=== PATIENT | male | born 1950 | race Caucasian/White ===

== ENCOUNTER → 2018-02-11 11:28 | Outpatient (CLI) | payer MEDICARE, BC, SELFPAY ==
[2018-02-11 15:57] LABS: Anion Gap 6 (5-15); BUN 20 mg/dL (7-18); BUN/Creat Ratio 16.3 RATIO (10-20); Calcium,Total 8.7 mg/dL (8.5-10.1); Chloride 106 mmol/L (98-107); Cholesterol 226 mg/dL (200); Creatinine, Serum 1.23 mg/dL (0.70-1.30); EST Glomerular Filtration Rate 62 mL/min (>60); Est Glom Filt Rate - Afr Amer 75 mL/min (>60); Glucose 117 mg/dL (74-106); Hemoglobin A1c 5.9 % (4.2-6.3); High Density Lipoprotein 47 mg/dL; PSA,Total - Annual Screen 2.34 ng/mL (0.00-4.00); Potassium 3.9 mmol/L (3.5-5.1); Sodium Level 141 mmol/L (136-145); Triglycerides 85 mg/dL; Very Low Density Lipoprotein 17 mg/dL (5-40)
== END ==
PROVIDERS: Visit Provider Family Medicine
DX: Z00.01 Encounter for general adult medical examination with abnormal findings (principal); E78.5 Hyperlipidemia, unspecified; R73.01 Impaired fasting glucose; Z12.5 Encounter for screening for malignant neoplasm of prostate
CPT/HCPCS: 36415; 80048; 80061; 83036; 84153; G0103

== ENCOUNTER → 2019-02-17 | Outpatient (CLI) | payer MEDICARE, BC, SELFPAY ==
[2019-02-17 15:42] LABS: Cholesterol 218 mg/dL (200); Glucose 104 mg/dL (74-106); High Density Lipoprotein 44 mg/dL; Triglycerides 96 mg/dL; Very Low Density Lipoprotein 19 mg/dL (5-40)
[2019-02-17 15:53] LABS: Hemoglobin A1c 5.8 % (4.2-6.3)
== END | disposition home or self-care (01) ==
LOC: LAB.FUTURE 11:13 → BFHLAB 02-19 15:24
PROVIDERS: Family Provider Family Medicine; PCP Family Medicine; Visit Provider Family Medicine
DX: E78.5 Hyperlipidemia, unspecified (principal); R73.01 Impaired fasting glucose
CPT/HCPCS: 36415; 80061; 82947; 83036

== ENCOUNTER 2020-01-26 05:29 | Day surgery (SDC) | payer MEDICARE, BC, SELFPAY ==
[2020-01-26] VITALS (8 sets, daily range): BP systolic 122–176; BP diastolic 62–109; PULSE 68–94; RESP 16; TEMP 36.4–37; O2SAT 97–100; BMI 24.9
[2020-01-26] MEDS: Lactated Ringers 1,000 ML 100 ML IV (06:01)
--- NOTE | 2020-01-26 06:12 | PCM.HP.STD ---
Problem List (1) Screening for intestinal cancer Status: Acute History of Present Illness Date of Admission: 01/26/20 The patient is a 69 year old M who presents for screening colonoscopy today. His previous one was 2008. He denies bright red blood per rectum or melena. No change in bowel habits. No abdominal pain. He otherwise enjoys good health. He denies fever or chills or shortness of breath or cough or chest pain or DVT. He denies personal history of polyps. Past Medical History Allergies No Known Allergies Allergy (Verified 01/26/20 05:42) Home Medications: Ambulatory Orders Medication Instructions Recorded Cholecalciferol (Vitamin D3) 2,000 unit PO DAILY 01/22/20 [Vitamin D3] Smoking Status: Former smoker Review of Systems Constitutional: Denies: Fever HEENT: Denies: Difficulty Swallowing Cardiovascular: Denies: Chest Pain Respiratory: Denies: Cough, Shortness of Breath Gastrointestinal: Denies: Abdominal Pain, Melena Psychiatric: Denies: Anxiety Endocrine: Denies: Change in Body Habitus VTE Information - Inpt Only VTE Present on Admission: No Patient Problems: Active and Suspected Problems Screening for intestinal cancer (Acute) - Physical Exam Vitals/I&O's: Vital Signs Temp Pulse Resp BP Pulse Ox 98.6 F 76 16 144/109 H 100 01/26/20 05:43 01/26/20 05:43 01/26/20 05:43 01/26/20 05:43 01/26/20 05:43 Oxygen Delivery Method Room Air Weight: 145 lb 4.554 oz Body Mass Index (BMI) 24.9 General: Alert, Oriented x3, Cooperative, No apparent distress HEENT: Atraumatic Oral: Moist Mucosa Neck: Supple Lungs: Clear to auscultation, Normal air movement Cardiovascular: Regular rate, Regular Rhythm Abdomen: Bowel Sounds Present, Soft, Non Tender Extremities: No Calf Tenderness Neurological: - - Normal cognition Psych/Mental Status: Normal Affect Current Medications Lactated Ringer's () 1,000 mls @ 100 mls/hr IV .Q10H EVANS Last Admin: 01/26/20 06:01 Dose: 100 mls/hr Documented by: Assessment/Plan All Active Problems Screening for intestinal cancer (Acute) Colonoscopy with possible biopsy or polypectomy is indicated. He is aware of the technique, benefit, risk, alternatives. He has had an opportunity to ask and have questions answered. He presents via open access today. We will proceed at his discretion. Duane Acosta M.D., F.A.C.S.
--- NOTE | 2020-01-26 06:47 | OP.COLON_ITS ---
Patient Name: Moris Acevedo Procedure Date: 01/26/2020 6:17 AM Date of : 1950 Age: 69 Procedure: Colonoscopy Indications: Screening for colorectal malignant neoplasm Providers: Duane Acosta MD Referring MD: Donta Prabhakar Medicines: Midazolam 3 mg IV, Meperidine 100 mg IV Patient Profile: Last Colonoscopy: more than 10 years ago. Complications: No immediate complications. Procedure: Pre-Anesthesia Assessment: - Prior to the procedure, a History and Physical was performed, and patient medications and allergies were reviewed. The patient's tolerance of previous anesthesia was also reviewed. The risks and benefits of the procedure and the sedation options and risks were discussed with the patient. All questions were answered, and informed consent was obtained. Prior Anticoagulants: The patient has taken no previous anticoagulant or antiplatelet agents. ASA Grade Assessment: II - A patient with mild systemic disease. After reviewing the risks and benefits, the patient was deemed in satisfactory condition to undergo the procedure. After I obtained informed consent, the scope was passed under direct vision. Throughout the procedure, the patient's blood pressure, pulse, and oxygen saturations were monitored continuously. The pediatric colonoscope was introduced through the anus and advanced to the cecum, identified by appendiceal orifice and ileocecal valve. The colonoscopy was performed without difficulty. The patient tolerated the procedure well. The quality of the bowel preparation was excellent. The ileocecal valve and the appendiceal orifice were photographed. Moderate Sedation: Moderate (conscious) sedation was personally administered by the endoscopist. The following parameters were monitored: oxygen saturation, heart rate, blood pressure, and response to care. Total physician intraservice time was 15 minutes. Scope In: 6:32:07 AM Scope Withdrawal Time 0 hours 6 minutes 30 seconds Scope Out: 6:43:18 AM Total Procedure Duration Time 0 hours 11 minutes 11 seconds Findings: The perianal and digital rectal examinations were normal. Multiple diverticula were found in the sigmoid colon and descending colon. The exam was otherwise without abnormality. Impression: - Diverticulosis in the sigmoid colon and in the descending colon. - The examination was otherwise normal. - No specimens collected. Recommendation: - Discharge patient to home. - Resume previous diet. - Continue present medications. - Repeat colonoscopy in 10 years for screening purposes. Procedure Code(s): --- Professional --- 47816, Colonoscopy, flexible; diagnostic, including collection of specimen(s) by brushing or washing, when performed (separate procedure) 54437, 59, Moderate sedation services provided by the same physician or other qualified health health care aide performing the diagnostic or therapeutic service that the sedation supports, requiring the presence of an independent trained observer to assist in the monitoring of the patient's level of consciousness and physiological status; initial 15 minutes of intraservice time, patient age 5 years or older Diagnosis Code(s): --- Professional --- Z12.11, Encounter for screening for malignant neoplasm of colon K57.30, Diverticulosis of large intestine without perforation or abscess without bleeding CPT copyright 2017 [employer]. All rights reserved. The codes documented in this report are preliminary and upon certified procedural coder review may be revised to meet current compliance requirements. Duane Acosta MD 01/26/2020 6:47:24 AM This report has been signed electronically. Number of Addenda: 0 Note Initiated On: 01/26/2020 6:17 AM
--- NOTE | 2020-01-26 06:47 | OP.CCLET_ITS ---
01/26/2020 Donta Prabhakar [address] [facility] [place] [address] Re : Colonoscopy procedure for Moris Acevedo Dear Dr. Prabhakar This procedure was performed on Sunday, January 26, 2020. My impressions and recommendations are as follows: Impressions : - Diverticulosis in the sigmoid colon and in the descending colon. - The examination was otherwise normal. - No specimens collected. Recommendations : - Discharge patient to home. - Resume previous diet. - Continue present medications. - Repeat colonoscopy in 10 years for screening purposes. My findings are described in the full procedure note, which is enclosed. If I can be of further assistance, please feel free to contact me at Doctor phone number(s): Work: . Sincerely, Duane Acosta MD 01/26/2020 6:47:24 AM This report has been signed electronically.
== END 2020-01-26 07:33 | disposition home or self-care (01) ==
LOC: EN 05:29 → AC 05:30
PROVIDERS: PCP Family Medicine; Referring Provider Family Medicine; Visit Provider Surgery
PROC: 0DJD8ZZ Inspection of Lower Intestinal Tract, Via Natural or Artificial Opening Endoscopic (ICD-10-PCS; CPT 45378; principal; 2020-01-26 06:25)
DX: Z12.11 Encounter for screening for malignant neoplasm of colon (principal); K57.30 Diverticulosis of large intestine without perforation or abscess without bleeding; Z11.59 Encounter for screening for other viral diseases; Z87.891 Personal history of nicotine dependence
CPT/HCPCS: G0121; 87635; 99152; 99153; C9803; J7120; U0003

== ENCOUNTER → 2020-02-11 11:05 | Outpatient (CLI) | payer MEDICARE, BC, SELFPAY ==
[2020-01-26 05:43] VITALS: BMI 24.9
[2020-02-11 15:33] LABS: Absolute Lymphocyte Count 2.25 X10^3/uL (0.83-4.51); Absolute Neutrophil Count 4.5 X10^3/uL (2.0-7.7); Basophil# 0.05 X10^3/uL; Basophil% 0.7 % (0-1); Eosinophil# 0.25 X10^3/uL; Eosinophils% 3.3 % (0-5); Hematocrit 44.6 % (40-54); Hemoglobin 14.1 g/dL (13.0-16.5); Lymphocyte # 2.25 X10^3/ul (4.0); Lymphocyte % 29.3 % (19-41); Mean Corp Hgb Conc 31.6 g/dL (32-36); Mean Corpuscular Hgb 29.4 pg (27.0-32.0); Mean Corpuscular Volume 92.9 fL (80-94); Mean Platelet Vol. 11.3 fl (6.2-12.0); Monocyte# 0.61 X10^3/uL; NRBC Flagged by Analyzer 0 % (0-5); Neutrophil # 4.49 X10^3/uL (2.7-7.7); Neutrophil % 58.4 % (47-70); Platelet Count 197 K/mm3 (150-450); RBC Distribution Width CV 13.2 % (11.6-14.6); RBC Distribution Width SD 45.2 fl (35.1-43.9); White Blood Count 7.7 K/mm3 (4.4-11.0)
[2020-02-11 15:53] LABS: AST(SGOT) 21 U/L (15-37); Alanine Aminotransfer ALT/SGPT 23 U/L (16-61); Albumin, Serum 3.6 g/dL (3.2-5.0); Alkaline Phosphatase 96 U/L (45-117); Anion Gap 7 (5-15); BUN 20 mg/dL (7-18); BUN/Creat Ratio 16.3 RATIO (10-20); Calcium,Total 8.7 mg/dL (8.5-10.1); Chloride 106 mmol/L (98-107); Cholesterol 224 mg/dL (200); Creatinine, Serum 1.23 mg/dL (0.70-1.30); EST Glomerular Filtration Rate 62 mL/min (>60); Est Glom Filt Rate - Afr Amer 75 mL/min (>60); Globulin 3.7 g/dL (2.2-4.2); Glucose 96 mg/dL (74-106); High Density Lipoprotein 53 mg/dL; PSA,Total - Annual Screen 2.19 ng/mL (0.00-4.00); Potassium 3.6 mmol/L (3.5-5.1); Protein, Total 7.3 g/dL (6.4-8.2); Sodium Level 141 mmol/L (136-145); Triglycerides 86 mg/dL; Very Low Density Lipoprotein 17 mg/dL (5-40)
== END ==
PROVIDERS: PCP Family Medicine; Visit Provider Family Medicine
DX: E78.5 Hyperlipidemia, unspecified (principal); Z12.5 Encounter for screening for malignant neoplasm of prostate; R73.01 Impaired fasting glucose; I10 Essential (primary) hypertension
CPT/HCPCS: 36415; 80053; 80061; 84153; 85025; G0103

== ENCOUNTER 2020-06-08 09:37 | Outpatient (RCR) | payer MEDICARE, BC, SELFPAY ==
[2020-01-26 05:43] VITALS: BMI 24.9
== END 2020-06-08 23:59 ==
LOC: IMMUN 09:37
PROVIDERS: PCP Family Medicine; Visit Provider Family Medicine
DX: Z23 Encounter for immunization (principal)
CPT/HCPCS: 0011A; 0012A; 91301

== ENCOUNTER → 2020-12-28 | Outpatient (CLI) | payer MEDICARE, BC, SELFPAY ==
[2020-12-31 03:07] LABS: Covid Inpatient test code BILL Performed (.)
== END | disposition home or self-care (01) ==
LOC: LABSPEC 16:56
PROVIDERS: PCP Family Medicine; Visit Provider Family Medicine
DX: Z20.828 Contact with and (suspected) exposure to other viral communicable diseases (principal)
CPT/HCPCS: 87635; U0005; U0003

== ENCOUNTER 2022-04-09 13:00 | Outpatient (RCR) | payer MEDICARE, BC, SELFPAY ==
--- NOTE | 2022-03-19 14:03 | HP.PTEVAL_ITS ---
Patient's Visit Information ALEJA SALCIDO is a 71 year old M referred to Physical Therapy by Dr. Donta Prabhakar DO with a diagnosis of Unsteady gait. Date of Evaluation: 03/19/22 Physical Therapist: JOURDAN OsbornT, OCS, CSCS - Visit Plan Duration: one f/u in 3 weeks. Plan: Taught VOR tandem stance and foam stance ft ec today 2-3 min of each by counter for safety. - Subjective As we age, I am losing a little bit if balance, not unexpectedly. Having trouble improving his proprioception. PCP gave him some exercises and some are resistance for strength but more broadly concerned about getting up off the floor. He also suggested he do some balance ex. And got suggestions from therapist 2 yrs ago like toe heel walking and has been doing them at home. Since we have moved past the [facility], he wants to ensure a good program. Wants to fine tune those exercises. No falls. No problems with activities. ADLS are going OK. Activities are limited with heavy lifting but not due to balance. 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 Hobbies: hiking and biking, birdwatching.Not many limitations in these areas. Needs walking stick at [facility]. - Objective Walks easily, trasnfers easily, steps reciprocal without rail. reflexes 2/3 patella and achilles. coordination to reciprocal toe tap and heel to ryan are good. Sensation LE WNL to gross LE. Strength LE 4/5 without a problem. VOR H walking is wobbly]standing foam ec wobbly but ablke. - Balance/Special Test Scores Functional Gait Assessment Score: 30 % Disability: 0 CATSIB Score (Max score 120 seconds): 112 Lower Extremity Functional Score: 62 - Goals Goal 1:: I approp HEOp to minimize future problems Goal Time Frame: 2-4 Weeks - Rehabilitation Potential Physical Therapy Diagnosis: Doing well with balance but appropriate to teach HEP for vestibular and VOR. - Anticipated Interventions Patient/Client Instruction: Educate patient on: Condition, Risk Factors For the Purpose of:: To improve muscle performance and motor function, To improve gait and locomotor functions Therapeutic Exercise to Include: Balance training For the Purpose of:: To improve gait and locomotor functions, To improve safety Thank you for the opportunity to evaluate your patient. For Medicare and Medicare HMO plans, please review the plan of care and approve it. It will need to be FAXED BACK to us at [phone] for Medicare purposes. For Medicare only, by signing this I certify the plan of care. Please let me know if there are questions or concerns regarding this plan of care. Physician Signature: Date:
--- NOTE | 2022-04-09 13:47 | HP.PTDCSUM ---
It has been my pleasure to treat ALEJA SALCIDO referred by Dr. Donta Prabhakar DO, with the diagnosis of Unsteady gait for a total of 2 visit(s). Discharge Date: 04/09/22 Please see the following information for a summary of their discharge status. Subjective: Did exercises all but one day.Doing better with them. % Improvement: 0 Objective/Function: safe with exercises and understands them well. Goal 1:: I approp HEp to minimize future problems Goal Progress: Goal Met Plan: Taught VOR tandem stance and foam stance ft ec today 2-3 min of each by counter for safety. If there are questions or concerns regarding this patient's physical therapy, please feel free to call me at [phone]. Thank you for the referral of this patient. Sincerely, Hal Garduno, DPT, OCS, CSCS Balance/Gait/Functional tests - Balance/Special Test Scores Functional Gait Assessment Score: 30 % Disability: 0 CATSIB Score (Max score 120 seconds): 112 Lower Extremity Functional Score: 62
== END 2022-04-09 19:00 | disposition home or self-care (01) ==
LOC: PT 13:00
PROVIDERS: PCP Family Medicine; Referring Provider Family Medicine; Visit Provider Family Medicine
DX: R26.81 Unsteadiness on feet (principal); M15.9 Polyosteoarthritis, unspecified
CPT/HCPCS: 97110; 97161

== ENCOUNTER → 2022-05-23 | Outpatient (CLI) | payer MEDICARE, BC, SELFPAY ==
[2022-05-23 15:03] LABS: Absolute Lymphocyte Count 1.88 X10^3/uL (0.83-4.51); Absolute Neutrophil Count 7.2 X10^3/uL (2.0-7.7); Basophil# 0.08 X10^3/uL; Basophil% 0.8 % (0-1); Hemoglobin 12.5 g/dL (13.0-16.5); Lymphocyte # 1.88 X10^3/ul (0.83-4.51); Lymphocyte % 18.8 % (19-41); Mean Corp Hgb Conc 31.3 g/dL (32-36); Mean Corpuscular Hgb 27.7 pg (27.0-32.0); Mean Corpuscular Volume 88.7 fL (80-94); Monocyte# 0.74 X10^3/uL; Monocyte% 7.4 % (0-10); NRBC Flagged by Analyzer 0 % (0-5); Neutrophil # 7.18 X10^3/uL (2.7-7.7); Neutrophil % 71.8 % (47-70); Platelet Count 235 K/mm3 (150-450); RBC Distribution Width CV 13.5 % (11.6-14.6); RBC Distribution Width SD 44.1 fl (35.1-43.9); Red Blood Count 4.51 M/mm3 (4.6-6.2)
[2022-05-23 15:07] LABS: Color, Urine Yellow (Yellow); Glucose, Dipstick Normal (Normal); Ketone-Dipstick 5 mg/dl (Negative); Leukocyte Esterase-Dipstick Negative /ul (Negative); Nitrite-Dipstick Negative (Negative); Occult Blood-Urine 10 /ul (Negative); Protein-Dipstick 15 mg/dl (Negative); Urine Bilirubin Dipstick Negative (Negative); Urine Urobilinogen Normal (Normal)
[2022-05-23 15:08] LABS: Urine Clarity Clear (Clear)
[2022-05-23 15:28] LABS: Hemoglobin A1c 6.1 % (3.8-5.6)
[2022-05-23 15:32] LABS: ALB/GLOB Ratio 0.9 RATIO (0.9-2.4); AST(SGOT) 16 U/L (15-37); Alanine Aminotransfer ALT/SGPT 19 U/L (16-61); Albumin, Serum 3.4 g/dL (3.2-5.0); Alkaline Phosphatase 104 U/L (45-117); Anion Gap 6 (5-15); BUN 23 mg/dL (7-18); BUN/Creat Ratio 16.5 RATIO (10-20); Chloride 106 mmol/L (98-107); Cholesterol 194 mg/dL (200); Creatinine, Serum 1.39 mg/dL (0.70-1.30); EST Glomerular Filtration Rate 53 mL/min (>60); Est Glom Filt Rate - Afr Amer 65 mL/min (>60); Globulin 3.9 g/dL (2.2-4.2); Glucose 123 mg/dL (74-106); High Density Lipoprotein 46 mg/dL; PSA,Total - Annual Screen 2.63 ng/mL (0.00-4.00); Potassium 3.8 mmol/L (3.5-5.1); Protein, Total 7.3 g/dL (6.4-8.2); Sodium Level 141 mmol/L (136-145); Triglycerides 72 mg/dL; Very Low Density Lipoprotein 14 mg/dL (5-40)
[2022-05-23 19:14] LABS: Xtra Tube EP Lab EXTRA TUBE
== END | disposition home or self-care (01) ==
LOC: BFHLAB 11:04
PROVIDERS: PCP Family Medicine; Visit Provider Family Medicine
DX: E78.5 Hyperlipidemia, unspecified (principal); R73.01 Impaired fasting glucose; R03.0 Elevated blood-pressure reading, without diagnosis of hypertension; R35.0 Frequency of micturition; R79.89 Other specified abnormal findings of blood chemistry
CPT/HCPCS: 36415; 80053; 80061; 81002; 83036; 84153; 85025; G0103

== ENCOUNTER → 2022-06-05 | Outpatient (CLI) | payer MEDICARE, BC, SELFPAY ==
[2022-06-05 16:03] LABS: Vitamin B12 258 pg/mL (211-911)
[2022-06-05 16:13] LABS: Ferritin 158 ng/mL (26-388); Iron 26 ug/dL (65-175); LDH 188 U/L (87-241)
[2022-06-08 15:08] LABS: PROEL- A/G Ratio 1.2 (0.7-1.7); PROEL- Albumin 3.5 g/dL (2.9-4.4); PROEL- Alpha-1 Globulin 0.3 g/dL (0.0-0.4); PROEL- Alpha-2 Globulin 0.8 g/dL (0.4-1.0); PROEL- Beta Globulin 0.9 g/dL (0.7-1.3); PROEL- TOTAL PROTEIN 6.5 g/dL (6.0-8.5); PROELU- Albumin, Urine 21.1 % (.); PROELU- Alpha-1-Globulin,Ur 3.8 % (.); PROELU- Alpha-2-Globulin,Ur 28.8 % (.); PROELU- Gamma Globulin, Ur 23.2 % (.); Total Protein, Ur 13.6 mg/dL (Not Estab.)
== END | disposition home or self-care (01) ==
LOC: BFHLAB 11:01
PROVIDERS: PCP Family Medicine; Visit Provider Family Medicine
DX: R79.89 Other specified abnormal findings of blood chemistry (principal); D64.9 Anemia, unspecified; R80.9 Proteinuria, unspecified
CPT/HCPCS: 36415; 82607; 82728; 82784; 83540; 83615; 84165; 84166; 86334; 86335

== ENCOUNTER → 2022-06-08 | Outpatient (CLI) | payer MEDICARE, BC, SELFPAY ==
[2022-06-11 13:07] LABS: Immunoglobulin G 896 mg/dL (603-1613)
[2022-06-12 20:52] LABS: Immunoglobulin A 43 mg/dL (61-437); Immunoglobulin M 396 mg/dL (15-143)
== END | disposition home or self-care (01) ==
LOC: BFHLAB 15:58
PROVIDERS: PCP Family Medicine; Visit Provider Family Medicine
DX: R79.89 Other specified abnormal findings of blood chemistry (principal); D64.9 Anemia, unspecified; R80.9 Proteinuria, unspecified
CPT/HCPCS: 82784; 86334

== ENCOUNTER → 2022-08-30 | Outpatient (CLI) | payer MEDICARE, BC, SELFPAY ==
--- NOTE | 2022-08-30 15:15 | US_ITS ---
STUDY: RENAL ULTRASOUND - COMPLETE REASON FOR EXAM: Male, 72 years old. CKD TECHNIQUE: Ultrasound evaluation of the kidneys was performed with real-time and static larios-scale imaging. COMPARISON: None. FINDINGS: RIGHT KIDNEY: Normal location of the right kidney, which is normal in size. The right kidney measures 9.5 cm. There is a normal cortex of the right kidney. The renal cortex measures 1.2 cm. There is no right renal mass or cyst. There are no right renal calculi. There is no right hydronephrosis. DISTAL RIGHT URETER: There is non-visualization of the distal right ureter. There is no demonstrated right ureterovesical junction calculus. There is a visualized right ureteral jet. LEFT KIDNEY: Normal location of the left kidney, which is normal in size. The left kidney measures 9.4 cm. There is a normal cortex of the left kidney. The renal cortex measures 1.3 cm. 2.5 cm cyst in the midsection of the left kidney. There are no left renal calculi. There is no left hydronephrosis. DISTAL LEFT URETER: There is non-visualization of the distal left ureter. There is no demonstrated left ureterovesical junction calculus. There is a visualized left ureteral jet. BLADDER: The distended urinary bladder has a volume of 59 ml. The empty urinary bladder has a volume of ml. There is a normal wall thickness of the distended urinary bladder. There is no demonstrated mass within the urinary bladder. There are no demonstrated bladder calculi. US/Kidney and Bladder IMPRESSION: Normal ultrasound of the kidneys and urinary bladder. Left renal cyst. Electronically Signed: Bill Amos MD at 21:03 EDT ,
== END | disposition home or self-care (01) ==
LOC: US 15:13
PROVIDERS: PCP Family Medicine; Referring Provider Internal Medicine Nephrology; Visit Provider Internal Medicine Nephrology
DX: N18.32 Chronic kidney disease, stage 3b (principal)
CPT/HCPCS: 76770

== ENCOUNTER → 2022-10-03 | Outpatient (CLI) | payer MEDICARE, BC, SELFPAY ==
[2022-10-03 15:37] LABS: BUN 20 mg/dL (7-18); BUN/Creat Ratio 16.4 RATIO (10-20); Chloride 108 mmol/L (98-107); Creatinine, Serum 1.22 mg/dL (0.70-1.30); EST Glomerular Filtration Rate 62 mL/min (>60); Est Glom Filt Rate - Afr Amer 75 mL/min (>60); Glucose 113 mg/dL (74-106); Phosphorus 2.4 mg/dL (2.5-4.9); Potassium 3.8 mmol/L (3.5-5.1); Sodium Level 140 mmol/L (136-145)
[2022-10-03 15:40] LABS: Hematocrit 37.2 % (40-54); Mean Corp Hgb Conc 29.6 g/dL (32-36); Mean Corpuscular Hgb 25.6 pg (27.0-32.0); Mean Corpuscular Volume 86.7 fL (80-94); Mean Platelet Vol. 10.3 fl (6.2-12.0); Platelet Count 276 K/mm3 (150-450); RBC Distribution Width SD 44.4 fl (35.1-43.9); Red Blood Count 4.29 M/mm3 (4.6-6.2); White Blood Count 12.4 K/mm3 (4.4-11.0)
[2022-10-03 15:47] LABS: PTHIN 76.5 pg/mL (18.4-80.1)
== END | disposition home or self-care (01) ==
LOC: BFHLAB 13:33
PROVIDERS: PCP Family Medicine; Referring Provider Internal Medicine Nephrology; Visit Provider Internal Medicine Nephrology
DX: N18.32 Chronic kidney disease, stage 3b (principal)
CPT/HCPCS: 36415; 80069; 83970; 85027

== ENCOUNTER → 2023-05-29 | Outpatient (CLI) | payer MEDICARE, BC, SELFPAY ==
[2023-05-29 15:04] LABS: Absolute Lymphocyte Count 1.53 X10^3/uL (0.83-4.51); Absolute Neutrophil Count 8.5 X10^3/uL (2.0-7.7); Basophil# 0.06 X10^3/uL; Basophil% 0.6 % (0-1); Eosinophil# 0.08 X10^3/uL; Eosinophils% 0.7 % (0-5); Hematocrit 37.3 % (40-54); Hemoglobin 11.2 g/dL (13.0-16.5); Lymphocyte # 1.53 X10^3/ul (0.83-4.51); Lymphocyte % 14.1 % (19-41); Mean Corpuscular Hgb 25.6 pg (27.0-32.0); Mean Corpuscular Volume 85.4 fL (80-94); Mean Platelet Vol. 10.2 fl (6.2-12.0); Monocyte# 0.66 X10^3/uL; Monocyte% 6.1 % (0-10); NRBC Flagged by Analyzer 0 % (0-5); Neutrophil % 78.3 % (47-70); Platelet Count 251 K/mm3 (150-450); RBC Distribution Width CV 14.8 % (11.6-14.6); RBC Distribution Width SD 46.4 fl (35.1-43.9); Red Blood Count 4.37 M/mm3 (4.6-6.2); White Blood Count 10.9 K/mm3 (4.4-11.0)
[2023-05-29 15:24] LABS: ALB/GLOB Ratio 0.7 RATIO (0.9-2.4); AST(SGOT) 16 U/L (15-37); Alanine Aminotransfer ALT/SGPT 22 U/L (16-61); Albumin, Serum 3.1 g/dL (3.2-5.0); Alkaline Phosphatase 117 U/L (45-117); Anion Gap 7 (5-15); BUN 19 mg/dL (7-18); BUN/Creat Ratio 12.6 RATIO (10-20); Calcium,Total 9.3 mg/dL (8.5-10.1); Chloride 106 mmol/L (98-107); Cholesterol 190 mg/dL (200); Creatinine, Serum 1.51 mg/dL (0.70-1.30); EST Glomerular Filtration Rate 48 mL/min (>60); Est Glom Filt Rate - Afr Amer 59 mL/min (>60); Globulin 4.2 g/dL (2.2-4.2); Glucose 107 mg/dL (74-106); High Density Lipoprotein 45 mg/dL; PSA,Total - Annual Screen 2.07 ng/mL (0.00-4.00); Potassium 3.8 mmol/L (3.5-5.1); Protein, Total 7.3 g/dL (6.4-8.2); Sodium Level 138 mmol/L (136-145); Triglycerides 70 mg/dL; Very Low Density Lipoprotein 14 mg/dL (5-40)
== END | disposition home or self-care (01) ==
PROVIDERS: PCP Family Medicine; Referring Provider Family Medicine; Visit Provider Family Medicine
DX: I10 Essential (primary) hypertension (principal); E78.5 Hyperlipidemia, unspecified; Z12.5 Encounter for screening for malignant neoplasm of prostate
CPT/HCPCS: 36415; 80053; 80061; 84153; 85025; G0103

== ENCOUNTER → 2023-07-04 | Outpatient (CLI) | payer MEDICARE, BC, SELFPAY | END | disposition home or self-care (01) | LOC: SL 11:45 | PROVIDERS: PCP Family Medicine; Referring Provider Family Medicine; Visit Provider Family Medicine | DX: G47.30 Sleep apnea, unspecified (principal) | CPT/HCPCS: 95806 ==

== ENCOUNTER → 2023-12-02 | Outpatient (CLI) | payer MEDICARE, BC, SELFPAY ==
[2023-12-02 15:14] LABS: Absolute Lymphocyte Count 1.76 X10^3/uL (0.83-4.51); Absolute Neutrophil Count 7.6 X10^3/uL (2.0-7.7); Basophil# 0.06 X10^3/uL; Basophil% 0.6 % (0-1); Eosinophil# 0.25 X10^3/uL; Eosinophils% 2.4 % (0-5); Hematocrit 39.9 % (40-54); Lymphocyte # 1.76 X10^3/ul (0.83-4.51); Lymphocyte % 17.1 % (19-41); Mean Corp Hgb Conc 30.1 g/dL (32-36); Mean Corpuscular Hgb 25.8 pg (27.0-32.0); Mean Corpuscular Volume 85.8 fL (80-94); Monocyte# 0.64 X10^3/uL; Monocyte% 6.2 % (0-10); NRBC Flagged by Analyzer 0 % (0-5); Neutrophil # 7.58 X10^3/uL (2.7-7.7); Neutrophil % 73.5 % (47-70); Platelet Count 253 K/mm3 (150-450); RBC Distribution Width CV 14.8 % (11.6-14.6); RBC Distribution Width SD 46.9 fl (35.1-43.9); Red Blood Count 4.65 M/mm3 (4.6-6.2); White Blood Count 10.3 K/mm3 (4.4-11.0)
[2023-12-02 15:35] LABS: ALB/GLOB Ratio 0.8 RATIO (0.9-2.4); AST(SGOT) 17 U/L (15-37); Alanine Aminotransfer ALT/SGPT 17 U/L (16-61); Albumin, Serum 3.2 g/dL (3.2-5.0); Alkaline Phosphatase 82 U/L (45-117); Anion Gap 7 (5-15); BUN 22 mg/dL (7-18); BUN/Creat Ratio 16.3 RATIO (10-20); Calcium,Total 9.2 mg/dL (8.5-10.1); Chloride 105 mmol/L (98-107); Creatinine, Serum 1.35 mg/dL (0.70-1.30); EST Glomerular Filtration Rate 55 mL/min (>60); Est Glom Filt Rate - Afr Amer 67 mL/min (>60); Ferritin 119 ng/mL (26-388); Globulin 4.2 g/dL (2.2-4.2); Glucose 114 mg/dL (74-106); Iron 37 ug/dL (65-175); Phosphorus 2.6 mg/dL (2.5-4.9); Potassium 3.9 mmol/L (3.5-5.1); Protein, Total 7.4 g/dL (6.4-8.2); Sodium Level 138 mmol/L (136-145)
[2023-12-02 15:36] LABS: PTHIN 64.9 pg/mL (18.4-80.1)
[2023-12-02 15:38] LABS: Vitamin B12 1274 pg/mL (211-911); Vitamin D,25 Hydroxy 46.1 ng/mL
[2023-12-02 16:03] LABS: Microalbumin,Random Urine 21.5 mg/L (NO RANGE EST.); Microalbumin:Creatinine Ratio 16.3 mg/g CRE (<30 mg/g CRE)
== END | disposition home or self-care (01) ==
LOC: MTLAB 10:57
PROVIDERS: PCP Family Medicine; Referring Provider Family Medicine; Visit Provider Family Medicine
DX: N18.31 Chronic kidney disease, stage 3a (principal); D64.9 Anemia, unspecified
CPT/HCPCS: 36415; 80053; 82043; 82306; 82570; 82607; 82728; 83540; 83970; 84100; 85025

== ENCOUNTER → 2024-06-01 | Outpatient (CLI) | payer MEDICARE, BC, SELFPAY ==
[2024-06-01 15:37] LABS: Absolute Lymphocyte Count 1.81 X10^3/uL (0.83-4.51); Absolute Neutrophil Count 7.6 X10^3/uL (2.0-7.7); Basophil# 0.07 X10^3/uL; Basophil% 0.7 % (0-1); Eosinophil# 0.12 X10^3/uL; Eosinophils% 1.2 % (0-5); Hematocrit 38.5 % (40-54); Hemoglobin 11.3 g/dL (13.0-16.5); Lymphocyte # 1.81 X10^3/ul (0.83-4.51); Lymphocyte % 17.4 % (19-41); Mean Corp Hgb Conc 29.4 g/dL (32-36); Mean Corpuscular Hgb 23.4 pg (27.0-32.0); Mean Corpuscular Volume 79.9 fL (80-94); Mean Platelet Vol. 11.1 fl (6.2-12.0); Monocyte# 0.76 X10^3/uL; Monocyte% 7.3 % (0-10); NRBC Flagged by Analyzer 0 % (0-5); Neutrophil # 7.61 X10^3/uL (2.7-7.7); Neutrophil % 73.2 % (47-70); Platelet Count 304 K/mm3 (150-450); RBC Distribution Width SD 43.5 fl (35.1-43.9); Red Blood Count 4.82 M/mm3 (4.6-6.2); White Blood Count 10.4 K/mm3 (4.4-11.0)
[2024-06-01 16:13] LABS: ALB/GLOB Ratio 0.8 RATIO (0.9-2.4); AST(SGOT) 12 U/L (15-37); Alanine Aminotransfer ALT/SGPT 15 U/L (16-61); Albumin, Serum 3.3 g/dL (3.2-5.0); Alkaline Phosphatase 95 U/L (45-117); Anion Gap 7 (5-15); BUN 19 mg/dL (7-18); BUN/Creat Ratio 12.8 RATIO (10-20); Calcium,Total 9.2 mg/dL (8.5-10.1); Chloride 105 mmol/L (98-107); Cholesterol 185 mg/dL (200); Creatinine, Serum 1.48 mg/dL (0.70-1.30); EST Glomerular Filtration Rate 49 mL/min (>60); Est Glom Filt Rate - Afr Amer 60 mL/min (>60); Glucose 113 mg/dL (74-106); High Density Lipoprotein 51 mg/dL; Phosphorus 2.8 mg/dL (2.5-4.9); Potassium 3.8 mmol/L (3.5-5.1); Protein, Total 7.3 g/dL (6.4-8.2); Sodium Level 139 mmol/L (136-145); Triglycerides 80 mg/dL; Very Low Density Lipoprotein 16 mg/dL (5-40)
[2024-06-01 16:16] LABS: Vitamin B12 885 pg/mL (211-911)
[2024-06-01 16:21] LABS: PTHIN 54.3 pg/mL (18.4-80.1)
[2024-06-01 16:45] LABS: Hemoglobin A1c 6.3 % (3.8-5.6)
== END | disposition home or self-care (01) ==
LOC: MTLAB 11:32
PROVIDERS: PCP Family Medicine; Referring Provider Family Medicine; Visit Provider Family Medicine
DX: I12.9 Hypertensive chronic kidney disease with stage 1 through stage 4 chronic kidney disease, or unspecified chronic kidney disease (principal); N18.31 Chronic kidney disease, stage 3a; D64.9 Anemia, unspecified; E78.5 Hyperlipidemia, unspecified; R73.01 Impaired fasting glucose; E53.8 Deficiency of other specified B group vitamins
CPT/HCPCS: 36415; 80053; 80061; 82607; 83036; 83970; 84100; 85025

== ENCOUNTER → 2024-06-09 | Outpatient (CLI) | payer MEDICARE, BC, SELFPAY ==
[2024-06-09 18:26] LABS: PSA,Total - Annual Screen 2.38 ng/mL (0.00-4.00)
== END | disposition home or self-care (01) ==
LOC: BFHLAB 15:11
PROVIDERS: PCP Family Medicine; Referring Provider Family Medicine; Visit Provider Family Medicine
DX: I12.9 Hypertensive chronic kidney disease with stage 1 through stage 4 chronic kidney disease, or unspecified chronic kidney disease (principal); R73.03 Prediabetes; N18.9 Chronic kidney disease, unspecified; D64.9 Anemia, unspecified; Z12.5 Encounter for screening for malignant neoplasm of prostate
CPT/HCPCS: 36415; 84153; G0103

== ENCOUNTER → 2024-11-30 | Outpatient (CLI) | payer MEDICARE, BC, SELFPAY ==
[2024-11-30 15:25] LABS: Hematocrit 32.1 % (40-54); Hemoglobin 9.1 g/dL (13.0-16.5); Immature Granulocytes Count 0.040 X10^3/uL (0.0-0.0); Mean Corp Hgb Conc 28.3 g/dL (32-36); Mean Corpuscular Volume 75.4 fL (80-94); Mean Platelet Vol. 11.1 fl (6.2-12.0); NRBC Flagged by Analyzer 0 % (0-5); Platelet Count 334 K/mm3 (150-450); RBC Distribution Width CV 16.3 % (11.6-14.6); RBC Distribution Width SD 44.4 fl (35.1-43.9); Red Blood Count 4.26 M/mm3 (4.6-6.2); White Blood Count 12.9 K/mm3 (4.4-11.0)
[2024-11-30 16:42] LABS: Cholesterol 160 mg/dL (<=200); Low Density Lipoprotein Calc. 103 mg/dL; Triglycerides 53 mg/dL; Very Low Density Lipoprotein 11 mg/dL (5-40); cholesterol:hdl ratio screen 3.46
[2024-11-30 16:44] LABS: AST(SGOT) 14 U/L (<=37); Alanine Aminotransfer ALT/SGPT 9 U/L (<=46); Albumin, Serum 3.7 g/dL (3.4-4.8); Alkaline Phosphatase 87 U/L (40-129); Anion Gap 12 (5-15); BUN 29 mg/dL (4-19); BUN/Creat Ratio 20.7 RATIO (10-20); Calcium,Total 9.0 mg/dL (7.6-11.0); Carbon Dioxide 22.3 mmol/L (21.0-32.0); Chloride 105 mmol/L (98-108); Globulin 3.1 g/dL (2.2-4.2); Glucose 117 mg/dL (70-99); Potassium 4.1 mmol/L (3.3-5.1)
--- OUTSIDE RECORDS SUMMARY | 2024-11-30 18:45 | XMS RPT_ITS | CCD ---
Author Organization [facility] Care Team Providers Care Oil Recovery Operator Name Role Phone Donta Prabhakar Attending Unavailable Donta Prabhakar Referring Unavailable Donta Prabhakar Primary Care Unavailable Donta Prabhakar Attending Unavailable Donta Prabhakar Referring Unavailable Donta Prabhakar Primary Care Unavailable Donta Prabhakar Attending Unavailable Vanna, Donta Primary Care Unavailable Vanna, Donta Primary Care Unavailable Rosa Maria Aquino Attending Unavailable Rosa Maria Aquino Attending Unavailable Donta Prabhakar Primary Care Unavailable Donta Prabhakar Attending Unavailable Vanna, Donta Primary Care Unavailable Donta Prabhakar Primary Care Unavailable Donta Prabhakar Attending Unavailable Donta Prabhakar Referring Unavailable Donta Prabhakar Attending Unavailable Donta Prabhakar Referring Unavailable Donta Prabhakar Primary Care Unavailable Medications Current Medications Medication Drug Class(es) Dates Sig (Normalized) Sig (Original) cholecalciferol 0.05 mg oral capsule (6 sources) Vitamin D Start: 01-22-2020 take 2000 [IU] by mouth once daily Cholecalciferol (Vitamin D3) Active 2000 UNIT PO DAILY January 22, 2020 12:00am Problems Problem Classification Problem Date Documented Da te Episodic/Chronic Chronic kidney disease (3 sources) Chronic kidney disease; Translations: [Chronic kidney disease, stage 3a] Onset: 10-07-2023 Diabetes mellitus without complication (1 source) Prediabetes; Translations: [Prediabetes] Onset: 06-11-2024 Episodic Essential hypertension (1 source) Essential (primary) hypertension; Translations: [Essential (primary) hypertension] Onset: 06-11-2024 Chronic Hypertension with complications and secondary hypertension (1 source) Hypertensive chronic kidney disease with stage 1 through stage 4 chronic kidney disease, or unspecified chronic kidney disease; Translations: [Hypertensive chronic kidney disease with stage 1 through stage 4 chronic kidney disease, or unspecified chronic kidney disease] Onset: 06-24-2024 Chronic Other screening for suspected conditions (not mental disorders or infectious disease) (6 sources) Patient encounter status; Translations: [Encounter for screening for malignant neoplasm of intestinal tract, unspecified] 01-26-2020 Episodic Residual codes; unclassified (1 source) Sleep apnea, unspecified; Translations: [Sleep apnea, unspecified] Onset: 07-09-2023 Chronic Results Test Name Value Interpretation Reference Range Facility PSA,Total - Annual Screenon 06-09-2024 PSA,TOT SCREEN 2.38 ng/mL Normal 0.00-4.00 [facility] Comment on above: Result Comment: This test was performed using the TPSA assay method for the [employer] chemistry system. Values obtained with different assay methods cannot be used interchangably. When changing PSA assays in the course of monitoring a patient, additional sequential testing should be carried out to confirm baseline values. Performed By: #### L 501.9910 #### [facility] [address] [place], [address] CBC W/Diff, Automatedon 05-23 Absolute Lymph 1.81 X10 3/uL Normal 0.83-4.51 [facility] Comment on above: Performed By: #### L 502.0250, L503.0105, L506.1000, L100.0100, L503.6550, L501.2300, L503.6150, L500.4050, L509.1000 #### [facility] [address] [place], [address] Absolute Neut 7.6 X10 3/uL Normal 2.0-7.7 [facility] Comment on above: Performed By: #### L 502.0250, L503.0105, L506.1000, L100.0100, L503.6550, L501.2300, L503.6150, L500.4050, L509.1000 #### [facility] [address] [place], [address] Basophils/100 WBC (Bld) 0.7 % Normal 0-1 [facility] Comment on above: Performed By: #### L 502.0250, L503.0105, L506.1000, L100.0100, L503.6550, L501.2300, L503.6150, L500.4050, L509.1000 #### [facility] [address] [place], [address] Eosinophils/100 WBC (Bld) 1.2 % Normal 0-5 [facility] Comment on above: Performed By: #### L 502.0250, L503.0105, L506.1000, L100.0100, L503.6550, L501.2300, L503.6150, L500.4050, L509.1000 #### [facility] [address] [facility] [place], [address] Erythrocyte distribution width (RBC) [Ratio] 15.0 % High 11.6-14.6 [facility] Comment on above: Performed By: #### L 502.0250, L503.0105, L506.1000, L100.0100, L503.6550, L501.2300, L503.6150, L500.4050, L509.1000 #### [facility] [address] [facility] [place], [address] Hematocrit (Bld) [Volume fraction] 38.5 % Low 40-54 [facility] Comment on above: Performed By: #### L 502.0250, L503.0105, L506.1000, L100.0100, L503.6550, L501.2300, L503.6150, L500.4050, L509.1000 #### [facility] [address] [place], [address] Hemoglobin (Bld) [Mass/Vol] 11.3 g/dL Low 13.0-16.5 [facility] Comment on above: Performed By: #### L 502.0250, L503.0105, L506.1000, L100.0100, L503.6550, L501.2300, L503.6150, L500.4050, L509.1000 #### [facility] [address] [place], [address] IG% 0.200 Normal 0.0-0.9 [facility] Comment on above: Result Comment: IG% - Immature Granulocytes (promyelocytes, myelocytes and metamyelocytes) > 1% indicates that a LEFT SHIFT is Present. Performed By: #### L 502.0250, L503.0105, L506.1000, L100.0100, L503.6550, L501.2300, L503.6150, L500.4050, L509.1000 #### [facility] [address] [facility] [address] [place], [address] Lymphocytes/100 WBC (Bld) 17.4 % Low 19-41 [facility] Comment on above: Performed By: #### L 502.0250, L503.0105, L506.1000, L100.0100, L503.6550, L501.2300, L503.6150, L500.4050, L509.1000 #### [facility] [address] [facility] [place], [address] MCH (RBC) [Entitic mass] 23.4 pg Low 27.0-32.0 [facility] Comment on above: Performed By: #### L 502.0250, L503.0105, L506.1000, L100.0100, L503.6550, L501.2300, L503.6150, L500.4050, L509.1000 #### [facility] [address] [place], [address] MCHC (RBC) [Mass/Vol] 29.4 g/dL Low 32-36 [facility] Comment on above: Performed By: #### L 502.0250, L503.0105, L506.1000, L100.0100, L503.6550, L501.2300, L503.6150, L500.4050, L509.1000 #### [facility] [address] [place], [address] MCV (RBC) [Entitic vol] 79.9 fL Low 80-94 [facility] Comment on above: Performed By: #### L 502.0250, L503.0105, L506.1000, L100.0100, L503.6550, L501.2300, L503.6150, L500.4050, L509.1000 #### [facility] [address] [place], [address] Monocytes/100 WBC (Bld) 7.3 % Normal 0-10 [facility] Comment on above: Performed By: #### L 502.0250, L503.0105, L506.1000, L100.0100, L503.6550, L501.2300, L503.6150, L500.4050, L509.1000 #### [facility] [address] [place], [address] Neutrophils/100 WBC (Bld) 73.2 % High 47-70 [facility] Comment on above: Performed By: #### L 502.0250, L503.0105, L506.1000, L100.0100, L503.6550, L501.2300, L503.6150, L500.4050, L509.1000 #### [facility] [address] [place], [address] Nucleated RBC (Bld) [#/Vol] 0 10*3/uL Normal 0-5 [facility] Comment on above: Performed By: #### L 502.0250, L503.0105, L506.1000, L100.0100, L503.6550, L501.2300, L503.6150, L500.4050, L509.1000 #### [facility] [address] [place], [address] Platelet mean volume (Bld) [Entitic vol] 11.1 fL Normal 6.2-12.0 [facility] Comment on above: Performed By: #### L 502.0250, L503.0105, L506.1000, L100.0100, L503.6550, L501.2300, L503.6150, L500.4050, L509.1000 #### [facility] [address] [place], [address] Platelets (Bld) [#/Vol] 304 10*3/uL Normal 150-450 [facility] Comment on above: Performed By: #### L 502.0250, L503.0105, L506.1000, L100.0100, L503.6550, L501.2300, L503.6150, L500.4050, L509.1000 #### [facility] [address] [facility] [place], [address] RBC (Bld) [#/Vol] 4.82 10*6/uL Normal 4.6-6.2 [facility] Comment on above: Performed By: #### L 502.0250, L503.0105, L506.1000, L100.0100, L503.6550, L501.2300, L503.6150, L500.4050, L509.1000 #### [facility] [address] [facility] [place], [address] RDW SD 43.5 fl Normal 35.1-43.9 [facility] Comment on above: Performed By: #### L 502.0250, L503.0105, L506.1000, L100.0100, L503.6550, L501.2300, L503.6150, L500.4050, L509.1000 #### [facility] [address] [place], [address] WBC (Bld) [#/Vol] 10.4 10*3/uL Normal 4.4-11.0 [facility] Comment on above: Performed By: #### L 502.0250, L503.0105, L506.1000, L100.0100, L503.6550, L501.2300, L503.6150, L500.4050, L509.1000 #### [facility] [address] [place], [address] Comprehensive Metabolic Prof ilon 06-01-2024 Albumin [Mass/Vol] 3.3 g/dL Normal 3.2-5.0 [facility] Comment on above: Performed By: #### L 502.0250, L503.0105, L506.1000, L100.0100, L503.6550, L501.2300, L503.6150, L500.4050, L509.1000 #### [facility] [address] [place], [address] Albumin/Globulin [Mass ratio] 0.8 {ratio} Low 0.9-2.4 [facility] Comment on above: Performed By: #### L 502.0250, L503.0105, L506.1000, L100.0100, L503.6550, L501.2300, L503.6150, L500.4050, L509.1000 #### [facility] [address] [place], [address] ALK P 95 U/L Normal 45-117 [facility] Comment on above: Performed By: #### L 502.0250, L503.0105, L506.1000, L100.0100, L503.6550, L501.2300, L503.6150, L500.4050, L509.1000 #### [facility] [address] [place], [address] ALT [Catalytic activity/Vol] 15 U/L Low 16-61 [facility] Comment on above: Performed By: #### L 502.0250, L503.0105, L506.1000, L100.0100, L503.6550, L501.2300, L503.6150, L500.4050, L509.1000 #### [facility] [address] [place], [address] AST [Catalytic activity/Vol] 12 U/L Low 15-37 [facility] Comment on above: Performed By: #### L 502.0250, L503.0105, L506.1000, L100.0100, L503.6550, L501.2300, L503.6150, L500.4050, L509.1000 #### [facility] [address] [place], [address] Bilirubin [Mass/Vol] 0.30 mg/dL Normal 0.20-1.00 [facility] Comment on above: Result Comment: For patients on eltrombopag therapy, use of Dimension [place] TBIL is not recommended. Performed By: #### L 502.0250, L503.0105, L506.1000, L100.0100, L503.6550, L501.2300, L503.6150, L500.4050, L509.1000 #### [facility] [address] [place], [address] BUN/CRE 12.8 RATIO Normal 10-20 [facility] Comment on above: Performed By: #### L 502.0250, L503.0105, L506.1000, L100.0100, L503.6550, L501.2300, L503.6150, L500.4050, L509.1000 #### [facility] [address] [place], [address] CA,Total 9.2 mg/dL Normal 8.5-10.1 [facility] Comment on above: Performed By: #### L 502.0250, L503.0105, L506.1000, L100.0100, L503.6550, L501.2300, L503.6150, L500.4050, L509.1000 #### [facility] [address] [place], [address] Chloride [Moles/Vol] 105 mmol/L Normal 98-107 [facility] Comment on above: Performed By: #### L 502.0250, L503.0105, L506.1000, L100.0100, L503.6550, L501.2300, L503.6150, L500.4050, L509.1000 #### [facility] [address] [place], [address] CO2 [Moles/Vol] 27.0 mmol/L Normal 21.0-32.0 [facility] Comment on above: Performed By: #### L 502.0250, L503.0105, L506.1000, L100.0100, L503.6550, L501.2300, L503.6150, L500.4050, L509.1000 #### [facility] [address] [place], [address] Creatinine [Mass/Vol] 1.48 mg/dL High 0.70-1.30 [facility] Comment on above: Result Comment: The validity of the calculated GFR GFRAA in patients over 70 years has not been determined. Clinical correlation is essential. Performed By: #### L 502.0250, L503.0105, L506.1000, L100.0100, L503.6550, L501.2300, L503.6150, L500.4050, L509.1000 #### [facility] [address] [place], [address] EST GFR - AA 60 mL/min Normal >60 [facility] Comment on above: Result Comment: Afri can Citizen [place] GFR Calc Performed By: #### L 502.0250, L503.0105, L506.1000, L100.0100, L503.6550, L501.2300, L503.6150, L500.4050, L509.1000 #### [facility] [address] [place], [address] GAP 7 Normal 5-15 [facility] Comment on above: Performed By: #### L 502.0250, L503.0105, L506.1000, L100.0100, L503.6550, L501.2300, L503.6150, L500.4050, L509.1000 #### [facility] [address] [place], [address] GFR/1.73 sq M.predicted among non-blacks MDRD (S/P/Bld) [Vol rate/Area] 49 mL/min/{1.73_m2} Low >60 [facility] Comment on above: Result Comment: Non- GFR Calc Performed By: #### L 502.0250, L503.0105, L506.1000, L100.0100, L503.6550, L501.2300, L503.6150, L500.4050, L509.1000 #### [facility] [address] [place], [address] Globulin (S) [Mass/Vol] 4.0 g/dL Normal 2.2-4.2 [facility] Comment on above: Performed By: #### L 502.0250, L503.0105, L506.1000, L100.0100, L503.6550, L501.2300, L503.6150, L500.4050, L509.1000 #### [facility] [address] [place], [address] Glucose [Mass/Vol] 113 mg/dL High 74-106 [facility] Comment on above: Result Comment: Fast ing Glucose result from 100 to 125 mg/dL suggests IMPAIRED HOMEOSTASIS per A.D.A. criteria. Performed By: #### L 502.0250, L503.0105, L506.1000, L100.0100, L503.6550, L501.2300, L503.6150, L500.4050, L509.1000 #### [facility] [address] [place], [address] Potassium [Moles/Vol] 3.8 mmol/L Normal 3.5-5.1 [facility] Comment on above: Performed By: #### L 502.0250, L503.0105, L506.1000, L100.0100, L503.6550, L501.2300, L503.6150, L500.4050, L509.1000 #### [facility] [address] [place], [address] Sodium [Moles/Vol] 139 mmol/L Normal 136-145 [facility] Comment on above: Performed By: #### L 502.0250, L503.0105, L506.1000, L100.0100, L503.6550, L501.2300, L503.6150, L500.4050, L509.1000 #### [facility] [address] [place], [address] T PROT 7.3 g/dL Normal 6.4-8.2 [facility] Comment on above: Performed By: #### L 502.0250, L503.0105, L506.1000, L100.0100, L503.6550, L501.2300, L503.6150, L500.4050, L509.1000 #### [facility] [address] [place], [address] Urea nitrogen [Mass/Vol] 19 mg/dL High 7-18 [facility] Comment on above: Performed By: #### L 502.0250, L503.0105, L506.1000, L100.0100, L503.6550, L501.2300, L503.6150, L500.4050, L509.1000 #### [facility] [address] [place], [address] Hemoglobin A1con 06-01-2024 HbA1c (Bld) [Mass fraction] 6.3 % High 3.8-5.6 [facility] Comment on above: Result Comment: Norm al < 5.7 % Prediabetic 5.7 - 6.4 % Diabetic >or= 6.5 % Please note range changes. Performed By: #### L 502.0250, L503.0105, L506.1000, L100.0100, L503.6550, L501.2300, L503.6150, L500.4050, L509.1000 #### [facility] [address] [place], [address] Lipid Profileon 06-01-2024 Cholesterol [Mass/Vol] 185 mg/dL Normal 200 [facility] Comment on above: Result Comment: <200 mg/dL Desirable 200-240 mg/dL Borderline >240 mg/dL High Risk Performed By: #### L 502.0250, L503.0105, L506.1000, L100.0100, L503.6550, L501.2300, L503.6150, L500.4050, L509.1000 #### [facility] [address] [place], [place], [id number] (569) Cholesterol in HDL [Mass/Vol] 51 mg/dL Normal [facility] Comment on above: Result Comment: The drugs N-Acetylcysteine and Metamizole may falsely depress this assay. Reference Range HDL <40 mg/dL Low HDL Cholesterol HDL >or= 60 mg/dL High HDL Cholesterol Performed By: #### L 502.0250, L503.0105, L506.1000, L100.0100, L503.6550, L501.2300, L503.6150, L500.4050, L509.1000 #### [facility] [address] [place], [address] Cholesterol in LDL [Mass/Vol] 118 mg/dL Normal 0-130 [facility] Comment on above: Performed By: #### L 502.0250, L503.0105, L506.1000, L100.0100, L503.6550, L501.2300, L503.6150, L500.4050, L509.1000 #### [facility] [address] [place], [address] Cholesterol in VLDL [Mass/Vol] 16 mg/dL Normal 5-40 [facility] Comment on above: Performed By: #### L 502.0250, L503.0105, L506.1000, L100.0100, L503.6550, L501.2300, L503.6150, L500.4050, L509.1000 #### [facility] [address] [place], [address] Triglyceride [Mass/Vol] 80 mg/dL Normal [facility] Comment on above: Result Comment: The drugs N-Acetylcysteine and Metamizole may falsely depress this assay. Serum Triglycerides Reference Interval Normal <150 mg/dL Borderline high 150 - 199 mg/dL High 200 - 499 mg/dL Very High > or = 500 mg/dL Performed By: #### L 502.0250, L503.0105, L506.1000, L100.0100, L503.6550, L501.2300, L503.6150, L500.4050, L509.1000 #### [facility] [address] [place], [address] PTHINon 06-01-2024 PTH 54.3 pg/mL Normal 18.4-80.1 [facility] Comment on above: Performed By: #### L 502.0250, L503.0105, L506.1000, L100.0100, L503.6550, L501.2300, L503.6150, L500.4050, L509.1000 #### [facility] [address] [place], [address] Phosphoruson 06-01-2024 Phosphate [Mass/Vol] 2.8 mg/dL Normal 2.5-4.9 [facility] Comment on above: Performed By: #### L 502.0250, L503.0105, L506.1000, L100.0100, L503.6550, L501.2300, L503.6150, L500.4050, L509.1000 #### [facility] [address] [place], [address] Vitamin B12on 06-01-2024 Cobalamin (Vitamin B12) [Mass/Vol] 885 pg/mL Normal 211-911 [facility] Comment on above: Performed By: #### L 502.0250, L503.0105, L506.1000, L100.0100, L503.6550, L501.2300, L503.6150, L500.4050, L509.1000 #### [facility] [address] [place], [address] CBC W/Diff, Automatedon 11-20 Absolute Lymph 1.76 X10 3/uL Normal 0.83-4.51 [facility] Comment on above: Performed By: #### L 502.0250, L503.0105, L506.1000, L100.0100, L503.6550, L501.2300, L503.6150, L500.4050, L509.1000 #### [facility] [address] [place], [address] Absolute Neut 7.6 X10 3/uL Normal 2.0-7.7 [facility] Comment on above: Performed By: #### L 502.0250, L503.0105, L506.1000, L100.0100, L503.6550, L501.2300, L503.6150, L500.4050, L509.1000 #### [facility] [address] [place], [address] Basophils/100 WBC (Bld) 0.6 % Normal 0-1 [facility] Comment on above: Performed By: #### L 502.0250, L503.0105, L506.1000, L100.0100, L503.6550, L501.2300, L503.6150, L500.4050, L509.1000 #### [facility] [address] [place], [address] Eosinophils/100 WBC (Bld) 2.4 % Normal 0-5 [facility] Comment on above: Performed By: #### L 502.0250, L503.0105, L506.1000, L100.0100, L503.6550, L501.2300, L503.6150, L500.4050, L509.1000 #### [facility] [address] [facility] [place], [address] Erythrocyte distribution width (RBC) [Ratio] 14.8 % High 11.6-14.6 [facility] Comment on above: Performed By: #### L 502.0250, L503.0105, L506.1000, L100.0100, L503.6550, L501.2300, L503.6150, L500.4050, L509.1000 #### [facility] [address] [facility] [place], [address] Hematocrit (Bld) [Volume fraction] 39.9 % Low 40-54 [facility] Comment on above: Performed By: #### L 502.0250, L503.0105, L506.1000, L100.0100, L503.6550, L501.2300, L503.6150, L500.4050, L509.1000 #### [facility] [address] [place], [address] Hemoglobin (Bld) [Mass/Vol] 12.0 g/dL Low 13.0-16.5 [facility] Comment on above: Performed By: #### L 502.0250, L503.0105, L506.1000, L100.0100, L503.6550, L501.2300, L503.6150, L500.4050, L509.1000 #### [facility] [address] [place], [address] IG% 0.200 Normal 0.0-0.9 [facility] Comment on above: Result Comment: IG% - Immature Granulocytes (promyelocytes, myelocytes and metamyelocytes) > 1% indicates that a LEFT SHIFT is Present. Performed By: #### L 502.0250, L503.0105, L506.1000, L100.0100, L503.6550, L501.2300, L503.6150, L500.4050, L509.1000 #### [facility] [address] [place], [address] Lymphocytes/100 WBC (Bld) 17.1 % Low 19-41 [facility] Comment on above: Performed By: #### L 502.0250, L503.0105, L506.1000, L100.0100, L503.6550, L501.2300, L503.6150, L500.4050, L509.1000 #### [facility] [address] [place], [address] MCH (RBC) [Entitic mass] 25.8 pg Low 27.0-32.0 [facility] Comment on above: Performed By: #### L 502.0250, L503.0105, L506.1000, L100.0100, L503.6550, L501.2300, L503.6150, L500.4050, L509.1000 #### [facility] [address] [place], [address] MCHC (RBC) [Mass/Vol] 30.1 g/dL Low 32-36 [facility] Comment on above: Performed By: #### L 502.0250, L503.0105, L506.1000, L100.0100, L503.6550, L501.2300, L503.6150, L500.4050, L509.1000 #### [facility] [address] [place], [address] MCV (RBC) [Entitic vol] 85.8 fL Normal 80-94 [facility] Comment on above: Performed By: #### L 502.0250, L503.0105, L506.1000, L100.0100, L503.6550, L501.2300, L503.6150, L500.4050, L509.1000 #### [facility] [address] [place], [address] Monocytes/100 WBC (Bld) 6.2 % Normal 0-10 [facility] Comment on above: Performed By: #### L 502.0250, L503.0105, L506.1000, L100.0100, L503.6550, L501.2300, L503.6150, L500.4050, L509.1000 #### [facility] [address] [place], [address] Neutrophils/100 WBC (Bld) 73.5 % High 47-70 [facility] Comment on above: Performed By: #### L 502.0250, L503.0105, L506.1000, L100.0100, L503.6550, L501.2300, L503.6150, L500.4050, L509.1000 #### [facility] [address] [place], [address] Nucleated RBC (Bld) [#/Vol] 0 10*3/uL Normal 0-5 [facility] Comment on above: Performed By: #### L 502.0250, L503.0105, L506.1000, L100.0100, L503.6550, L501.2300, L503.6150, L500.4050, L509.1000 #### [facility] [address] [place], [address] Platelet mean volume (Bld) [Entitic vol] 10.0 fL Normal 6.2-12.0 [facility] Comment on above: Performed By: #### L 502.0250, L503.0105, L506.1000, L100.0100, L503.6550, L501.2300, L503.6150, L500.4050, L509.1000 #### [facility] [address] [place], [address] Platelets (Bld) [#/Vol] 253 10*3/uL Normal 150-450 [facility] Comment on above: Performed By: #### L 502.0250, L503.0105, L506.1000, L100.0100, L503.6550, L501.2300, L503.6150, L500.4050, L509.1000 #### [facility] [address] [facility] [place], [address] RBC (Bld) [#/Vol] 4.65 10*6/uL Normal 4.6-6.2 [facility] Comment on above: Performed By: #### L 502.0250, L503.0105, L506.1000, L100.0100, L503.6550, L501.2300, L503.6150, L500.4050, L509.1000 #### [facility] [address] [facility] [place], [address] RDW SD 46.9 fl High 35.1-43.9 [facility] Comment on above: Performed By: #### L 502.0250, L503.0105, L506.1000, L100.0100, L503.6550, L501.2300, L503.6150, L500.4050, L509.1000 #### [facility] [address] [facility] [place], [address] WBC (Bld) [#/Vol] 10.3 10*3/uL Normal 4.4-11.0 [facility] Comment on above: Performed By: #### L 502.0250, L503.0105, L506.1000, L100.0100, L503.6550, L501.2300, L503.6150, L500.4050, L509.1000 #### [facility] [address] [place], [address] Comprehensive Metabolic Prof ilon 12-02-2023 Albumin [Mass/Vol] 3.2 g/dL Normal 3.2-5.0 [facility] Comment on above: Performed By: #### L 502.0250, L503.0105, L506.1000, L100.0100, L503.6550, L501.2300, L503.6150, L500.4050, L509.1000 #### [facility] [address] [place], [address] Albumin/Globulin [Mass ratio] 0.8 {ratio} Low 0.9-2.4 [facility] Comment on above: Performed By: #### L 502.0250, L503.0105, L506.1000, L100.0100, L503.6550, L501.2300, L503.6150, L500.4050, L509.1000 #### [facility] [address] [place], [address] ALK P 82 U/L Normal 45-117 [facility] Comment on above: Performed By: #### L 502.0250, L503.0105, L506.1000, L100.0100, L503.6550, L501.2300, L503.6150, L500.4050, L509.1000 #### [facility] [address] [place], [address] ALT [Catalytic activity/Vol] 17 U/L Normal 16-61 [facility] Comment on above: Performed By: #### L 502.0250, L503.0105, L506.1000, L100.0100, L503.6550, L501.2300, L503.6150, L500.4050, L509.1000 #### [facility] [address] [place], [address] AST [Catalytic activity/Vol] 17 U/L Normal 15-37 [facility] Comment on above: Performed By: #### L 502.0250, L503.0105, L506.1000, L100.0100, L503.6550, L501.2300, L503.6150, L500.4050, L509.1000 #### [facility] [address] [place], [address] Bilirubin [Mass/Vol] 0.50 mg/dL Normal 0.20-1.00 [facility] Comment on above: Result Comment: For patients on eltrombopag therapy, use of Dimension [place] TBIL is not recommended. Performed By: #### L 502.0250, L503.0105, L506.1000, L100.0100, L503.6550, L501.2300, L503.6150, L500.4050, L509.1000 #### [facility] [address] [place], [address] BUN/CRE 16.3 RATIO Normal 10-20 [facility] Comment on above: Performed By: #### L 502.0250, L503.0105, L506.1000, L100.0100, L503.6550, L501.2300, L503.6150, L500.4050, L509.1000 #### [facility] [address] [place], [address] CA,Total 9.2 mg/dL Normal 8.5-10.1 [facility] Comment on above: Performed By: #### L 502.0250, L503.0105, L506.1000, L100.0100, L503.6550, L501.2300, L503.6150, L500.4050, L509.1000 #### [facility] [address] [place], [address] Chloride [Moles/Vol] 105 mmol/L Normal 98-107 [facility] Comment on above: Performed By: #### L 502.0250, L503.0105, L506.1000, L100.0100, L503.6550, L501.2300, L503.6150, L500.4050, L509.1000 #### [facility] [address] [place], [address] CO2 [Moles/Vol] 26.0 mmol/L Normal 21.0-32.0 [facility] Comment on above: Performed By: #### L 502.0250, L503.0105, L506.1000, L100.0100, L503.6550, L501.2300, L503.6150, L500.4050, L509.1000 #### [facility] [address] [place], [address] Creatinine [Mass/Vol] 1.35 mg/dL High 0.70-1.30 [facility] Comment on above: Result Comment: The validity of the calculated GFR GFRAA in patients over 70 years has not been determined. Clinical correlation is essential. Performed By: #### L 502.0250, L503.0105, L506.1000, L100.0100, L503.6550, L501.2300, L503.6150, L500.4050, L509.1000 #### [facility] [address] [place], [address] EST GFR - AA 67 mL/min Normal >60 [facility] Comment on above: Result Comment: Afri can Citizen [place] GFR Calc Performed By: #### L 502.0250, L503.0105, L506.1000, L100.0100, L503.6550, L501.2300, L503.6150, L500.4050, L509.1000 #### [facility] [address] [place], [address] GAP 7 Normal 5-15 [facility] Comment on above: Performed By: #### L 502.0250, L503.0105, L506.1000, L100.0100, L503.6550, L501.2300, L503.6150, L500.4050, L509.1000 #### [facility] [address] [place], [address] GFR/1.73 sq M.predicted among non-blacks MDRD (S/P/Bld) [Vol rate/Area] 55 mL/min/{1.73_m2} Low >60 [facility] Comment on above: Result Comment: Non- GFR Calc Performed By: #### L 502.0250, L503.0105, L506.1000, L100.0100, L503.6550, L501.2300, L503.6150, L500.4050, L509.1000 #### [facility] [address] [place], [address] Globulin (S) [Mass/Vol] 4.2 g/dL Normal 2.2-4.2 [facility] Comment on above: Performed By: #### L 502.0250, L503.0105, L506.1000, L100.0100, L503.6550, L501.2300, L503.6150, L500.4050, L509.1000 #### [facility] [address] [place], [address] Glucose [Mass/Vol] 114 mg/dL High 74-106 [facility] Comment on above: Result Comment: Fast ing Glucose result from 100 to 125 mg/dL suggests IMPAIRED HOMEOSTASIS per A.D.A. criteria. Performed By: #### L 502.0250, L503.0105, L506.1000, L100.0100, L503.6550, L501.2300, L503.6150, L500.4050, L509.1000 #### [facility] [address] [place], [address] Potassium [Moles/Vol] 3.9 mmol/L Normal 3.5-5.1 [facility] Comment on above: Performed By: #### L 502.0250, L503.0105, L506.1000, L100.0100, L503.6550, L501.2300, L503.6150, L500.4050, L509.1000 #### [facility] [address] [place], [address] Sodium [Moles/Vol] 138 mmol/L Normal 136-145 [facility] Comment on above: Performed By: #### L 502.0250, L503.0105, L506.1000, L100.0100, L503.6550, L501.2300, L503.6150, L500.4050, L509.1000 #### [facility] [address] [place], [address] T PROT 7.4 g/dL Normal 6.4-8.2 [facility] Comment on above: Performed By: #### L 502.0250, L503.0105, L506.1000, L100.0100, L503.6550, L501.2300, L503.6150, L500.4050, L509.1000 #### [facility] [address] [place], [address] Urea nitrogen [Mass/Vol] 22 mg/dL High 7-18 [facility] Comment on above: Performed By: #### L 502.0250, L503.0105, L506.1000, L100.0100, L503.6550, L501.2300, L503.6150, L500.4050, L509.1000 #### [facility] [address] [place], [address] Ferritinon 12-02-2023 Ferritin [Mass/Vol] 119 ng/mL Normal 26-388 [facility] Comment on above: Performed By: #### L 502.0250, L503.0105, L506.1000, L100.0100, L503.6550, L501.2300, L503.6150, L500.4050, L509.1000 #### [facility] [address] [place], [place], [id number] (994) Ironon 12-02-2023 Iron [Mass/Vol] 37 ug/dL Low 65-175 [facility] Comment on above: Performed By: #### L 502.0250, L503.0105, L506.1000, L100.0100, L503.6550, L501.2300, L503.6150, L500.4050, L509.1000 #### [facility] [address] [place], [place], [id number] Microalb:Creat Ratio,Random URon 12-02-2023 Creatinine [Mass/Vol] 132.00 mg/dL Normal NO RANGE EST . [facility] Comment on above: Performed By: #### L 502.0250, L503.0105, L506.1000, L100.0100, L503.6550, L501.2300, L503.6150, L500.4050, L509.1000 #### [facility] [address] [place], [place], [id number] MALB:CRE 16.3 mg/g CRE Normal <30 mg/g CRE [facility] Comment on above: Performed By: #### L 502.0250, L503.0105, L506.1000, L100.0100, L503.6550, L501.2300, L503.6150, L500.4050, L509.1000 #### [facility] [address] [place], [place], [id number] MICROALBUMIN,UR 21.5 mg/L Normal NO RANGE EST. [facility] Comment on above: Performed By: #### L 502.0250, L503.0105, L506.1000, L100.0100, L503.6550, L501.2300, L503.6150, L500.4050, L509.1000 #### [facility] [address] [facility] [place], [address] PTHINon 12-02-2023 PTH 64.9 pg/mL Normal 18.4-80.1 [facility] Comment on above: Performed By: #### L 502.0250, L503.0105, L506.1000, L100.0100, L503.6550, L501.2300, L503.6150, L500.4050, L509.1000 #### [facility] [address] [facility] [place], [address] Phosphoruson 12-02-2023 Phosphate [Mass/Vol] 2.6 mg/dL Normal 2.5-4.9 [facility] Comment on above: Performed By: #### L 502.0250, L503.0105, L506.1000, L100.0100, L503.6550, L501.2300, L503.6150, L500.4050, L509.1000 #### [facility] [address] [facility] [place], [address] Vitamin B12on 12-02-2023 Cobalamin (Vitamin B12) [Mass/Vol] 1274 pg/mL High 211-911 [facility] Comment on above: Performed By: #### L 502.0250, L503.0105, L506.1000, L100.0100, L503.6550, L501.2300, L503.6150, L500.4050, L509.1000 #### [facility] [address] [facility] [place], [address] Vitamin D,25 Hydroxyon 12-01 Vitamin D 25-OH 46.1 ng/mL Normal [facility] Comment on above: Result Comment: Dali min D 25(OH) Status Range Deficiency <20 ng/mL (50nmol/L) Insufficiency 20 - 30 ng/mL (50 - 75 nmol/L) Sufficiency 30 - 100 ng/mL (75 - 250 nmol/L) Toxicity >100 ng/mL (>250 nmol/L) Performed By: #### L 502.0250, L503.0105, L506.1000, L100.0100, L503.6550, L501.2300, L503.6150, L500.4050, L509.1000 #### [facility] [address] [place], [address] Absolute lymphocyte countOrd ered By: Donta Prabhakar on 05-29-2023 Lymphocytes Auto (Unsp spec) [#/Vol] 1.53 10*3/uL 0.83-4.51 [facility] Automated lymphocyte count a s percentage of total leukocytesOrdered By: Donta Prabhakar on 05-29-2023 Lymphocytes/100 WBC Auto (Unsp spec) 14.1 % 19-41 [facility] Basophil percentageOrdered B y: Donta Prabhakar on 05-29-2023 Basophils/100 WBC (Bld) 0.6 % 0-1 [facility] Bilirubin [Mass/Vol] 0.50 mg/dL 0.20-1.00 [facility] Comment on above: For patients on eltr ombopag therapy, use of Dimension [place] TBIL is not recommended. Chloride [Moles/Vol] 106 mmol/L 98-107 [facility] Cholesterol [Mass/Vol] 190 mg/dL <200 [facility] Comment on above: <200 mg/dL Desirable 200-240 mg/dL Borderline >240 mg/dL High Risk Eosinophils/100 WBC (Bld) 0.7 % 0-5 [facility] Glucose [Mass/Vol] 107 mg/dL 74-106 [facility] Comment on above: Fasting Glucose resu lt from 100 to 125 mg/dL suggests IMPAIRED HOMEOSTASIS per A.D.A. criteria. Hemoglobin (Bld) [Mass/Vol] 11.2 g/dL 13.0-16.5 [facility] Monocytes/100 WBC (Bld) 6.1 % 0-10 [facility] Neutrophils (Bld) [#/Vol] 8.5 10*3/uL 2.0-7.7 [facility] Neutrophils/100 WBC (Bld) 78.3 % 47-70 [facility] Potassium [Moles/Vol] 3.8 mmol/L 3.5-5.1 [facility] Protein [Mass/Vol] 7.3 g/dL 6.4-8.2 [facility] Sodium [Moles/Vol] 138 mmol/L 136-145 [facility] Triglyceride [Mass/Vol] 70 mg/dL <199 [facility] Comment on above: The drugs N-Acetylcy steine and Metamizole may falsely depress this assay.Serum Triglycerides Reference Interval Normal <150 mg/dL Borderline high 150 - 199 mg/dL High 200 - 499 mg/dL Very High > or = 500 mg/dL WBC (Bld) [#/Vol] 10.9 10*3/uL 4.4-11.0 [facility] Determination of erythrocyte mean corpuscular volume (MCV)Ordered By: Donta Prabhakar on 05-29-2023 MCV (RBC) [Entitic vol] 85.4 fL 80-94 [facility] Erythrocyte distribution wid th ratioOrdered By: Donta Prabhakar on 05-29-2023 Erythrocyte distribution width (RBC) [Ratio] 14.8 % 11.6-14.6 [facility] Erythrocyte distribution wid th standard deviationOrdered By: Donta Prabhakar on 05-29-2023 Erythrocyte distribution width (RBC) [Entitic vol] 46.4 fL 35.1-43.9 [facility] Hematocrit Auto (Bld) [Volum e fraction]Ordered By: Donta Prabhakar on 05-29-2023 Hematocrit (Bld) [Volume fraction] 37.3 % 40-54 [facility] Immature granulocytes/100 WB C Auto (Bld)Ordered By: Donta Prabhakar on 05-29-2023 Immature granulocytes/100 WBC (Bld) 0.200 % 0.0-0.9 [facility] Comment on above: IG% - Immature Granu locytes (promyelocytes, myelocytes and metamyelocytes) > 1% indicates that a LEFT SHIFT is Present. Laboratory - Chemistry and C hemistry - challengeOrdered By: Donta Prabhakar on 05-29-2023 Albumin/Globulin [Mass ratio] 0.7 {ratio} 0.9-2.4 [facility] ALP [Catalytic activity/Vol] 117 U/L 45-117 [facility] ALT [Catalytic activity/Vol] 22 U/L 16-61 [facility] Cholesterol in HDL [Mass/Vol] 45 mg/dL >40 [facility] Comment on above: The drugs N-Acetylcy steine and Metamizole may falsely depress this assay. Reference Range HDL <40 mg/dL Low HDL Cholesterol HDL >or= 60 mg/dL High HDL Cholesterol Cholesterol in LDL [Mass/Vol] 131 mg/dL 0-130 [facility] CO2 [Moles/Vol] 25.0 mmol/L 21.0-32.0 [facility] Globulin (S) [Mass/Vol] 4.2 g/dL 2.2-4.2 [facility] Urea nitrogen/Creatinine [Mass ratio] 12.6 mg/mg 10-20 [facility] - Hematology and Cell countsOrdered By: Donta Prabhakar on 05-29-2023 MCH (RBC) [Entitic mass] 25.6 pg 27.0-32.0 [facility] MCHC (RBC) [Mass/Vol] 30.0 g/dL 32-36 [facility] Nucleated RBC/100 WBC (Bld) [Ratio] 0 % 0-5 [facility] Platelet mean volume (Bld) [Entitic vol] 10.2 fL 6.2-12.0 [facility] Platelets (Bld) [#/Vol] 251 10*3/uL 150-450 [facility] No Panel InformationOrdered By: Donta Prabhakar on 05-29-2023 Estimated GFR (MDRD) Amer 59 mL/min >60 [facility] Comment on above: GFR Calc Estimated GFR (MDRD) Non-Af Amer 48 mL/min >60 [facility] Comment on above: Non- GFR Calc Prostate Specific Antigen Screen 2.07 ng/mL 0.00-4.00 [facility] Comment on above: This test was perfor med using the TPSA assay method for Ininal chemistry system. Values obtained with differentassay methods cannot be used interchangably.When changing PSA assays in the course of monitoring apatient, additional sequential testing should be carriedout to confirm baseline values. VLDL Cholesterol 14 mg/dL 5-40 [facility] RBC Auto (Bld) [#/Vol]Ordere d By: Donta Prabhakar on 05-29-2023 RBC (Bld) [#/Vol] 4.37 10*6/uL 4.6-6.2 [facility] Serum or plasma calcium red urement (mass/volume)Ordered By: Donta Prabhakar on 05-29-2023 Calcium [Mass/Vol] 9.3 mg/dL 8.5-10.1 [facility] Serum or plasma creatinine m easurement (mass/volume)Ordered By: Donta Prabhakar on 05-29-2023 Creatinine [Mass/Vol] 1.51 mg/dL 0.70-1.30 [facility] Comment on above: The validity of the calculated GFR & GFRAA in patients over 70 years has not been determined. Clinical correlation is essential. Serum or plasma urea nitroge n measurement (mass/volume)Ordered By: Donta Prabhakar on 05-29-2023 Urea nitrogen [Mass/Vol] 19 mg/dL 7-18 [facility] Thin prep Papanicolaou smear with manual screeningOrdered By: Donta Prabhakar on 05-29-2023 Thin prep Papanicolaou smear with manual screening 3.1 g/dL 3.2-5.0 [facility] Thin prep Papanicolaou smear with manual screening 16 U/L 15-37 [facility] Thin prep Papanicolaou smear with manual screening 7 5-15 [facility] Basophil percentageOrdered B y: Dr. Aquino on 10-03-2022 Basophil percentage 2.4 mg/dL 2.5-4.9 [facility] Chloride [Moles/Vol] 108 mmol/L 98-107 [facility] Glucose [Mass/Vol] 113 mg/dL 74-106 [facility] Comment on above: Fasting Glucose resu lt from 100 to 125 mg/dL suggests IMPAIRED HOMEOSTASIS per A.D.A. criteria. Potassium [Moles/Vol] 3.8 mmol/L 3.5-5.1 [facility] Sodium [Moles/Vol] 140 mmol/L 136-145 [facility] WBC (Bld) [#/Vol] 12.4 10*3/uL 4.4-11.0 [facility] Blood erythrocytes count (nu mber/volume)Ordered By: Dr. Aquino on 10-03-2022 RBC (Bld) [#/Vol] 4.29 10*6/uL 4.6-6.2 [facility] Blood hemoglobin measurement (mass/volume)Ordered By: Dr. Aquino on 10-03-2022 Hemoglobin (Bld) [Mass/Vol] 11.0 g/dL 13.0-16.5 [facility] Blood platelet mean volumeOr dered By: Dr. Aquino on 10-03-2022 Platelet mean volume (Bld) [Entitic vol] 10.3 fL 6.2-12.0 [facility] Determination of erythrocyte mean corpuscular volume (MCV)Ordered By: Dr. Aquino on 10-03-2022 MCV (RBC) [Entitic vol] 86.7 fL 80-94 [facility] Hematocrit Auto (Bld) [Volum e fraction]Ordered By: Dr. Aquino on 10-03-2022 Hematocrit (Bld) [Volume fraction] 37.2 % 40-54 [facility] - Chemistry and C hemistry - challengeOrdered By: Dr. Aquino on 10-03-2022 CO2 [Moles/Vol] 27.0 mmol/L 21.0-32.0 [facility] Urea nitrogen/Creatinine [Mass ratio] 16.4 mg/mg 10-20 [facility] - Hematology and Cell countsOrdered By: Dr. Aquino on 10-03-2022 Erythrocyte distribution width (RBC) [Entitic vol] 44.4 fL 35.1-43.9 [facility] Erythrocyte distribution width (RBC) [Ratio] 14.0 % 11.6-14.6 [facility] MCH (RBC) [Entitic mass] 25.6 pg 27.0-32.0 [facility] MCHC Auto (RBC) [Mass/Vol]Or dered By: Dr. Aquino on 10-03-2022 MCHC (RBC) [Mass/Vol] 29.6 g/dL 32-36 [facility] No Panel InformationOrdered By: Dr. Aquino on 10-03-2022 Estimated GFR (MDRD) Amer 75 mL/min >60 [facility] Comment on above: GFR Calc Estimated GFR (MDRD) Non-Af Amer 62 mL/min >60 [facility] Comment on above: Non- GFR Calc Parathyroid Hormone (Intact) 76.5 pg/mL 18.4-80.1 [facility] Platelets bldOrdered By: Dr. Aquino on 10-03-2022 Platelets (Bld) [#/Vol] 276 10*3/uL 150-450 [facility] Serum or plasma albumin red urement (mass/volume)Ordered By: Dr. Aquino on 10-03-2022 Albumin [Mass/Vol] 3.0 g/dL 3.2-5.0 [facility] Serum or plasma calcium red urement (mass/volume)Ordered By: Dr. Aquino on 10-03-2022 Calcium [Mass/Vol] 9.0 mg/dL 8.5-10.1 [facility] Serum or plasma creatinine m easurement (mass/volume)Ordered By: Dr. Aquino on 10-03-2022 Creatinine [Mass/Vol] 1.22 mg/dL 0.70-1.30 [facility] Comment on above: The validity of the calculated GFR & GFRAA in patients over 70 years has not been determined. Clinical correlation is essential. Serum or plasma urea nitroge n measurement (mass/volume)Ordered By: Dr. Aquino on 10-03-2022 Urea nitrogen [Mass/Vol] 20 mg/dL 7-18 [facility] No Panel InformationOrdered By: Dr. Prabhakar on 06-08-2022 Serum Immunofixation Comment . [facility] Comment on above: No monoclonality det ected. Serum or plasma IgA measurem ent (mass/volume)Ordered By: Dr. Prabhakar on 06-08-2022 IgA [Mass/Vol] 43 mg/dL 61-437 [facility] Comment on above: Result confirmed on concentration. Serum or plasma IgG measurem ent (mass/volume)Ordered By: Dr. Prabhakar on 06-08-2022 IgG [Mass/Vol] 896 mg/dL 603-1613 [facility] Serum or plasma IgM measurem ent (mass/volume)Ordered By: Dr. Prabhakar on 06-08-2022 IgM [Mass/Vol] 396 mg/dL 15-143 [facility] Comment on above: Performed at: [facility] [address] [id number] Director: Johnny Green PhD, Phone: [phone] 24 hour urine alpha 2 globul in/total protein ratio by electrophoresis (mass fraction)Ordered By: Dr. Prabhakar on 06-05-2022 Alpha 2 globulin Elph (24H U) [Mass fraction] 28.8 % . [facility] 24 hour urine beta globulin/ total protein ratio by electrophoresis (mass fraction)Ordered By: Dr. rPabhakar on 06-05-2022 Beta globulin Elph (24H U) [Mass fraction] 23.0 % . [facility] 24 hour urine gamma globulin /total protein ratio by electrophoresis (mass fraction)Ordered By: Dr. Prabhakar on 06-05-2022 Gamma globulin Elph (24H U) [Mass fraction] 23.2 % . [facility] Basophil percentageOrdered B y: Dr. Prabhakar on 06-05-2022 Basophil percentage Comment . [facility] Comment on above: No monoclonality det ected.Performed at: [facility] [address] [id number] Director: Johnny Green PhD, Phone: [phone] LDH [Catalytic activity/Vol] 188 U/L 87-241 [facility] Iron measurement (mass/mass) Ordered By: Dr. Prabhakar on 06-05-2022 Iron (Unsp spec) [Mass/Mass] 26 ug/dL 65-175 [facility] - Chemistry and C hemistry - challengeOrdered By: Dr. Prabhakar on 06-05-2022 Albumin [Mass/Vol] 3.5 g/dL 2.9-4.4 [facility] Cobalamin (Vitamin B12) [Mass/Vol] 258 pg/mL 211-911 [facility] No Panel InformationOrdered By: Dr. Prabhakar on 06-05-2022 Addendum Document Comment . [facility] Comment on above: The SPE pattern appe ars unremarkable. Evidence ofmonoclonal protein is not apparent. [id number] 0.3 g/dL 0.0-0.4 [facility] [facility] [id number] 0.8 g/dL 0.4-1.0 [facility] Gamma Globulins 1.0 g/dL 0.4-1.8 [facility] Urine Immunofixation PEP Note Comment . [facility] Comment on above: Protein electrophore sis scan will follow via computer,mail, or health outcomes liaison delivery. Protein Fractions Elph [Inte rp]Ordered By: Dr. Prabhakar on 06-05-2022 Protein Fractions [Interp] Comment . [facility] Comment on above: Protein electrophore sis scan will follow via computer,mail, or health outcomes liaison delivery. Serum albumin to globulin ra krista by protein electrophoresisOrdered By: Dr. Prabhakar on 06-05-2022 Albumin/Globulin Elph [Mass ratio] 1.2 0.7-1.7 [facility] Serum globulin measurement ( mass/volume)Ordered By: Dr. Prabhakar on 06-05-2022 Globulin (S) [Mass/Vol] 3.0 g/dL 2.2-3.9 [facility] Serum or plasma beta globuli n measurement by electrophoresis (mass/volume)Ordered By: Dr. Prabhakar on 06-05-2022 Beta globulin Elph [Mass/Vol] 0.9 g/dL 0.7-1.3 [facility] Serum or plasma ferritin matt surement (mass/volume)Ordered By: Dr. Prabhakar on 06-05-2022 Ferritin [Mass/Vol] 158 ng/mL 26-388 [facility] Thin prep Papanicolaou smear with manual screeningOrdered By: Dr. Prabhakar on 06-05-2022 Thin prep Papanicolaou smear with manual screening See comment [facility] Comment on above: NOT OBSERVED Total protein bloodOrdered B y: Dr. Prabhakar on 06-05-2022 Protein [Mass/Vol] 6.5 g/dL 6.0-8.5 [facility] Urine albumin/total protein mass ratio by electrophoresisOrdered By: Dr. Prabhakar on 06-05-2022 Albumin Elph (U) [Mass fraction] 21.1 % . [facility] Urine alpha 1 globulin/total protein ratio by electrophoresis (mass fraction)Ordered By: Dr. Prabhakar on 06-05-2022 Alpha 1 globulin Elph (U) [Mass fraction] 3.8 % . [facility] Urine monoclonal protein/tot al protein mass ratio by electrophoresisOrdered By: Dr. Prabhakar on 06-05-2022 Protein.monoclonal Elph (U) [Mass fraction] See comment [facility] Comment on above: NOT OBSERVED Urine protein measurement (m ass/volume)Ordered By: Dr. Prabhakar on 06-05-2022 Protein (U) [Mass/Vol] 13.6 mg/dL Not Estab. [facility] Absolute lymphocyte countOrd ered By: Dr. Prabhakar on 05-23-2022 Lymphocytes Auto (Unsp spec) [#/Vol] 1.88 10*3/uL 0.83-4.51 [facility] Basophil percentageOrdered B y: Dr. Prabhakar on 05-23-2022 Basophils/100 WBC (Bld) 0.8 % 0-1 [facility] Bilirubin [Mass/Vol] 0.60 mg/dL 0.20-1.00 [facility] Comment on above: For patients on eltr ombopag therapy, use of Dimension [place] TBIL is not recommended. Chloride [Moles/Vol] 106 mmol/L 98-107 [facility] Cholesterol [Mass/Vol] 194 mg/dL <200 [facility] Comment on above: <200 mg/dL Desirable 200-240 mg/dL Borderline >240 mg/dL High Risk Eosinophils/100 WBC (Bld) 1.0 % 0-5 [facility] Glucose [Mass/Vol] 123 mg/dL 74-106 [facility] Comment on above: Fasting Glucose resu lt from 100 to 125 mg/dL suggests IMPAIRED HOMEOSTASIS per A.D.A. criteria. Neutrophils (Bld) [#/Vol] 7.2 10*3/uL 2.0-7.7 [facility] Neutrophils/100 WBC (Bld) 71.8 % 47-70 [facility] Potassium [Moles/Vol] 3.8 mmol/L 3.5-5.1 [facility] Protein [Mass/Vol] 7.3 g/dL 6.4-8.2 [facility] Sodium [Moles/Vol] 141 mmol/L 136-145 [facility] Triglyceride [Mass/Vol] 72 mg/dL <199 [facility] Comment on above: The drugs N-Acetylcy steine and Metamizole may falsely depress this assay.Serum Triglycerides Reference Interval Normal <150 mg/dL Borderline high 150 - 199 mg/dL High 200 - 499 mg/dL Very High > or = 500 mg/dL WBC (Bld) [#/Vol] 10.0 10*3/uL 4.4-11.0 [facility] Bilirubin Test strip Ql (U)O rdered By: Dr. Prabhakar on 05-23-2022 Bilirubin Ql (U) Negative Negative [facility] Blood erythrocytes count (nu mber/volume)Ordered By: Dr. Prabhakar on 05-23-2022 RBC (Bld) [#/Vol] 4.51 10*6/uL 4.6-6.2 [facility] Blood hemoglobin measurement (mass/volume)Ordered By: Dr. Prabhakar on 05-23-2022 Hemoglobin (Bld) [Mass/Vol] 12.5 g/dL 13.0-16.5 [facility] Blood lymphocytes/100 leukoc ytesOrdered By: Dr. Prabhakar on 05-23-2022 Lymphocytes/100 WBC (Bld) 18.8 % 19-41 [facility] Blood monocytes/100 leukocyt esOrdered By: Dr. Prabhakar on 05-23-2022 Monocytes/100 WBC (Bld) 7.4 % 0-10 [facility] Blood platelet mean volumeOr dered By: Dr. Prabhakar on 05-23-2022 Platelet mean volume (Bld) [Entitic vol] 11.0 fL 6.2-12.0 [facility] Determination of erythrocyte mean corpuscular volume (MCV)Ordered By: Dr. Prabhakar on 05-23-2022 MCV (RBC) [Entitic vol] 88.7 fL 80-94 [facility] Hematocrit Auto (Bld) [Volum e fraction]Ordered By: Dr. Prabhakar on 05-23-2022 Hematocrit (Bld) [Volume fraction] 40.0 % 40-54 [facility] Ketones Test strip Ql (U)Ord ered By: Dr. Prabhakar on 05-23-2022 Ketones Ql (U) 5 mg/dl Negative [facility] Laboratory - Chemistry and C hemistry - challengeOrdered By: Dr. Prabhakar on 05-23-2022 ALP [Catalytic activity/Vol] 104 U/L 45-117 [facility] ALT [Catalytic activity/Vol] 19 U/L 16-61 [facility] CO2 [Moles/Vol] 29.0 mmol/L 21.0-32.0 [facility] Globulin (S) [Mass/Vol] 3.9 g/dL 2.2-4.2 [facility] Urea nitrogen/Creatinine [Mass ratio] 16.5 mg/mg 10-20 [facility] Laboratory - Hematology and Cell countsOrdered By: Dr. Prabhakar on 05-23-2022 Erythrocyte distribution width (RBC) [Entitic vol] 44.1 fL 35.1-43.9 [facility] Erythrocyte distribution width (RBC) [Ratio] 13.5 % 11.6-14.6 [facility] Immature granulocytes/100 WBC (Bld) 0.200 % 0.0-0.9 [facility] Comment on above: IG% - Immature Granu locytes (promyelocytes, myelocytes and metamyelocytes) > 1% indicates that a LEFT SHIFT is Present. MCH (RBC) [Entitic mass] 27.7 pg 27.0-32.0 [facility] Nucleated RBC/100 WBC (Bld) [Ratio] 0 % 0-5 [facility] MCHC Auto (RBC) [Mass/Vol]Or dered By: Dr. Prabhakar on 05-23-2022 MCHC (RBC) [Mass/Vol] 31.3 g/dL 32-36 [facility] Nitrite Test strip Ql (U)Ord ered By: Dr. Prabhakar on 05-23-2022 Nitrite Ql (U) Negative Negative [facility] No Panel InformationOrdered By: Dr. Prabhakar on 05-23-2022 Estimated GFR (MDRD) Amer 65 mL/min >60 [facility] Comment on above: GFR Calc Estimated GFR (MDRD) Non-Af Amer 53 mL/min >60 [facility] Comment on above: Non- GFR Calc Prostate Specific Antigen Screen 2.63 ng/mL 0.00-4.00 [facility] Comment on above: This test was perfor med using the TPSA assay method for the[employer] chemistry system. Values obtained with differentassay methods cannot be used interchangably.When changing PSA assays in the course of monitoring apatient, additional sequential testing should be carriedout to confirm baseline values. Platelets bldOrdered By: Dr. Prabhakar on 05-23-2022 Platelets (Bld) [#/Vol] 235 10*3/uL 150-450 [facility] Protein Test strip Ql (U)Ord ered By: Dr. Prabhakar on 05-23-2022 Protein Ql (U) 15 mg/dl Negative [facility] Serum or plasma albumin red urement (mass/volume)Ordered By: Dr. Prabhakar on 05-23-2022 Albumin [Mass/Vol] 3.4 g/dL 3.2-5.0 [facility] Serum or plasma albumin/glob ulin mass ratioOrdered By: Dr. Prabhakar on 05-23-2022 Albumin/Globulin [Mass ratio] 0.9 {ratio} 0.9-2.4 [facility] Serum or plasma calcium red urement (mass/volume)Ordered By: Dr. Prabhakar on 05-23-2022 Calcium [Mass/Vol] 9.0 mg/dL 8.5-10.1 [facility] Serum or plasma cholesterol in HDL measurement (mass/volume)Ordered By: Dr. Prabhakar on 05-23-2022 Cholesterol in HDL [Mass/Vol] 46 mg/dL >40 [facility] Comment on above: The drugs N-Acetylcy steine and Metamizole may falsely depress this assay. Reference Range HDL <40 mg/dL Low HDL Cholesterol HDL >or= 60 mg/dL High HDL Cholesterol Serum or plasma cholesterol in VLDL measurement (mass/volume)Ordered By: Dr. Prabhakar on 05-23-2022 Cholesterol in VLDL [Mass/Vol] 14 mg/dL 5-40 [facility] Serum or plasma creatinine m easurement (mass/volume)Ordered By: Dr. Prabhakar on 05-23-2022 Creatinine [Mass/Vol] 1.39 mg/dL 0.70-1.30 [facility] Comment on above: The validity of the calculated GFR & GFRAA in patients over 70 years has not been determined. Clinical correlation is essential. Serum or plasma low density lipoprotein (LDL) cholesterol measurement (mass/volume)Ordered By: Dr. Prabhakar on 05-23-2022 Cholesterol in LDL [Mass/Vol] 134 mg/dL 0-130 [facility] Serum or plasma urea nitroge n measurement (mass/volume)Ordered By: Dr. Prabhakar on 05-23-2022 Urea nitrogen [Mass/Vol] 23 mg/dL 7-18 [facility] Thin prep Papanicolaou smear with manual screeningOrdered By: Dr. Prabhakar on 05-23-2022 Thin prep Papanicolaou smear with manual screening 16 U/L 15-37 [facility] Thin prep Papanicolaou smear with manual screening 6 5-15 [facility] Urine blood detectionOrdered By: Dr. Prabhakar on 05-23-2022 RBC Ql (U) 10 /ul Negative [facility] Urine clarityOrdered By: Dr. Prabhakar on 05-23-2022 Clarity (U) Clear Clear [facility] Urine color determinationOrd ered By: Dr. Prabhakar on 05-23-2022 Color (U) Yellow Yellow [facility] Urine glucose detectionOrder ed By: Dr. Prabhakar on 05-23-2022 Glucose Ql (U) Normal mg/dl Normal [facility] Urine leukocyte esterase det ection by dipstickOrdered By: Dr. Prabhakar on 05-23-2022 Leukocyte esterase Test strip Ql (U) Negative Negative [facility] Urine pHOrdered By: Dr. Erika guillen on 05-23-2022 pH (U) 5.0 [pH] 5.0 - 8.0 [facility] Urine specific gravity measu rementOrdered By: Dr. Prabhakar on 05-23-2022 Specific gravity (U) [Rel density] 1.020 1.002-1.030 [facility] Urobilinogen Auto test strip Ql (U)Ordered By: Dr. Prabhakar on 05-23-2022 Urobilinogen Ql (U) Normal mg/dl Normal [facility] Whole blood hemoglobin A1c/t otal hemoglobin ratio (mass fraction)Ordered By: Dr. Prabhakar on 05-23-2022 HbA1c (Bld) [Mass fraction] 6.1 % 3.8-5.6 [facility] Comment on above: Normal < 5.7 % Predi abetic 5.7 - 6.4 % Diabetic >or= 6.5 % Please note range changes. CNCOon 03-31-[address] [facility] [address] [facility] Encounters Encounter Date Encounter Type Care Provider Facility Start: 11-30-2024 ambulatory [facility] Facility: [facility] Start: 11-29-2024 ambulatory [facility] Facility: [facility] Start: 06-09-2024 End: 06-09-2024 ambulatory [facility] Facility:[facility] Start: 06-01-2024 End: 06-01-2024 ambulatory [facility] Facility:[facility] Start: 12-02-2023 End: 12-02-2023 ambulatory [facility] Facility:[facility] Start: 10-07-2023 ambulatory [facility] Facility: [facility] Start: 07-04-2023 End: 07-04-2023 ambulatory [facility] Work Phone: Start: 07-04-2023 End: 07-04-2023 Patient encounter procedure [facility] Work Phone: Start: 07-04-2023 End: 07-04-2023 ambulatory [facility] Facility:[facility] Start: 05-29-2023 End: 05-29-2023 ambulatory [facility] Work Phone: Start: 05-29-2023 End: 05-29-2023 Patient encounter procedure [facility] [place] Work Phone: Start: 10-03-2022 End: 10-03-2022 ambulatory [facility] Work Phone: Start: 10-03-2022 End: 10-03-2022 Patient encounter procedure [facility], [facility] Start: 08-30-2022 End: 08-30-2022 Patient encounter procedure [facility] Start: 06-08-2022 End: 06-08-2022 ambulatory [facility] Work Phone: Start: 06-08-2022 End: 06-08-2022 Patient encounter procedure [facility] Start: 06-05-2022 End: 06-05-2022 ambulatory [facility] Work Phone: Start: 06-05-2022 End: 06-05-2022 [facility] Start: 05-23-2022 End: 05-23-2022 Patient encounter procedure [facility] [place] Jose [facility] Start: 04-09-2022 End: 04-09-2022 ambulatory [facility] Work Phone: Start: 04-09-2022 End: 04-09-2022 Discharged Recurring [facility] Procedures Date Procedure Procedure Detail Performing Clinician Start: 08-30-2022 US urinary tract Plan of Treatment Date Care Activity Detail Author Start: 06-05-2022 Serum immunofixation [facility] Start: 06-05-2022 Urine protein electrophoresis [facility] IgA [Mass/volume] in Serum or Plasma [facility] IgG [Mass/volume] in Serum or Plasma [facility] IgM [Mass/volume] in Serum or Plasma [facility] Immunizations Immunization Date Immunization Notes Care Provider Fa cility 07-06-2020 Covid (Moderna) [facility] 06-08-2020 Covid ([facility]) [facility] Payers Date Payer Category Payer Medicare [id number] 300 [id number] 2022 Self-pay [id number] 2022 Unknown [id number] Unknown [id number] 2.16.8 [id number] Unknown [id number] 2.16.8 [id number] Unknown [id number] 2.16.8 [id number] Unknown [id number] 2.16.8 [id number] Unknown [id number] 2.16.8 [id number] Unknown [id number] 2.16.8 [id number] Unknown [id number] 2.16.8 [id number] Unknown [id number] 2.16.8 [id number] Social History Date Type Detail Facility Start: 01-22-2020 End: 01-22-2020 Tobacco smoking status MIIS Unknown if ever smoked [facility] Start: 1950 Sex Assigned At Male [facility] Evaluation note Note Date & Type Note Facility Evaluation note No assessment information availa ble [facility] Work Phone: Summary Purpose Family History No Family History Records FoundNo Family History Records Found Advance Directives No Advanced Directives Records Found Advance Directive Response Recorded Date/ Time Living Will Yes January 21 0 11:58am Power of Lens Engraver Yes January 21 11:58am Advance Directive Response Recorded Date/ Time Living Will Yes January 21 0 12:58pm Power of Lens Engraver Yes January 21 12:58pm Chief Complaint and Reason for Visit Chief Complaint BALANCE/RX HERE Chief Complaint CKD3 Chief Complaint Sleep apnea, unspeci fied Additional Source Comments (unrecognized sect ion and content) No Status Records FoundNo Status Records Found INFORMATION SOURCE (unrecogn ized section and content) DATE CREATED AUTHOR 04/01/2019 [facility] DATE CREATED AUTHOR AUTHOR'S ABDULAZIZ ATDEANNA 06/26/[facility] Goals (unrecognized section and content) Goals may be documented in a n alternate sectionGoals may be documented in an alternate sectionGoals may be documented in an alternate sectionGoals may be documented in an alternate sectionGoals may be documented in an alternate sectionGoals may be documented in an alternate section Care Teams (unrecognized sec tion and content) Team Status: Active Member Role Status Dates Dr. Donta Prabhakar , DO Family Provider Active Dr. Donta Prabhakar , DO Primary Care Provider Active Team Status: Inactive Member Role Status Dates Dr. Donta Prabhakar , DO Primary Care Prov ider, Attending Provider, Referring Provider Active Team Status: Inactive Member Role Status Dates Dr. Donta Prabhakar , DO Primary Care Provider, Attendin g Provider Active Team Status: Active Member Role Status Dates Dr. Donta Prabhakar DO Primary Care Provider, Attendin g Provider Active Team Status: Inactive Member Role Status Dates Dr. Donta Prabhakar , Primary Care Provider Active Dr. Rosa Maria Aquino , DO Attending Provider, Referring P miguelina Active FOR RECORDS PERTAINING TO PATIENTS WHO ARE OR HAVE BEEN ENROLLED IN A CHEMICAL DEPENDENCY/SUBSTANCEABUSE PROGRAM, SOME INFORMATION MAY BE OMITTED. This clinical summary was aggregated from multiple sources. Caution should be exercised in using it in the provision of clinical care. This summary normalizes information from multiple sources, and as a consequence, information in this document may materially change the coding, format and clinical context of patient data. In addition, data may be omitted in some cases. CLINICAL DECISIONS SHOULD BE BASED ON THE PRIMARY CLINICAL RECORDS. [facility]. provides no warranty or guarantee of the accuracy or completeness of information in this document.
--- OUTSIDE RECORDS SUMMARY | 2024-11-30 18:45 | XMS RPT_ITS | CCD ---
Author Organization [facility] Care Team Providers Care [place] Name Role Phone Donta Prabhakar Attending Unavailable [...] Prabhakar Referring Unavailable Donta Prabhakar Attending Unavailable oDnta Prabhakar Referring Unavailable Donta Prabhakar Primary Care [...] 2.38 ng/mL Normal 0.00-4.00 [facility] Comment on above: Result Comment: This test was performed using the TPSA assay method for the [employer] chemistry system. Values obtained with different assay methods cannot be used interchangably. When changing PSA assays in the course of monitoring a patient, additional sequential testing should be carried out to confirm baseline values. Performed By: #### L 501.9910 #### [facility] [address] [place], [address] CBC W/Diff, Automatedon 05-23 Absolute Lymph 1.81 X10 3/uL Normal 0.83-4.51 [facility] Comment on above: Performed By: #### L 502.0250, L503.0105, L506.1000, L100.0100, L503.6550, L501.2300, L503.6150, L500.4050, L509.1000 #### [facility] [address] [place], [address] Absolute Neut 7.6 X10 3/uL Normal 2.0-7.7 [facility] Comment on above: Performed By: #### L 502.0250, L503.0105, L506.1000, L100.0100, L503.6550, L501.2300, L503.6150, L500.4050, L509.1000 #### [facility] [address] [place], [address] Basophils/100 WBC (Bld) 0.7 % Normal 0-[address] [facility] Comment on above: Performed By: #### L 502.0250, L503.0105, L506.1000, L100.0100, L503.6550, L501.2300, L503.6150, L500.4050, L509.1000 #### [facility] [address] [place], [address] Eosinophils/100 WBC (Bld) 1.2 % Normal 0-5 [facility] Comment on above: Performed By: #### L 502.0250, L503.0105, L506.1000, L100.0100, L503.6550, L501.2300, L503.6150, L500.4050, L509.1000 #### [facility] [address] [facility] [place], [address] Erythrocyte distribution width (RBC) [Ratio] 15.0 % High 11.6-14.6 [facility] Comment on above: Performed By: #### L 502.0250, L503.0105, L506.1000, L100.0100, L503.6550, L501.2300, L503.6150, L500.4050, L509.1000 #### [facility] [address] [facility] [place], [address] Hematocrit (Bld) [Volume fraction] 38.5 % Low 40-54 [facility] Comment on above: Performed By: #### L 502.0250, L503.0105, L506.1000, L100.0100, L503.6550, L501.2300, L503.6150, L500.4050, L509.1000 #### [facility] [address] [place], [address] Hemoglobin (Bld) [Mass/Vol] 11.3 g/dL Low 13.0-16.5 [facility] Comment on above: Performed By: #### L 502.0250, L503.0105, L506.1000, L100.0100, L503.6550, L501.2300, L503.6150, L500.4050, L509.1000 #### [facility] [address] [place], [address] IG% 0.200 Normal 0.0-0.9 [facility] Comment on above: Result Comment: IG% - Immature Granulocytes (promyelocytes, myelocytes and metamyelocytes) > 1% indicates that a LEFT SHIFT is Present. Performed By: #### L 502.0250, L503.0105, L506.1000, L100.0100, L503.6550, L501.2300, L503.6150, L500.4050, L509.1000 #### [facility] [address] [facility] [place], [address] Lymphocytes/100 WBC (Bld) 17.4 % Low 19-41 [facility] Comment on above: Performed By: #### L 502.0250, L503.0105, L506.1000, L100.0100, L503.6550, L501.2300, L503.6150, L500.4050, L509.1000 #### [facility] [address] [facility] [place], [address] MCH (RBC) [Entitic mass] 23.4 pg Low 27.0-32.0 [facility] Comment on above: Performed By: #### L 502.0250, L503.0105, L506.1000, L100.0100, L503.6550, L501.2300, L503.6150, L500.4050, L509.1000 #### [facility] [address] [place], [address] MCHC (RBC) [Mass/Vol] 29.4 g/dL Low 32-36 [facility] Comment on above: Performed By: #### L 502.0250, L503.0105, L506.1000, L100.0100, L503.6550, L501.2300, L503.6150, L500.4050, L509.1000 #### [facility] [address] [place], [address] MCV (RBC) [Entitic vol] 79.9 fL Low 80-[address] [facility] Comment on above: Performed By: #### L 502.0250, L503.0105, L506.1000, L100.0100, L503.6550, L501.2300, L503.6150, L500.4050, L509.1000 #### [facility] [address] [place], [address] Monocytes/100 WBC (Bld) 7.3 % Normal 0-10 [facility] Comment on above: Performed By: #### L 502.0250, L503.0105, L506.1000, L100.0100, L503.6550, L501.2300, L503.6150, L500.4050, L509.1000 #### [facility] [address] [place], [address] Neutrophils/100 WBC (Bld) 73.2 % High 47-70 [facility] Comment on above: Performed By: #### L 502.0250, L503.0105, L506.1000, L100.0100, L503.6550, L501.2300, L503.6150, L500.4050, L509.1000 #### [facility] [address] [place], [address] Nucleated RBC (Bld) [#/Vol] 0 10*3/uL Normal 0-5 [facility] Comment on above: Performed By: #### L 502.0250, L503.0105, L506.1000, L100.0100, L503.6550, L501.2300, L503.6150, L500.4050, L509.1000 #### [facility] [address] [place], [address] Platelet mean volume (Bld) [Entitic vol] 11.1 fL Normal 6.2-12.0 [facility] Comment on above: Performed By: #### L 502.0250, L503.0105, L506.1000, L100.0100, L503.6550, L501.2300, L503.6150, L500.4050, L509.1000 #### [facility] [address] [place], [address] Platelets (Bld) [#/Vol] 304 10*3/uL Normal 150-450 [facility] Comment on above: Performed By: #### L 502.0250, L503.0105, L506.1000, L100.0100, L503.6550, L501.2300, L503.6150, L500.4050, L509.1000 #### [facility] [address] [facility] [place], [address] RBC (Bld) [#/Vol] 4.82 10*6/uL Normal 4.6-6.2 [facility] Comment on above: Performed By: #### L 502.0250, L503.0105, L506.1000, L100.0100, L503.6550, L501.2300, L503.6150, L500.4050, L509.1000 #### [facility] [address] [facility] [place], [address] RDW SD 43.5 fl Normal 35.1-43.9 [facility] Comment on above: Performed By: #### L 502.0250, L503.0105, L506.1000, L100.0100, L503.6550, L501.2300, L503.6150, L500.4050, L509.1000 #### [facility] [address] [place], [address] WBC (Bld) [#/Vol] 10.4 10*3/uL Normal 4.4-11.0 [facility] Comment on above: Performed By: #### L 502.0250, L503.0105, L506.1000, L100.0100, L503.6550, L501.2300, L503.6150, L500.4050, L509.1000 #### [facility] [address] [place], [address] Comprehensive Metabolic Prof ilon 06-01-2024 Albumin [Mass/Vol] 3.3 g/dL Normal 3.2-5.0 [facility] Comment on above: Performed By: #### L 502.0250, L503.0105, L506.1000, L100.0100, L503.6550, L501.2300, L503.6150, L500.4050, L509.1000 #### [facility] [address] [place], [address] Albumin/Globulin [Mass ratio] 0.8 {ratio} Low 0.9-2.4 [facility] Comment on above: Performed By: #### L 502.0250, L503.0105, L506.1000, L100.0100, L503.6550, L501.2300, L503.6150, L500.4050, L509.1000 #### [facility] [address] [place], [address] ALK P 95 U/L Normal 45-117 [facility] Comment on above: Performed By: #### L 502.0250, L503.0105, L506.1000, L100.0100, L503.6550, L501.2300, L503.6150, L500.4050, L509.1000 #### [facility] [address] [place], [address] ALT [Catalytic activity/Vol] 15 U/L Low 16-61 [facility] Comment on above: Performed By: #### L 502.0250, L503.0105, L506.1000, L100.0100, L503.6550, L501.2300, L503.6150, L500.4050, L509.1000 #### [facility] [address] [place], [address] AST [Catalytic activity/Vol] 12 U/L Low 15-37 [facility] Comment on above: Performed By: #### L 502.0250, L503.0105, L506.1000, L100.0100, L503.6550, L501.2300, L503.6150, L500.4050, L509.1000 #### [facility] [address] [place], [address] Bilirubin [Mass/Vol] 0.30 mg/dL Normal 0.20-1.00 [facility] Comment on above: Result Comment: For patients on eltrombopag therapy, use of Dimension [place] TBIL is not recommended. Performed By: #### L 502.0250, L503.0105, L506.1000, L100.0100, L503.6550, L501.2300, L503.6150, L500.4050, L509.1000 #### [facility] [address] [place], [address] BUN/CRE 12.8 RATIO Normal 10-20 [facility] Comment on above: Performed By: #### L 502.0250, L503.0105, L506.1000, L100.0100, L503.6550, L501.2300, L503.6150, L500.4050, L509.1000 #### [facility] [address] [place], [address] CA,Total 9.2 mg/dL Normal 8.5-10.1 [facility] Comment on above: Performed By: #### L 502.0250, L503.0105, L506.1000, L100.0100, L503.6550, L501.2300, L503.6150, L500.4050, L509.1000 #### [facility] [address] [place], [address] Chloride [Moles/Vol] 105 mmol/L Normal 98-107 [facility] Comment on above: Performed By: #### L 502.0250, L503.0105, L506.1000, L100.0100, L503.6550, L501.2300, L503.6150, L500.4050, L509.1000 #### [facility] [address] [place], [address] CO2 [Moles/Vol] 27.0 mmol/L Normal 21.0-32.0 [facility] Comment on above: Performed By: #### L 502.0250, L503.0105, L506.1000, L100.0100, L503.6550, L501.2300, L503.6150, L500.4050, L509.1000 #### [facility] [address] [place], [address] Creatinine [Mass/Vol] 1.48 mg/dL High 0.70-1.30 [facility] Comment on above: Result Comment: The validity of the calculated GFR GFRAA in patients over 70 years has not been determined. Clinical correlation is essential. Performed By: #### L 502.0250, L503.0105, L506.1000, L100.0100, L503.6550, L501.2300, L503.6150, L500.4050, L509.1000 #### [facility] [address] [place], [address] EST GFR - AA 60 mL/min Normal >60 [facility] Comment on above: Result Comment: Afri can [place] GFR Calc Performed By: #### L 502.0250, L503.0105, L506.1000, L100.0100, L503.6550, L501.2300, L503.6150, L500.4050, L509.1000 #### [facility] [address] [place], [address] GAP 7 Normal 5-15 [facility] Comment on above: Performed By: #### L 502.0250, L503.0105, L506.1000, L100.0100, L503.6550, L501.2300, L503.6150, L500.4050, L509.1000 #### [facility] [address] [place], [address] GFR/1.73 sq M.predicted among non-blacks MDRD (S/P/Bld) [Vol rate/Area] 49 mL/min/{1.73_m2} Low >60 [facility] Comment on above: Result Comment: Non- GFR Calc Performed By: #### L 502.0250, L503.0105, L506.1000, L100.0100, L503.6550, L501.2300, L503.6150, L500.4050, L509.1000 #### [facility] [address] [place], [address] Globulin (S) [Mass/Vol] 4.0 g/dL Normal 2.2-4.2 [facility] Comment on above: Performed By: #### L 502.0250, L503.0105, L506.1000, L100.0100, L503.6550, L501.2300, L503.6150, L500.4050, L509.1000 #### [facility] [address] [place], [address] Glucose [Mass/Vol] 113 mg/dL High 74-106 [facility] Comment on above: Result Comment: Fast ing Glucose result from 100 to 125 mg/dL suggests IMPAIRED HOMEOSTASIS per A.D.A. criteria. Performed By: #### L 502.0250, L503.0105, L506.1000, L100.0100, L503.6550, L501.2300, L503.6150, L500.4050, L509.1000 #### [facility] [address] [place], [address] Potassium [Moles/Vol] 3.8 mmol/L Normal 3.5-5.1 [facility] Comment on above: Performed By: #### L 502.0250, L503.0105, L506.1000, L100.0100, L503.6550, L501.2300, L503.6150, L500.4050, L509.1000 #### [facility] [address] [place], [address] Sodium [Moles/Vol] 139 mmol/L Normal 136-145 [facility] Comment on above: Performed By: #### L 502.0250, L503.0105, L506.1000, L100.0100, L503.6550, L501.2300, L503.6150, L500.4050, L509.1000 #### [facility] [address] [place], [address] T PROT 7.3 g/dL Normal 6.4-8.2 [facility] Comment on above: Performed By: #### L 502.0250, L503.0105, L506.1000, L100.0100, L503.6550, L501.2300, L503.6150, L500.4050, L509.1000 #### [facility] [address] [place], [address] Urea nitrogen [Mass/Vol] 19 mg/dL High 7-18 [facility] Comment on above: Performed By: #### L 502.0250, L503.0105, L506.1000, L100.0100, L503.6550, L501.2300, L503.6150, L500.4050, L509.1000 #### [facility] [address] [place], [address] Hemoglobin A1con 06-01-2024 HbA1c (Bld) [Mass fraction] 6.3 % High 3.8-5.6 [facility] Comment on above: Result Comment: Norm al < 5.7 % Prediabetic 5.7 - 6.4 % Diabetic >or= 6.5 % Please note range changes. Performed By: #### L 502.0250, L503.0105, L506.1000, L100.0100, L503.6550, L501.2300, L503.6150, L500.4050, L509.1000 #### [facility] [address] [place], [address] Lipid Profileon 06-01-2024 Cholesterol [Mass/Vol] 185 mg/dL Normal 200 [facility] Comment on above: Result Comment: <200 mg/dL Desirable 200-240 mg/dL Borderline >240 mg/dL High Risk Performed By: #### L 502.0250, L503.0105, L506.1000, L100.0100, L503.6550, L501.2300, L503.6150, L500.4050, L509.1000 #### [facility] [address] [place], [place], [id number] (013) Cholesterol in HDL [Mass/Vol] 51 mg/dL Normal [facility] Comment on above: Result Comment: The drugs N-Acetylcysteine and Metamizole may falsely depress this assay. Reference Range HDL <40 mg/dL Low HDL Cholesterol HDL >or= 60 mg/dL High HDL Cholesterol Performed By: #### L 502.0250, L503.0105, L506.1000, L100.0100, L503.6550, L501.2300, L503.6150, L500.4050, L509.1000 #### [facility] [address] [place], [address] Cholesterol in LDL [Mass/Vol] 118 mg/dL Normal 0-130 [facility] Comment on above: Performed By: #### L 502.0250, L503.0105, L506.1000, L100.0100, L503.6550, L501.2300, L503.6150, L500.4050, L509.1000 #### [facility] [address] [place], [address] Cholesterol in VLDL [Mass/Vol] 16 mg/dL Normal 5-40 [facility] Comment on above: Performed By: #### L 502.0250, L503.0105, L506.1000, L100.0100, L503.6550, L501.2300, L503.6150, L500.4050, L509.1000 #### [facility] [address] [place], [address] Triglyceride [Mass/Vol] 80 mg/dL Normal [facility] Comment on above: Result Comment: The drugs N-Acetylcysteine and Metamizole may falsely depress this assay. Serum Triglycerides Reference Interval Normal <150 mg/dL Borderline high 150 - 199 mg/dL High 200 - 499 mg/dL Very High > or = 500 mg/dL Performed By: #### L 502.0250, L503.0105, L506.1000, L100.0100, L503.6550, L501.2300, L503.6150, L500.4050, L509.1000 #### [facility] [address] [place], [address] PTHINon 06-01-2024 PTH 54.3 pg/mL Normal 18.4-80.1 [facility] Comment on above: Performed By: #### L 502.0250, L503.0105, L506.1000, L100.0100, L503.6550, L501.2300, L503.6150, L500.4050, L509.1000 #### [facility] [address] [place], [address] Phosphoruson 06-01-2024 Phosphate [Mass/Vol] 2.8 mg/dL Normal 2.5-4.9 [facility] Comment on above: Performed By: #### L 502.0250, L503.0105, L506.1000, L100.0100, L503.6550, L501.2300, L503.6150, L500.4050, L509.1000 #### [facility] [address] [place], [address] Vitamin B12on 06-01-2024 Cobalamin (Vitamin B12) [Mass/Vol] 885 pg/mL Normal 211-911 [facility] Comment on above: Performed By: #### L 502.0250, L503.0105, L506.1000, L100.0100, L503.6550, L501.2300, L503.6150, L500.4050, L509.1000 #### [facility] [address] [place], [address] CBC W/Diff, Automatedon 11-20 Absolute Lymph 1.76 X10 3/uL Normal 0.83-4.51 [facility] Comment on above: Performed By: #### L 502.0250, L503.0105, L506.1000, L100.0100, L503.6550, L501.2300, L503.6150, L500.4050, L509.1000 #### [facility] [address] [place], [address] Absolute Neut 7.6 X10 3/uL Normal 2.0-7.7 [facility] Comment on above: Performed By: #### L 502.0250, L503.0105, L506.1000, L100.0100, L503.6550, L501.2300, L503.6150, L500.4050, L509.1000 #### [facility] [address] [place], [address] Basophils/100 WBC (Bld) 0.6 % Normal 0-[address] [facility] Comment on above: Performed By: #### L 502.0250, L503.0105, L506.1000, L100.0100, L503.6550, L501.2300, L503.6150, L500.4050, L509.1000 #### [facility] [address] [place], [address] Eosinophils/100 WBC (Bld) 2.4 % Normal 0-5 [facility] Comment on above: Performed By: #### L 502.0250, L503.0105, L506.1000, L100.0100, L503.6550, L501.2300, L503.6150, L500.4050, L509.1000 #### [facility] [address] [facility] [place], [address] Erythrocyte distribution width (RBC) [Ratio] 14.8 % High 11.6-14.6 [facility] Comment on above: Performed By: #### L 502.0250, L503.0105, L506.1000, L100.0100, L503.6550, L501.2300, L503.6150, L500.4050, L509.1000 #### [facility] [address] [facility] [place], [address] Hematocrit (Bld) [Volume fraction] 39.9 % Low 40-54 [facility] Comment on above: Performed By: #### L 502.0250, L503.0105, L506.1000, L100.0100, L503.6550, L501.2300, L503.6150, L500.4050, L509.1000 #### [facility] [address] [place], [address] Hemoglobin (Bld) [Mass/Vol] 12.0 g/dL Low 13.0-16.5 [facility] Comment on above: Performed By: #### L 502.0250, L503.0105, L506.1000, L100.0100, L503.6550, L501.2300, L503.6150, L500.4050, L509.1000 #### [facility] [address] [place], [address] IG% 0.200 Normal 0.0-0.9 [facility] Comment on above: Result Comment: IG% - Immature Granulocytes (promyelocytes, myelocytes and metamyelocytes) > 1% indicates that a LEFT SHIFT is Present. Performed By: #### L 502.0250, L503.0105, L506.1000, L100.0100, L503.6550, L501.2300, L503.6150, L500.4050, L509.1000 #### [facility] [address] [place], [address] Lymphocytes/100 WBC (Bld) 17.1 % Low 19-41 [facility] Comment on above: Performed By: #### L 502.0250, L503.0105, L506.1000, L100.0100, L503.6550, L501.2300, L503.6150, L500.4050, L509.1000 #### [facility] [address] [place], [address] MCH (RBC) [Entitic mass] 25.8 pg Low 27.0-32.0 [facility] Comment on above: Performed By: #### L 502.0250, L503.0105, L506.1000, L100.0100, L503.6550, L501.2300, L503.6150, L500.4050, L509.1000 #### [facility] [address] [place], [address] MCHC (RBC) [Mass/Vol] 30.1 g/dL Low 32-36 [facility] Comment on above: Performed By: #### L 502.0250, L503.0105, L506.1000, L100.0100, L503.6550, L501.2300, L503.6150, L500.4050, L509.1000 #### [facility] [address] [place], [address] MCV (RBC) [Entitic vol] 85.8 fL Normal 80-[address] [facility] Comment on above: Performed By: #### L 502.0250, L503.0105, L506.1000, L100.0100, L503.6550, L501.2300, L503.6150, L500.4050, L509.1000 #### [facility] [address] [place], [address] Monocytes/100 WBC (Bld) 6.2 % Normal 0-[address] [facility] Comment on above: Performed By: #### L 502.0250, L503.0105, L506.1000, L100.0100, L503.6550, L501.2300, L503.6150, L500.4050, L509.1000 #### [facility] [address] [place], [address] Neutrophils/100 WBC (Bld) 73.5 % High 47-70 [facility] Comment on above: Performed By: #### L 502.0250, L503.0105, L506.1000, L100.0100, L503.6550, L501.2300, L503.6150, L500.4050, L509.1000 #### [facility] [address] [place], [address] Nucleated RBC (Bld) [#/Vol] 0 10*3/uL Normal 0-5 [facility] Comment on above: Performed By: #### L 502.0250, L503.0105, L506.1000, L100.0100, L503.6550, L501.2300, L503.6150, L500.4050, L509.1000 #### [facility] [address] [place], [address] Platelet mean volume (Bld) [Entitic vol] 10.0 fL Normal 6.2-12.0 [facility] Comment on above: Performed By: #### L 502.0250, L503.0105, L506.1000, L100.0100, L503.6550, L501.2300, L503.6150, L500.4050, L509.1000 #### [facility] [address], [address] Platelets (Bld) [#/Vol] 253 10*3/uL Normal 150-450 [facility] Comment on above: Performed By: #### L 502.0250, L503.0105, L506.1000, L100.0100, L503.6550, L501.2300, L503.6150, L500.4050, L509.1000 #### [facility] [address] [facility] [place], [address] RBC (Bld) [#/Vol] 4.65 10*6/uL Normal 4.6-6.2 [facility] Comment on above: Performed By: #### L 502.0250, L503.0105, L506.1000, L100.0100, L503.6550, L501.2300, L503.6150, L500.4050, L509.1000 #### [facility] [address] [facility] [place], [address] RDW SD 46.9 fl High 35.1-43.9 [facility] Comment on above: Performed By: #### L 502.0250, L503.0105, L506.1000, L100.0100, L503.6550, L501.2300, L503.6150, L500.4050, L509.1000 #### [facility] [address] [facility] [place], [address] WBC (Bld) [#/Vol] 10.3 10*3/uL Normal 4.4-11.0 [facility] Comment on above: Performed By: #### L 502.0250, L503.0105, L506.1000, L100.0100, L503.6550, L501.2300, L503.6150, L500.4050, L509.1000 #### [facility] [address] [place], [address] Comprehensive Metabolic Prof ilon 12-02-2023 Albumin [Mass/Vol] 3.2 g/dL Normal 3.2-5.0 [facility] Comment on above: Performed By: #### L 502.0250, L503.0105, L506.1000, L100.0100, L503.6550, L501.2300, L503.6150, L500.4050, L509.1000 #### [facility] [address] [place], [address] Albumin/Globulin [Mass ratio] 0.8 {ratio} Low 0.9-2.4 [facility] Comment on above: Performed By: #### L 502.0250, L503.0105, L506.1000, L100.0100, L503.6550, L501.2300, L503.6150, L500.4050, L509.1000 #### [facility] [address] [place], [address] ALK P 82 U/L Normal 45-117 [facility] Comment on above: Performed By: #### L 502.0250, L503.0105, L506.1000, L100.0100, L503.6550, L501.2300, L503.6150, L500.4050, L509.1000 #### [facility] [address] [place], [address] ALT [Catalytic activity/Vol] 17 U/L Normal 16-61 [facility] Comment on above: Performed By: #### L 502.0250, L503.0105, L506.1000, L100.0100, L503.6550, L501.2300, L503.6150, L500.4050, L509.1000 #### [facility] [address] [place], [address] AST [Catalytic activity/Vol] 17 U/L Normal 15-37 [facility] Comment on above: Performed By: #### L 502.0250, L503.0105, L506.1000, L100.0100, L503.6550, L501.2300, L503.6150, L500.4050, L509.1000 #### [facility] [address] [place], [address] Bilirubin [Mass/Vol] 0.50 mg/dL Normal 0.20-1.00 [facility] Comment on above: Result Comment: For patients on eltrombopag therapy, use of Dimension [place] TBIL is not recommended. Performed By: #### L 502.0250, L503.0105, L506.1000, L100.0100, L503.6550, L501.2300, L503.6150, L500.4050, L509.1000 #### [facility] [facility] [address] [place], [address] BUN/CRE 16.3 RATIO Normal 10-20 [facility] Comment on above: Performed By: #### L 502.0250, L503.0105, L506.1000, L100.0100, L503.6550, L501.2300, L503.6150, L500.4050, L509.1000 #### [facility] [address] [place], [address] CA,Total 9.2 mg/dL Normal 8.5-10.1 [facility] Comment on above: Performed By: #### L 502.0250, L503.0105, L506.1000, L100.0100, L503.6550, L501.2300, L503.6150, L500.4050, L509.1000 #### [facility] [address] [place], [address] Chloride [Moles/Vol] 105 mmol/L Normal 98-107 [facility] Comment on above: Performed By: #### L 502.0250, L503.0105, L506.1000, L100.0100, L503.6550, L501.2300, L503.6150, L500.4050, L509.1000 #### [facility] [address] [place], [address] CO2 [Moles/Vol] 26.0 mmol/L Normal 21.0-32.0 [facility] Comment on above: Performed By: #### L 502.0250, L503.0105, L506.1000, L100.0100, L503.6550, L501.2300, L503.6150, L500.4050, L509.1000 #### [facility] [address] [place], [address] Creatinine [Mass/Vol] 1.35 mg/dL High 0.70-1.30 [facility] Comment on above: Result Comment: The validity of the calculated GFR GFRAA in patients over 70 years has not been determined. Clinical correlation is essential. Performed By: #### L 502.0250, L503.0105, L506.1000, L100.0100, L503.6550, L501.2300, L503.6150, L500.4050, L509.1000 #### [facility] [address] [place], [address] EST GFR - AA 67 mL/min Normal >60 [facility] Comment on above: Result Comment: Afri can [place] GFR Calc Performed By: #### L 502.0250, L503.0105, L506.1000, L100.0100, L503.6550, L501.2300, L503.6150, L500.4050, L509.1000 #### [facility] [address] [place], [address] GAP 7 Normal 5-15 [facility] Comment on above: Performed By: #### L 502.0250, L503.0105, L506.1000, L100.0100, L503.6550, L501.2300, L503.6150, L500.4050, L509.1000 #### [facility] [address] [place], [address] GFR/1.73 sq M.predicted among non-blacks MDRD (S/P/Bld) [Vol rate/Area] 55 mL/min/{1.73_m2} Low >60 [facility] Comment on above: Result Comment: Non- GFR Calc Performed By: #### L 502.0250, L503.0105, L506.1000, L100.0100, L503.6550, L501.2300, L503.6150, L500.4050, L509.1000 #### [facility] [address] [place], [address] Globulin (S) [Mass/Vol] 4.2 g/dL Normal 2.2-4.[address] [facility] Comment on above: Performed By: #### L 502.0250, L503.0105, L506.1000, L100.0100, L503.6550, L501.2300, L503.6150, L500.4050, L509.1000 #### [facility] [address] [place], [address] Glucose [Mass/Vol] 114 mg/dL High 74-106 [facility] Comment on above: Result Comment: Fast ing Glucose result from 100 to 125 mg/dL suggests IMPAIRED HOMEOSTASIS per A.D.A. criteria. Performed By: #### L 502.0250, L503.0105, L506.1000, L100.0100, L503.6550, L501.2300, L503.6150, L500.4050, L509.1000 #### [facility] [address] [place], [address] Potassium [Moles/Vol] 3.9 mmol/L Normal 3.5-5.1 [facility] Comment on above: Performed By: #### L 502.0250, L503.0105, L506.1000, L100.0100, L503.6550, L501.2300, L503.6150, L500.4050, L509.1000 #### [facility] [address] [place], [address] Sodium [Moles/Vol] 138 mmol/L Normal 136-145 [facility] Comment on above: Performed By: #### L 502.0250, L503.0105, L506.1000, L100.0100, L503.6550, L501.2300, L503.6150, L500.4050, L509.1000 #### [facility] [address] [place], [address] T PROT 7.4 g/dL Normal 6.4-8.2 [facility] Comment on above: Performed By: #### L 502.0250, L503.0105, L506.1000, L100.0100, L503.6550, L501.2300, L503.6150, L500.4050, L509.1000 #### [facility] [address] [place], [address] Urea nitrogen [Mass/Vol] 22 mg/dL High 7-18 [facility] Comment on above: Performed By: #### L 502.0250, L503.0105, L506.1000, L100.0100, L503.6550, L501.2300, L503.6150, L500.4050, L509.1000 #### [facility] [address] [place], [address] Ferritinon 12-02-2023 Ferritin [Mass/Vol] 119 ng/mL Normal 26-388 [facility] Comment on above: Performed By: #### L 502.0250, L503.0105, L506.1000, L100.0100, L503.6550, L501.2300, L503.6150, L500.4050, L509.1000 #### [facility] [address] [place], [place], [id number] (317) Ironon 12-02-2023 Iron [Mass/Vol] 37 ug/dL Low 65-175 [facility] Comment on above: Performed By: #### L 502.0250, L503.0105, L506.1000, L100.0100, L503.6550, L501.2300, L503.6150, L500.4050, L509.1000 #### [facility] [address] [place], [place], [id number] Microalb:Creat Ratio,Random URon 12-02-2023 Creatinine [Mass/Vol] 132.00 mg/dL Normal NO RANGE EST . [facility] Comment on above: Performed By: #### L 502.0250, L503.0105, L506.1000, L100.0100, L503.6550, L501.2300, L503.6150, L500.4050, L509.1000 #### [facility] [address] [place], [place], [id number] MALB:CRE 16.3 mg/g CRE Normal <30 mg/g CRE [facility] Comment on above: Performed By: #### L 502.0250, L503.0105, L506.1000, L100.0100, L503.6550, L501.2300, L503.6150, L500.4050, L509.1000 #### [facility] [address] [place], [place], [id number] MICROALBUMIN,UR 21.5 mg/L Normal NO RANGE EST. [facility] Comment on above: Performed By: #### L 502.0250, L503.0105, L506.1000, L100.0100, L503.6550, L501.2300, L503.6150, L500.4050, L509.1000 #### [facility] [address] [facility] [place], [address] PTHINon 12-02-2023 PTH 64.9 pg/mL Normal 18.4-80.1 [facility] Comment on above: Performed By: #### L 502.0250, L503.0105, L506.1000, L100.0100, L503.6550, L501.2300, L503.6150, L500.4050, L509.1000 #### [facility] [address] [facility] [place], [address] Phosphoruson 12-02-2023 Phosphate [Mass/Vol] 2.6 mg/dL Normal 2.5-4.9 [facility] Comment on above: Performed By: #### L 502.0250, L503.0105, L506.1000, L100.0100, L503.6550, L501.2300, L503.6150, L500.4050, L509.1000 #### [facility] [address] [facility] [place], [address] Vitamin B12on 12-02-2023 Cobalamin (Vitamin B12) [Mass/Vol] 1274 pg/mL High 211-911 [facility] Comment on above: Performed By: #### L 502.0250, L503.0105, L506.1000, L100.0100, L503.6550, L501.2300, L503.6150, L500.4050, L509.1000 #### [facility] [address] [facility] [place], [address] Vitamin D,25 Hydroxyon 12-01 Vitamin D 25-OH 46.1 ng/mL Normal [facility] Comment on above: Result Comment: Dali min D 25(OH) Status Range Deficiency <20 ng/mL (50nmol/L) Insufficiency 20 - 30 ng/mL (50 - 75 nmol/L) Sufficiency 30 - 100 ng/mL (75 - 250 nmol/L) Toxicity >100 ng/mL (>250 nmol/L) Performed By: #### L 502.0250, L503.0105, L506.1000, L100.0100, L503.6550, L501.2300, L503.6150, L500.4050, L509.1000 #### [facility] [address] [place], [address] Absolute lymphocyte countOrd ered By: Donta Prabhakar on 05-29-2023 Lymphocytes Auto (Unsp spec) [#/Vol] 1.53 10*3/uL 0.83-4.51 [facility] Automated lymphocyte count a s percentage of total leukocytesOrdered By: Donta Prabhakar on 05-29-2023 Lymphocytes/100 WBC Auto (Unsp spec) 14.1 % 19-41 [facility] Basophil percentageOrdered B y: Donta Prabhakar on 05-29-2023 Basophils/100 WBC (Bld) 0.6 % 0-1 [facility] Bilirubin [Mass/Vol] 0.50 mg/dL 0.20-1.00 [facility] Comment on above: For patients on eltr ombopag therapy, use of Dimension [place] TBIL is not recommended. Chloride [Moles/Vol] 106 mmol/L 98-107 [facility] Cholesterol [Mass/Vol] 190 mg/dL <200 [facility] Comment on above: <200 mg/dL Desirable 200-240 mg/dL Borderline >240 mg/dL High Risk Eosinophils/100 WBC (Bld) 0.7 % 0-5 [facility] Glucose [Mass/Vol] 107 mg/dL 74-106 [facility] Comment on above: Fasting Glucose resu lt from 100 to 125 mg/dL suggests IMPAIRED HOMEOSTASIS per A.D.A. criteria. Hemoglobin (Bld) [Mass/Vol] 11.2 g/dL 13.0-16.5 [facility] Monocytes/100 WBC (Bld) 6.1 % 0-[address] [facility] Neutrophils (Bld) [#/Vol] 8.5 10*3/uL 2.0-7.7 [facility] Neutrophils/100 WBC (Bld) 78.3 % 47-70 [facility] Potassium [Moles/Vol] 3.8 mmol/L 3.5-5.1 [facility] Protein [Mass/Vol] 7.3 g/dL 6.4-8.2 [facility] Sodium [Moles/Vol] 138 mmol/L 136-145 [facility] Triglyceride [Mass/Vol] 70 mg/dL <199 [facility] Comment on above: The drugs N-Acetylcy steine and Metamizole may falsely depress this assay.Serum Triglycerides Reference Interval Normal <150 mg/dL Borderline high 150 - 199 mg/dL High 200 - 499 mg/dL Very High > or = 500 mg/dL WBC (Bld) [#/Vol] 10.9 10*3/uL 4.4-11.0 [facility] Determination of erythrocyte mean corpuscular volume (MCV)Ordered By: Donta Prabhakar on 05-29-2023 MCV (RBC) [Entitic vol] 85.4 fL 80-94 [facility] Erythrocyte distribution wid th ratioOrdered By: Donta Prabhakar on 05-29-2023 Erythrocyte distribution width (RBC) [Ratio] 14.8 % 11.6-14.6 [facility] Erythrocyte distribution wid th standard deviationOrdered By: Donta Prabhakar on 05-29-2023 Erythrocyte distribution width (RBC) [Entitic vol] 46.4 fL 35.1-43.9 [facility] Hematocrit Auto (Bld) [Volum e fraction]Ordered By: Donta Prabhakar on 05-29-2023 Hematocrit (Bld) [Volume fraction] 37.3 % 40-54 [facility] Immature granulocytes/100 WB C Auto (Bld)Ordered By: Donta Prabhakar on 05-29-2023 Immature granulocytes/100 WBC (Bld) 0.200 % 0.0-0.9 [facility] Comment on above: IG% - Immature Granu locytes (promyelocytes, myelocytes and metamyelocytes) > 1% indicates that a LEFT SHIFT is Present. Laboratory - Chemistry and C hemistry - challengeOrdered By: Donta Prabhakar on 05-29-2023 Albumin/Globulin [Mass ratio] 0.7 {ratio} 0.9-2.4 [facility] ALP [Catalytic activity/Vol] 117 U/L 45-117 [facility] ALT [Catalytic activity/Vol] 22 U/L 16-61 [facility] Cholesterol in HDL [Mass/Vol] 45 mg/dL >40 [facility] Comment on above: The drugs N-Acetylcy steine and Metamizole may falsely depress this assay. Reference Range HDL <40 mg/dL Low HDL Cholesterol HDL >or= 60 mg/dL High HDL Cholesterol Cholesterol in LDL [Mass/Vol] 131 mg/dL 0-130 [facility] CO2 [Moles/Vol] 25.0 mmol/L 21.0-32.0 [facility] Globulin (S) [Mass/Vol] 4.2 g/dL 2.2-4.[address] [facility] Urea nitrogen/Creatinine [Mass ratio] 12.6 mg/mg 10-20 [facility] Laboratory - Hematology and Cell countsOrdered By: Donta Prabhakar on 05-29-2023 MCH (RBC) [Entitic mass] 25.6 pg 27.0-32.0 [facility] MCHC (RBC) [Mass/Vol] 30.0 g/dL 32-36 [facility] Nucleated RBC/100 WBC (Bld) [Ratio] 0 % 0-5 [facility] Platelet mean volume (Bld) [Entitic vol] 10.2 fL 6.2-12.0 [facility] Platelets (Bld) [#/Vol] 251 10*3/uL 150-450 [facility] No Panel InformationOrdered By: Donta Prabhakar on 05-29-2023 Estimated GFR (MDRD) Amer 59 mL/min >60 [facility] Comment on above: GFR Calc Estimated GFR (MDRD) Non-Af Amer 48 mL/min >60 [facility] Comment on above: Non- GFR Calc Prostate Specific Antigen Screen 2.07 ng/mL 0.00-4.00 [facility] Comment on above: This test was perfor med using the TPSA assay method for [employer] chemistry system. Values obtained with differentassay methods cannot be used interchangably.When changing PSA assays in the course of monitoring apatient, additional sequential testing should be carriedout to confirm baseline values. VLDL Cholesterol 14 mg/dL 5-40 [facility] RBC Auto (Bld) [#/Vol]Ordere d By: Donta Prabhakar on 05-29-2023 RBC (Bld) [#/Vol] 4.37 10*6/uL 4.6-6.2 [facility] Serum or plasma calcium red urement (mass/volume)Ordered By: Donta Prabhakar on 05-29-2023 Calcium [Mass/Vol] 9.3 mg/dL 8.5-10.1 [facility] Serum or plasma creatinine m easurement (mass/volume)Ordered By: Donta Prabhakar on 05-29-2023 Creatinine [Mass/Vol] 1.51 mg/dL 0.70-1.30 [facility] Comment on above: The validity of the calculated GFR & GFRAA in patients over 70 years has not been determined. Clinical correlation is essential. Serum or plasma urea nitroge n measurement (mass/volume)Ordered By: Donta Prabhakar on 05-29-2023 Urea nitrogen [Mass/Vol] 19 mg/dL 7-18 [facility] Thin prep Papanicolaou smear with manual screeningOrdered By: Donta Prabhakar on 05-29-2023 Thin prep Papanicolaou smear with manual screening 3.1 g/dL 3.2-5.0 [facility] Thin prep Papanicolaou smear with manual screening 16 U/L 15-37 [facility] Thin prep Papanicolaou smear with manual screening 7 5-15 [facility] Basophil percentageOrdered B y: Dr. Aquino on 10-03-2022 Basophil percentage 2.4 mg/dL 2.5-4.9 [facility] Chloride [Moles/Vol] 108 mmol/L 98-107 [facility] Glucose [Mass/Vol] 113 mg/dL 74-106 [facility] Comment on above: Fasting Glucose resu lt from 100 to 125 mg/dL suggests IMPAIRED HOMEOSTASIS per A.D.A. criteria. Potassium [Moles/Vol] 3.8 mmol/L 3.5-5.1 [facility] Sodium [Moles/Vol] 140 mmol/L 136-145 [facility] WBC (Bld) [#/Vol] 12.4 10*3/uL 4.4-11.0 [facility] Blood erythrocytes count (nu mber/volume)Ordered By: Dr. Aquino on 10-03-2022 RBC (Bld) [#/Vol] 4.29 10*6/uL 4.6-6.2 [facility] Blood hemoglobin measurement (mass/volume)Ordered By: Dr. Aquino on 10-03-2022 Hemoglobin (Bld) [Mass/Vol] 11.0 g/dL 13.0-16.5 [facility] Blood platelet mean volumeOr dered By: Dr. Aquino on 10-03-2022 Platelet mean volume (Bld) [Entitic vol] 10.3 fL 6.2-12.0 [facility] Determination of erythrocyte mean corpuscular volume (MCV)Ordered By: Dr. Aquino on 10-03-2022 MCV (RBC) [Entitic vol] 86.7 fL 80-[address] [facility] Hematocrit Auto (Bld) [Volum e fraction]Ordered By: Dr. Aquino on 10-03-2022 Hematocrit (Bld) [Volume fraction] 37.2 % 40-54 [facility] Laboratory - Chemistry and C hemistry - challengeOrdered By: Dr. Aquino on 10-03-2022 CO2 [Moles/Vol] 27.0 mmol/L 21.0-32.0 [facility] Urea nitrogen/Creatinine [Mass ratio] 16.4 mg/mg 10-20 [facility] Laboratory - Hematology and Cell countsOrdered By: Dr. Aquino on 10-03-2022 Erythrocyte distribution width (RBC) [Entitic vol] 44.4 fL 35.1-43.9 [facility] Erythrocyte distribution width (RBC) [Ratio] 14.0 % 11.6-14.6 [facility] MCH (RBC) [Entitic mass] 25.6 pg 27.0-32.0 [facility] MCHC Auto (RBC) [Mass/Vol]Or dered By: Dr. Aquino on 10-03-2022 MCHC (RBC) [Mass/Vol] 29.6 g/dL 32-36 [facility] No Panel InformationOrdered By: Dr. Aquino on 10-03-2022 Estimated GFR (MDRD) Amer 75 mL/min >60 [facility] Comment on above: GFR Calc Estimated GFR (MDRD) Non-Af Amer 62 mL/min >60 [facility] Comment on above: Non- GFR Calc Parathyroid Hormone (Intact) 76.5 pg/mL 18.4-80.1 [facility] Platelets bldOrdered By: Dr. Aquino on 10-03-2022 Platelets (Bld) [#/Vol] 276 10*3/uL 150-450 [facility] Serum or plasma albumin red urement (mass/volume)Ordered By: Dr. Aquino on 10-03-2022 Albumin [Mass/Vol] 3.0 g/dL 3.2-5.0 [facility] Serum or plasma calcium red urement (mass/volume)Ordered By: Dr. Aquino on 10-03-2022 Calcium [Mass/Vol] 9.0 mg/dL 8.5-10.1 [facility] Serum or plasma creatinine m easurement (mass/volume)Ordered By: Dr. Aquino on 10-03-2022 Creatinine [Mass/Vol] 1.22 mg/dL 0.70-1.30 [facility] Comment on above: The validity of the calculated GFR & GFRAA in patients over 70 years has not been determined. Clinical correlation is essential. Serum or plasma urea nitroge n measurement (mass/volume)Ordered By: Dr. Aquino on 10-03-2022 Urea nitrogen [Mass/Vol] 20 mg/dL 7-18 [facility] No Panel InformationOrdered By: Dr. Prabhakar on 06-08-2022 Serum Immunofixation Comment . [facility] Comment on above: No monoclonality det ected. Serum or plasma IgA measurem ent (mass/volume)Ordered By: Dr. Prabhakar on 06-08-2022 IgA [Mass/Vol] 43 mg/dL 61-437 [facility] Comment on above: Result confirmed on concentration. Serum or plasma IgG measurem ent (mass/volume)Ordered By: Dr. Prabhakar on 06-08-2022 IgG [Mass/Vol] 896 mg/dL 603-1613 [facility] Serum or plasma IgM measurem ent (mass/volume)Ordered By: Dr. Prabhakar on 06-08-2022 IgM [Mass/Vol] 396 mg/dL 15-143 [facility] Comment on above: Performed at: [facility] [address] [id number] Director: Johnny Green PhD, Phone: [phone] 24 hour urine alpha 2 globul in/total protein ratio by electrophoresis (mass fraction)Ordered By: Dr. Prabhakar on 06-05-2022 Alpha 2 globulin Elph (24H U) [Mass fraction] 28.8 % . [facility] 24 hour urine beta globulin/ total protein ratio by electrophoresis (mass fraction)Ordered By: Dr. Prabhakar on 06-05-2022 Beta globulin Elph (24H U) [Mass fraction] 23.0 % . [facility] 24 hour urine gamma globulin /total protein ratio by electrophoresis (mass fraction)Ordered By: Dr. Prabhakar on 06-05-2022 Gamma globulin Elph (24H U) [Mass fraction] 23.2 % . [facility] Basophil percentageOrdered B y: Dr. Prabhakar on 06-05-2022 Basophil percentage Comment . [facility] Comment on above: No monoclonality det ected.Performed at: [facility] [address] [id number] Director: Johnny Green PhD, Phone: [phone] LDH [Catalytic activity/Vol] 188 U/L 87-241 [facility] Iron measurement (mass/mass) Ordered By: Dr. Prabhakar on 06-05-2022 Iron (Unsp spec) [Mass/Mass] 26 ug/dL 65-175 [facility] Laboratory - Chemistry and C hemistry - challengeOrdered By: Dr. Prabhakar on 06-05-2022 Albumin [Mass/Vol] 3.5 g/dL 2.9-4.4 [facility] Cobalamin (Vitamin B12) [Mass/Vol] 258 pg/mL 211-911 [facility] No Panel InformationOrdered By: Dr. Prabhakar on 06-05-2022 Addendum Document Comment . [facility] Comment on above: The SPE pattern appe ars unremarkable. Evidence ofmonoclonal protein is not apparent. Kjyrq-5-Jqttojhyj 0.3 g/dL 0.0-0.4 [facility] Dmldt-1-Ykbbmdxqq 0.8 g/dL 0.4-1.0 [facility] Gamma Globulins 1.0 g/dL 0.4-1.8 [facility] Urine Immunofixation PEP Note Comment . [facility] Comment on above: Protein electrophore sis scan will follow via computer,mail, or field installer delivery. Protein Fractions Elph [Inte rp]Ordered By: Dr. Prabhakar on 06-05-2022 Protein Fractions [Interp] Comment . [facility] Comment on above: Protein electrophore sis scan will follow via computer,mail, or field installer delivery. Serum albumin to globulin ra krista by protein electrophoresisOrdered By: Dr. Prabhakar on 06-05-2022 Albumin/Globulin Elph [Mass ratio] 1.2 0.7-1.7 [facility] Serum globulin measurement ( mass/volume)Ordered By: Dr. Prabhakar on 06-05-2022 Globulin (S) [Mass/Vol] 3.0 g/dL 2.2-3.[address] [facility] Serum or plasma beta globuli n measurement by electrophoresis (mass/volume)Ordered By: Dr. Prabhakar on 06-05-2022 Beta globulin Elph [Mass/Vol] 0.9 g/dL 0.7-1.3 [facility] Serum or plasma ferritin matt surement (mass/volume)Ordered By: Dr. Prabhakar on 06-05-2022 Ferritin [Mass/Vol] 158 ng/mL 26-388 [facility] Thin prep Papanicolaou smear with manual screeningOrdered By: Dr. Prabhakar on 06-05-2022 Thin prep Papanicolaou smear with manual screening See comment [facility] Comment on above: NOT OBSERVED Total protein bloodOrdered B y: Dr. Prabhakar on 06-05-2022 Protein [Mass/Vol] 6.5 g/dL 6.0-8.5 [facility] Urine albumin/total protein mass ratio by electrophoresisOrdered By: Dr. Prabhakar on 06-05-2022 Albumin Elph (U) [Mass fraction] 21.1 % . [facility] Urine alpha 1 globulin/total protein ratio by electrophoresis (mass fraction)Ordered By: Dr. Prabhakar on 06-05-2022 Alpha 1 globulin Elph (U) [Mass fraction] 3.8 % . [facility] Urine monoclonal protein/tot al protein mass ratio by electrophoresisOrdered By: Dr. Prabhakar on 06-05-2022 Protein.monoclonal Elph (U) [Mass fraction] See comment [facility] Comment on above: NOT OBSERVED Urine protein measurement (m ass/volume)Ordered By: Dr. Prabhakar on 06-05-2022 Protein (U) [Mass/Vol] 13.6 mg/dL Not Estab. [facility] Absolute lymphocyte countOrd ered By: Dr. Prabhakar on 05-23-2022 Lymphocytes Auto (Unsp spec) [#/Vol] 1.88 10*3/uL 0.83-4.51 [facility] Basophil percentageOrdered B y: Dr. Prabhakar on 05-23-2022 Basophils/100 WBC (Bld) 0.8 % 0-1 [facility] Bilirubin [Mass/Vol] 0.60 mg/dL 0.20-1.00 [facility] Comment on above: For patients on eltr ombopag therapy, use of Dimension [place] TBIL is not recommended. Chloride [Moles/Vol] 106 mmol/L 98-107 [facility] Cholesterol [Mass/Vol] 194 mg/dL <200 [facility] Comment on above: <200 mg/dL Desirable 200-240 mg/dL Borderline >240 mg/dL High Risk Eosinophils/100 WBC (Bld) 1.0 % 0-5 [facility] Glucose [Mass/Vol] 123 mg/dL 74-106 [facility] Comment on above: Fasting Glucose resu lt from 100 to 125 mg/dL suggests IMPAIRED HOMEOSTASIS per A.D.A. criteria. Neutrophils (Bld) [#/Vol] 7.2 10*3/uL 2.0-7.7 [facility] Neutrophils/100 WBC (Bld) 71.8 % 47-70 [facility] Potassium [Moles/Vol] 3.8 mmol/L 3.5-5.1 [facility] Protein [Mass/Vol] 7.3 g/dL 6.4-8.2 [facility] Sodium [Moles/Vol] 141 mmol/L 136-145 [facility] Triglyceride [Mass/Vol] 72 mg/dL <[address] [facility] Comment on above: The drugs N-Acetylcy steine and Metamizole may falsely depress this assay.Serum Triglycerides Reference Interval Normal <150 mg/dL Borderline high 150 - 199 mg/dL High 200 - 499 mg/dL Very High > or = 500 mg/dL WBC (Bld) [#/Vol] 10.0 10*3/uL 4.4-11.0 [facility] Bilirubin Test strip Ql (U)O rdered By: Dr. Prabhakar on 05-23-2022 Bilirubin Ql (U) Negative Negative [facility] Blood erythrocytes count (nu mber/volume)Ordered By: Dr. Prabhakar on 05-23-2022 RBC (Bld) [#/Vol] 4.51 10*6/uL 4.6-6.2 [facility] Blood hemoglobin measurement (mass/volume)Ordered By: Dr. Prabhakar on 05-23-2022 Hemoglobin (Bld) [Mass/Vol] 12.5 g/dL 13.0-16.5 [facility] Blood lymphocytes/100 leukoc ytesOrdered By: Dr. Prabhakar on 05-23-2022 Lymphocytes/100 WBC (Bld) 18.8 % 19-41 [facility] Blood monocytes/100 leukocyt esOrdered By: Dr. Prabhakar on 05-23-2022 Monocytes/100 WBC (Bld) 7.4 % 0-[address] [facility] Blood platelet mean volumeOr dered By: Dr. Prabhakar on 05-23-2022 Platelet mean volume (Bld) [Entitic vol] 11.0 fL 6.2-12.0 [facility] Determination of erythrocyte mean corpuscular volume (MCV)Ordered By: Dr. Prabhakar on 05-23-2022 MCV (RBC) [Entitic vol] 88.7 fL 80-[address] [facility] Hematocrit Auto (Bld) [Volum e fraction]Ordered By: Dr. Prabhakar on 05-23-2022 Hematocrit (Bld) [Volume fraction] 40.0 % 40-54 [facility] Ketones Test strip Ql (U)Ord ered By: Dr. Prabhakar on 05-23-2022 Ketones Ql (U) 5 mg/dl Negative [facility] Laboratory - Chemistry and C hemistry - challengeOrdered By: Dr. Prabhakar on 05-23-2022 ALP [Catalytic activity/Vol] 104 U/L 45-117 [facility] ALT [Catalytic activity/Vol] 19 U/L 16-61 [facility] CO2 [Moles/Vol] 29.0 mmol/L 21.0-32.0 [facility] Globulin (S) [Mass/Vol] 3.9 g/dL 2.2-4.[address] [facility] Urea nitrogen/Creatinine [Mass ratio] 16.5 mg/mg 10-20 [facility] Laboratory - Hematology and Cell countsOrdered By: Dr. Prabhakar on 05-23-2022 Erythrocyte distribution width (RBC) [Entitic vol] 44.1 fL 35.1-43.9 [facility] Erythrocyte distribution width (RBC) [Ratio] 13.5 % 11.6-14.6 [facility] Immature granulocytes/100 WBC (Bld) 0.200 % 0.0-0.9 [facility] Comment on above: IG% - Immature Granu locytes (promyelocytes, myelocytes and metamyelocytes) > 1% indicates that a LEFT SHIFT is Present. MCH (RBC) [Entitic mass] 27.7 pg 27.0-32.0 [facility] Nucleated RBC/100 WBC (Bld) [Ratio] 0 % 0-5 [facility] MCHC Auto (RBC) [Mass/Vol]Or dered By: Dr. Prabhakar on 05-23-2022 MCHC (RBC) [Mass/Vol] 31.3 g/dL 32-36 [facility] Nitrite Test strip Ql (U)Ord ered By: Dr. Prabhakar on 05-23-2022 Nitrite Ql (U) Negative Negative [facility] No Panel InformationOrdered By: Dr. Prabhakar on 05-23-2022 Estimated GFR (MDRD) Amer 65 mL/min >60 [facility] Comment on above: GFR Calc Estimated GFR (MDRD) Non-Af Amer 53 mL/min >60 [facility] Comment on above: Non- GFR Calc Prostate Specific Antigen Screen 2.63 ng/mL 0.00-4.00 [facility] Comment on above: This test was perfor med using the TPSA assay method for the[employer] chemistry system. Values obtained with differentassay methods cannot be used interchangably.When changing PSA assays in the course of monitoring apatient, additional sequential testing should be carriedout to confirm baseline values. Platelets bldOrdered By: Dr. Prabhakar on 05-23-2022 Platelets (Bld) [#/Vol] 235 10*3/uL 150-450 [facility] Protein Test strip Ql (U)Ord ered By: Dr. Prabhakar on 05-23-2022 Protein Ql (U) 15 mg/dl Negative [facility] Serum or plasma albumin red urement (mass/volume)Ordered By: Dr. Prabhakar on 05-23-2022 Albumin [Mass/Vol] 3.4 g/dL 3.2-5.0 [facility] Serum or plasma albumin/glob ulin mass ratioOrdered By: Dr. Prabhakar on 05-23-2022 Albumin/Globulin [Mass ratio] 0.9 {ratio} 0.9-2.4 [facility] Serum or plasma calcium red urement (mass/volume)Ordered By: Dr. Prabhakar on 05-23-2022 Calcium [Mass/Vol] 9.0 mg/dL 8.5-10.1 [facility] Serum or plasma cholesterol in HDL measurement (mass/volume)Ordered By: Dr. Prabhakar on 05-23-2022 Cholesterol in HDL [Mass/Vol] 46 mg/dL >40 [facility] Comment on above: The drugs N-Acetylcy steine and Metamizole may falsely depress this assay. Reference Range HDL <40 mg/dL Low HDL Cholesterol HDL >or= 60 mg/dL High HDL Cholesterol Serum or plasma cholesterol in VLDL measurement (mass/volume)Ordered By: Dr. Prabhakar on 05-23-2022 Cholesterol in VLDL [Mass/Vol] 14 mg/dL 5-40 [facility] Serum or plasma creatinine m easurement (mass/volume)Ordered By: Dr. Prabhakar on 05-23-2022 Creatinine [Mass/Vol] 1.39 mg/dL 0.70-1.30 [facility] Comment on above: The validity of the calculated GFR & GFRAA in patients over 70 years has not been determined. Clinical correlation is essential. Serum or plasma low density lipoprotein (LDL) cholesterol measurement (mass/volume)Ordered By: Dr. Prabhakar on 05-23-2022 Cholesterol in LDL [Mass/Vol] 134 mg/dL 0-130 [facility] Serum or plasma urea nitroge n measurement (mass/volume)Ordered By: Dr. Prabhakar on 05-23-2022 Urea nitrogen [Mass/Vol] 23 mg/dL 7-18 [facility] Thin prep Papanicolaou smear with manual screeningOrdered By: Dr. Prabhakar on 05-23-2022 Thin prep Papanicolaou smear with manual screening 16 U/L 15-37 [facility] Thin prep Papanicolaou smear with manual screening 6 5-15 [facility] Urine blood detectionOrdered By: Dr. Prabhakar on 05-23-2022 RBC Ql (U) 10 /ul Negative [facility] Urine clarityOrdered By: Dr. Prabhakar on 05-23-2022 Clarity (U) Clear Clear [facility] Urine color determinationOrd ered By: Dr. Prabhakar on 05-23-2022 Color (U) Yellow Yellow [facility] Urine glucose detectionOrder ed By: Dr. Prabhakar on 05-23-2022 Glucose Ql (U) Normal mg/dl Normal [facility] Urine leukocyte esterase det ection by dipstickOrdered By: Dr. Prabhakar on 05-23-2022 Leukocyte esterase Test strip Ql (U) Negative Negative [facility] Urine pHOrdered By: Dr. Erika guillen on 05-23-2022 pH (U) 5.0 [pH] 5.0 - 8.0 [facility] Urine specific gravity measu rementOrdered By: Dr. Prabhakar on 05-23-2022 Specific gravity (U) [Rel density] 1.020 1.002-1.030 [facility] Urobilinogen Auto test strip Ql (U)Ordered By: Dr. Prabhakar on 05-23-2022 Urobilinogen Ql (U) Normal mg/dl Normal [facility] Whole blood hemoglobin A1c/t otal hemoglobin ratio (mass fraction)Ordered By: Dr. Prabhakar on 05-23-2022 HbA1c (Bld) [Mass fraction] 6.1 % 3.8-5.6 [facility] Comment on above: Normal < 5.7 % Predi abetic 5.7 - 6.4 % Diabetic >or= 6.5 % Please note range changes. CNCOon 03-31-2019 [facility]CO Letter Text Normal [facility] Encounters Encounter Date Encounter Type Care Provider Facility Start: 11-30-2024 ambulatory [facility] Facility: [facility] Start: 11-29-2024 ambulatory [facility] Facility: [facility] Start: 06-09-2024 End: 06-09-2024 ambulatory [facility] Facility:[facility] Start: 06-01-2024 End: 06-01-2024 ambulatory [facility] Facility:[facility] Start: 12-02-2023 End: 12-02-2023 ambulatory [facility] Facility:[facility] Start: 10-07-2023 ambulatory [facility] Facility: [facility] Start: 07-04-2023 End: 07-04-2023 ambulatory [facility] Work Phone: Start: 07-04-2023 End: 07-04-2023 Patient encounter procedure [facility] Work Phone: Start: 07-04-2023 End: 07-04-2023 ambulatory [facility] Facility:[facility] Start: 05-29-2023 End: 05-29-2023 ambulatory [facility] Work Phone: Start: 05-29-2023 End: 05-29-2023 Patient encounter procedure [facility], [place] Work Phone: Start: 10-03-2022 End: 10-03-2022 ambulatory [facility] Work Phone: Start: 10-03-2022 End: 10-03-2022 Patient encounter procedure [facility], [facility] Start: 08-30-2022 End: 08-30-2022 Patient encounter procedure [facility] Start: 06-08-2022 End: 06-08-2022 ambulatory [facility] Work Phone: Start: 06-08-2022 End: 06-08-2022 Patient encounter procedure [facility], [facility] [facility] Start: 06-05-2022 End: 06-05-2022 ambulatory [facility] Work Phone: Start: 06-05-2022 End: 06-05-2022 [facility] Start: 05-23-2022 End: 05-23-2022 Patient encounter procedure [facility] [place] [facility] Start: 04-09-2022 End: 04-09-2022 ambulatory [facility] Work Phone: Start: 04-09-2022 End: 04-09-2022 Discharged Recurring [facility] Procedures Date Procedure Procedure Detail Performing Clinician Start: 08-30-2022 US urinary tract Plan of Treatment Date Care Activity Detail Author Start: 06-05-2022 Serum immunofixation [facility] Start: 06-05-2022 Urine protein electrophoresis [facility] IgA [Mass/volume] in Serum or Plasma [facility] IgG [Mass/volume] in Serum or Plasma [facility] IgM [Mass/volume] in Serum or Plasma [facility] Immunizations Immunization Date Immunization Notes Care Provider Fa cility 07-06-2020 Covid (Moderna) [facility] 06-08-2020 Covid ([facility] Payers Date Payer Category Payer Medicare [id number] 300 [id number] 2022 Self-pay [id number] 2022 Unknown [id number] Unknown [id number] 2.16.8 [id number] Unknown [id number] 2.16.8 [id number] Unknown [id number] 2.16.8 [id number] Unknown [id number] 2.16.8 [id number] Unknown [id number] 2.16.8 [id number] Unknown [id number] 2.16.8 [id number] Unknown [id number] 2.16.8 [id number] Unknown [id number] 2.16.8 [id number] Social History Date Type Detail Facility Start: 01-22-2020 End: 01-22-2020 Tobacco smoking status MIIS Unknown if ever smoked [facility] Start: 1950 Sex Assigned At Male W [facility] Evaluation note Note Date & Type Note Facility Evaluation note No assessment information availa ble [facility] Work Phone: Summary Purpose Family History No Family History Records FoundNo Family History Records Found Advance Directives No Advanced Directives Records Found Advance Directive Response Recorded Date/ Time Living Will Yes January 21 0 11:58am Power of Water Jet Operator Yes January 21 11:58am Advance Directive Response Recorded Date/ Time Living Will Yes January 21 0 12:58pm Power of Water Jet Operator Yes January 21 12:58pm Chief Complaint and Reason for Visit Chief Complaint BALANCE/RX HERE Chief Complaint CKD3 Chief Complaint Sleep apnea, unspeci fied Additional Source Comments (unrecognized sect ion and content) No Status Records FoundNo Status Records Found INFORMATION SOURCE (unrecogn ized section and content) DATE CREATED AUTHOR 04/01/2019 [facility] DATE CREATED AUTHOR AUTHOR'S ABDULAZIZ ATDEANNA 06/26/2024 [facility] Goals (unrecognized section and [...] Primary Care Provider Active Dr. Rosa Maria Auqino , DO Attending Provider, Referring P miguelina [...] BE BASED ON THE PRIMARY CLINICAL RECORDS. [facility] [employer] [facility]. provides no warranty or guarantee of the accuracy or completeness of information in this document.
== END | disposition home or self-care (01) ==
LOC: MTLAB 11:30
PROVIDERS: PCP Family Medicine; Referring Provider Family Medicine; Visit Provider Family Medicine
DX: R73.03 Prediabetes (principal); N18.31 Chronic kidney disease, stage 3a; I12.9 Hypertensive chronic kidney disease with stage 1 through stage 4 chronic kidney disease, or unspecified chronic kidney disease; D64.9 Anemia, unspecified
CPT/HCPCS: 36415; 80053; 80061; 83036; 85025

== ENCOUNTER → 2024-12-07 | Outpatient (CLI) | payer MEDICARE, BC, SELFPAY ==
[2024-12-07 18:23] LABS: Ferritin 38 ng/mL (37-417); Iron 11 ug/dL (65-175); LDH 170 U/L (87-241)
--- OUTSIDE RECORDS SUMMARY | 2024-12-07 23:31 | XMS RPT_ITS | CCD ---
Author Organization [facility] Care Team Providers Care Manager Review Name Role Phone Dr. Donta Prabhakar DO Primary Care Provider [phone] Dr. Donta Prabhakar DO Attending Provider [phone] Dr. Donta Prabhakar DO Referring Provider Donta Prabhakar Referring Unavailable Donta Prabhakar Attending Unavailable Donta Prabhakar Primary Care Unavailable Donta Prabhakar Attending Unavailable Donta Prabhakar Primary Care Unavailable Donta Prabhakar Primary Care Unavailable Donta Prabhakar Attending Unavailable Donta Prabhakar Referring Unavailable Donta Prabhakar Attending Unavailable Donta Prabhakar Primary Care Unavailable Donta Prabhakar Referring Unavailable Donta Prabhakar Attending Unavailable Donta Prabhakar Primary Care Unavailable Medications Current Medications Medication Drug Class(es) Dates Sig (Normalized) Sig (Original) cholecalciferol 0.05 mg oral capsule (7 sources) Vitamin D Start: 01-22-2020 take 1 capsule by mouth once daily Cholecalciferol (Vitamin D3) 2,000 UNIT capsule Active 2000 U PO DAILY January 22, 2020 12:00am supplement Problems Problem Classification Problem Date Documented Da te Episodic/Chronic Diabetes mellitus without complication (1 source) Prediabetes; Translations: [Prediabetes] Onset: 12-04-2024 Episodic Hypertension with complications and secondary hypertension (1 source) Hypertensive chronic kidney disease with stage 1 through stage 4 chronic kidney disease, or unspecified chronic kidney disease; Translations: [Hypertensive chronic kidney disease with stage 1 through stage 4 chronic kidney disease, or unspecified chronic kidney disease] Onset: 06-24-2024 Chronic Other screening for suspected conditions (not mental disorders or infectious disease) (7 sources) Patient encounter status; Translations: [Encounter for screening for malignant neoplasm of intestinal tract, unspecified] 01-26-2020 Episodic Results Test Name Value Interpretation Reference Range Facility Absolute lymphocyte countOrd ered By: Donta Prabhakar on 11-30-2024 Lymphocytes Auto (Unsp spec) [#/Vol] 1.59 10*3/uL 0.83-4.[address] [facility] Absolute neutrophil countOrd ered By: Donta JosephVanna on 11-30-2024 Neutrophils (Bld) [#/Vol] 10.4 10*3/uL High 2.0-7.[address] [facility] Anion gap in Serum or Plasma Ordered By: Donta Prabhakar on 11-30-2024 Anion gap [Moles/Vol] 12 mmol/L 5-15 [facility] Automated lymphocyte count a s percentage of total leukocytesOrdered By: Donta JosephVanna on 11-30-2024 Lymphocytes/100 WBC Auto (Unsp spec) 12.4 % Low 19-[address] [facility] BUN/creatinine ratioOrdered By: Donta JosephVanna on 11-30-2024 Urea nitrogen/Creatinine [Mass ratio] 20.7 mg/mg High 10-[address] [facility] Basophil percentageOrdered B y: Donta Prabhakar on 11-30-2024 Basophils/100 WBC (Bld) 0.9 % 0-1 [facility] Bilirubin, totalOrdered By: Donta Vanna on 11-30-2024 Bilirubin [Mass/Vol] mg/dL 0.00-1.30 [facility] CBC W/Diff, Automatedon 11-20 Absolute Lymph 1.59 X10 3/uL Normal 0.83-4.[address] [facility] Comment on above: Performed By: #### L 500.4100, L501.9985, L500.4050, L100.0100 #### [facility] [address] [place], [address] Absolute Neut 10.4 X10 3/uL High 2.0-7.[address] [facility] Comment on above: Performed By: #### L 500.4100, L501.9985, L500.4050, L100.0100 #### [facility] [address] [place], [address] Basophils/100 WBC (Bld) 0.9 % Normal 0-1 [facility] Comment on above: Performed By: #### L 500.4100, L501.9985, L500.4050, L100.0100 #### [facility] [address] [place], [address] Eosinophils/100 WBC (Bld) 0.5 % Normal 0-[address] [facility] Comment on above: Performed By: #### L 500.4100, L501.9985, L500.4050, L100.0100 #### [facility] [address] [place], [address] Erythrocyte distribution width (RBC) [Ratio] 16.3 % High 11.6-14.[address] [facility] Comment on above: Performed By: #### L 500.4100, L501.9985, L500.4050, L100.0100 #### [facility] [address] [place], [address] Hematocrit (Bld) [Volume fraction] 32.1 % Low 40-[address] [facility] Comment on above: Performed By: #### L 500.4100, L501.9985, L500.4050, L100.0100 #### [facility] [address] [place], [address] Hemoglobin (Bld) [Mass/Vol] 9.1 g/dL Low 13.0-16.[address] [facility] Comment on above: Performed By: #### L 500.4100, L501.9985, L500.4050, L100.0100 #### [facility] [address] [place], [address] IG% 0.300 Normal 0.0-0.[address] [facility] Comment on above: Result Comment: IG% - Immature Granulocytes (promyelocytes, myelocytes and metamyelocytes) > 1% indicates that a LEFT SHIFT is Present. Performed By: #### L 500.4100, L501.9985, L500.4050, L100.0100 #### [facility] [address] [place], [address] Lymphocytes/100 WBC (Bld) 12.4 % Low 19-[address] [facility] Comment on above: Performed By: #### L 500.4100, L501.9985, L500.4050, L100.0100 #### [facility] [address] [place], [address] MCH (RBC) [Entitic mass] 21.4 pg Low 27.0-32.[address] [facility] Comment on above: Performed By: #### L 500.4100, L501.9985, L500.4050, L100.0100 #### [facility] [address] [place], [address] MCHC (RBC) [Mass/Vol] 28.3 g/dL Low 32-36 [facility] Comment on above: Performed By: #### L 500.4100, L501.9985, L500.4050, L100.0100 #### [facility] [address] [place], [address] MCV (RBC) [Entitic vol] 75.4 fL Low 80-94 [facility] Comment on above: Performed By: #### L 500.4100, L501.9985, L500.4050, L100.0100 #### [facility] [address] [place], [address] Monocytes/100 WBC (Bld) 5.4 % Normal 0-10 [facility] Comment on above: Performed By: #### L 500.4100, L501.9985, L500.4050, L100.0100 #### [facility] [address] [place], [address] Neutrophils/100 WBC (Bld) 80.5 % High 47-[address] [facility] Comment on above: Performed By: #### L 500.4100, L501.9985, L500.4050, L100.0100 #### [facility] [address] [place], [address] Nucleated RBC (Bld) [#/Vol] 0 10*3/uL Normal 0-[address] [facility] Comment on above: Performed By: #### L 500.4100, L501.9985, L500.4050, L100.0100 #### [facility] [address] [place], [address] Platelet mean volume (Bld) [Entitic vol] 11.1 fL Normal 6.2-12.[address] [facility] Comment on above: Performed By: #### L 500.4100, L501.9985, L500.4050, L100.0100 #### [facility] [address] [place], [address] Platelets (Bld) [#/Vol] 334 10*3/uL Normal 150-[address] [facility] Comment on above: Performed By: #### L 500.4100, L501.9985, L500.4050, L100.0100 #### [facility] [address] [place], [address] RBC (Bld) [#/Vol] 4.26 10*6/uL Low 4.6-6.2 [facility] Comment on above: Performed By: #### L 500.4100, L501.9985, L500.4050, L100.0100 #### [facility] [address] [place], [address] RDW SD 44.4 fl High 35.1-43.[address] [facility] Comment on above: Performed By: #### L 500.4100, L501.9985, L500.4050, L100.0100 #### [facility] [address] [place], [address] WBC (Bld) [#/Vol] 12.9 10*3/uL High 4.4-11.0 [facility] Comment on above: Performed By: #### L 500.4100, L501.9985, L500.4050, L100.0100 #### [facility] [address] [place], [address] Calculated very low density lipoprotein (VLDL) cholesterol measurementOrdered By: Donta Prabhakar on 11-30-2024 Calculated very low density lipoprotein (VLDL) cholesterol measurement 11 mg/dL 5-[address] [facility] Carbon dioxide, total [Moles /volume] in Central venous bloodOrdered By: Donta Prabhakar on 11-30-2024 CO2 [Moles/Vol] 22.3 mmol/L 21.0-32.[address] [facility] Chloride assayOrdered By: Jatinder Prabhakar on 11-30-2024 Chloride [Moles/Vol] 105 mmol/L 98-108 [facility] Comprehensive Metabolic Prof ilon 11-30-2024 Albumin [Mass/Vol] 3.7 g/dL Normal 3.4-4.8 [facility] Comment on above: Performed By: #### L 500.4100, L501.9985, L500.4050, L100.0100 #### [facility] [address] [place], [address] Albumin/Globulin [Mass ratio] 1.2 {ratio} Normal 0.9-2.[address] [facility] Comment on above: Performed By: #### L 500.4100, L501.9985, L500.4050, L100.0100 #### [facility] [address] [place], [address] ALK PHOS 87 U/L Normal 40-[address] [facility] Comment on above: Performed By: #### L 500.4100, L501.9985, L500.4050, L100.0100 #### [facility] [address] [place], [address] ALT [Catalytic activity/Vol] 9 U/L Normal <=[address] [facility] Comment on above: Performed By: #### L 500.4100, L501.9985, L500.4050, L100.0100 #### [facility] [address] [place], [address] AST [Catalytic activity/Vol] 14 U/L Normal <=[address] [facility] Comment on above: Performed By: #### L 500.4100, L501.9985, L500.4050, L100.0100 #### [facility] [address] [place], [address] BUN/CRE 20.7 RATIO High 10-[address] [facility] Comment on above: Performed By: #### L 500.4100, L501.9985, L500.4050, L100.0100 #### [facility] [address] [place], [address] Calcium [Mass/Vol] 9.0 mg/dL Normal 7.6-11.0 [facility] Comment on above: Performed By: #### L 500.4100, L501.9985, L500.4050, L100.0100 #### [facility] [address] [place], [address] Chloride [Moles/Vol] 105 mmol/L Normal 98-108 [facility] Comment on above: Performed By: #### L 500.4100, L501.9985, L500.4050, L100.0100 #### [facility] [address] [place], [address] CO2 [Moles/Vol] 22.3 mmol/L Normal 21.0-32.[address] [facility] Comment on above: Performed By: #### L 500.4100, L501.9985, L500.4050, L100.0100 #### [facility] [address] [place], [address] Creatinine [Mass/Vol] 1.38 mg/dL High 0.70-1.20 [facility] Comment on above: Performed By: #### L 500.4100, L501.9985, L500.4050, L100.0100 #### [facility] [address] [place], [address] GAP 12 Normal 5-[address] [facility] Comment on above: Performed By: #### L 500.4100, L501.9985, L500.4050, L100.0100 #### [facility] [address] [place], [address] GFR/1.73 sq M.predicted among non-blacks MDRD (S/P/Bld) [Vol rate/Area] 54 mL/min/{1.73_m2} Low >60 [facility] Comment on above: Result Comment: mL/m in/1.73m2 CKD-EPI Creatinine Equation (2020) Performed By: #### L 500.4100, L501.9985, L500.4050, L100.0100 #### [facility] [address] [place], [address] Globulin (S) [Mass/Vol] 3.1 g/dL Normal 2.2-4.2 [facility] Comment on above: Performed By: #### L 500.4100, L501.9985, L500.4050, L100.0100 #### [facility] [address] [place], [address] Glucose [Mass/Vol] 117 mg/dL High 70-99 [facility] Comment on above: Performed By: #### L 500.4100, L501.9985, L500.4050, L100.0100 #### [facility] [address] [place], [address] Potassium [Moles/Vol] 4.1 mmol/L Normal 3.3-5.1 [facility] Comment on above: Performed By: #### L 500.4100, L501.9985, L500.4050, L100.0100 #### [facility] [address] [place], [address] Sodium [Moles/Vol] 139 mmol/L Normal 133-145 [facility] Comment on above: Performed By: #### L 500.4100, L501.9985, L500.4050, L100.0100 #### [facility] [address] [place], [address] T BILI < 0.15 Normal 0.00-1.[address] [facility] Comment on above: Performed By: #### L 500.4100, L501.9985, L500.4050, L100.0100 #### [facility] [address] [place], [address] T PROT 6.8 g/dL Normal 5.9-8.[address] [facility] Comment on above: Performed By: #### L 500.4100, L501.9985, L500.4050, L100.0100 #### [facility] [address] [place], [address] Urea nitrogen [Mass/Vol] 29 mg/dL High 4-[address] [facility] Comment on above: Performed By: #### L 500.4100, L501.9985, L500.4050, L100.0100 #### [facility] [address] [place], [address] Eosinophil percentageOrdered By: Donta Prabhakar on 11-30-2024 Eosinophils/100 WBC (Bld) 0.5 % 0-[address] [facility] Erythrocyte distribution wid th ratioOrdered By: Donta Prabhakar on 11-30-2024 Erythrocyte distribution width (RBC) [Ratio] 16.3 % High 11.6-14.[address] [facility] Erythrocyte distribution wid th standard deviationOrdered By: Donta Prabhakar on 11-30-2024 Erythrocyte distribution width (RBC) [Ratio] 44.4 fl High 35.1-43.[address] [facility] Glomerular filtration rate ( GFR) estimation/1.73 sq m using serum, plasma, or whole bOrdered By: Donta Prabhakar on 11-30-2024 GFR/1.73 sq M.predicted among non-blacks MDRD (S/P/Bld) [Vol rate/Area] 54 mL/min/{1.73_m2} Low >60 [facility] Comment on above: mL/min/1.73m2 CKD-EP I Creatinine Equation (2020) Hematocrit Auto (Bld) [Volum e fraction]Ordered By: Donta Prabhakar on 11-30-2024 Hematocrit (Bld) [Volume fraction] 32.1 % Low 40-[address] [facility] Hemoglobin A1con 11-30-2024 HbA1c (Bld) [Mass fraction] 6.0 % High <=5.[address] [facility] Comment on above: Result Comment: Norm al < 5.7 % Prediabetic 5.7 - 6.4 % Diabetic >or= 6.5 % Please note range changes. Performed By: #### L 500.4050, L503.0105, L509.1000, L100.0100, L501.2300, L501.9985, L500.4100 #### [facility] [address] [place] [address]. [place], [address] Hemoglobin A1c percentageOrd ered By: Donta Prabhakar on 11-30-2024 HbA1c (Bld) [Mass fraction] 6.0 % High <5.[address] [facility] Comment on above: Normal < 5.7 % Predi abetic 5.7 - 6.4 % Diabetic >or= 6.5 % Please note range changes. Hemoglobin measurementOrdere d By: Donta Prabhakar on 11-30-2024 Hemoglobin (Bld) [Mass/Vol] 9.1 g/dL Low 13.0-16.[address] [facility] Immature granulocytes/100 WB C Auto (Bld)Ordered By: Donta Prabhakar on 11-30-2024 Immature granulocytes/100 WBC (Bld) 0.300 % 0.0-0.[address] [facility] Comment on above: IG% - Immature Granu locytes (promyelocytes, myelocytes and metamyelocytes) > 1% indicates that a LEFT SHIFT is Present. LDL calc ser/plasOrdered By: Donta JosephVanna on 11-30-2024 Cholesterol in LDL [Mass/Vol] 103 mg/dL [facility] Comment on above: Mukprcywmu=049-953 m g/dL & Higher Rfjg=109 mg/dL or greaterFriedwald Equation for LDL-C Laboratory - Chemistry and C hemistry - challengeOrdered By: Donta JosephVanna on 11-30-2024 AST [Catalytic activity/Vol] 14 U/L <[address] [facility] Lipid Profileon 11-30-2024 CHOL:HDL 3.[address] [facility] Comment on above: Performed By: #### L 500.4100, L501.9985, L500.4050, L100.0100 #### [facility] [address] [facility] [place], [address] Cholesterol [Mass/Vol] 160 mg/dL Normal <=200 [facility] Comment on above: Result Comment: Chol esterol level, Desirable <200 mg/dL Borderline high cholesterol 200-239 mg/dL High cholesterol >=240 mg/dL Recommendations of the NCEP Adult Treatment Panel for the following risk-cutoff thresholds for the [place] population. Performed By: #### L 500.4100, L501.9985, L500.4050, L100.0100 #### [facility] [address] [place], [address] Cholesterol in HDL [Mass/Vol] 46 mg/dL Normal [facility] Comment on above: Result Comment: [place] on[place] Cholesterol Education Program (NCEP) guidelines: <40 mg/dL: Low HDL-cholesterol (major risk factor for CHD) >= 60 mg/dL: High HDL-cholesterol (negative risk factor for CHD) HDL-cholesterol is affected by a number of factors, e.g. smoking, exercise, hormones, sex and age. Performed By: #### L 500.4100, L501.9985, L500.4050, L100.0100 #### [facility] [address] [place], [address] Cholesterol in LDL [Mass/Vol] 103 mg/dL Normal [facility] Comment on above: Result Comment: Bord gaysad=170-652 mg/dL Higher Wncc=596 mg/dL or greater Friedwald Equation for LDL-C Performed By: #### L 500.4100, L501.9985, L500.4050, L100.0100 #### [facility] [address] [place], [address] Cholesterol in VLDL [Mass/Vol] 11 mg/dL Normal 5-[address] [facility] Comment on above: Performed By: #### L 500.4100, L501.9985, L500.4050, L100.0100 #### [facility] [address] [place], [address] Triglyceride [Mass/Vol] 53 mg/dL Normal [facility] Comment on above: Result Comment: The drugs N-Acetylcysteine and Metamizole may falsely depress this assay. Normal range: <150 mg/dL Borderline High: 150-199 mg/dL High: 200-499 mg/dL Very High: >500 mg/dL Performed By: #### L 500.4100, L501.9985, L500.4050, L100.0100 #### [facility] [address] [place], [address] MCV (mean corpuscular volume ) determinationOrdered By: Donta Prabhakar on 11-30-2024 MCV (RBC) [Entitic vol] 75.4 fL Low 80-94 [facility] Mean corpuscular hemoglobin (MCH) determinationOrdered By: Donta Prabhakar on 11-30-2024 MCH (RBC) [Entitic mass] 21.4 pg Low 27.0-32.[address] [facility] Mean corpuscular hemoglobin concentration (MCHC) determinationOrdered By: Donta Prabhakar on 11-30-2024 MCHC (RBC) [Mass/Vol] 28.3 g/dL Low 32-36 [facility] Mean platelet volume determi nationOrdered By: Donta Prabhakar on 11-30-2024 Platelet mean volume (Bld) [Entitic vol] 11.1 fL 6.2-12.[address] [facility] Monocyte percentageOrdered B y: Donta Prabhakar on 11-30-2024 Monocytes/100 WBC (Bld) 5.4 % 0-10 [facility] Neutrophil percentageOrdered By: Donta Prabhakar on 11-30-2024 Neutrophils/100 WBC (Bld) 80.5 % High 47-[address] [facility] Nucleated red blood cell per centageOrdered By: Donta Prabhakar on 11-30-2024 Nucleated RBC/100 WBC (Bld) [Ratio] 0 % 0-[address] [facility] Platelet countOrdered By: Jatinder Prabhakar on 11-30-2024 Platelets (Bld) [#/Vol] 334 10*3/uL 150-[address] [facility] Potassium measurement (mass/ volume)Ordered By: Donta Prabhakar on 11-30-2024 Potassium (Unsp spec) [Mass/Vol] 4.1 mmol/L 3.3-5.[address] [facility] RBC Auto (Bld) [#/Vol]Ordere d By: Donta Prabhakar on 11-30-2024 RBC (Bld) [#/Vol] 4.26 10*6/uL Low 4.6-6.2 [facility] Screening total cholesterol/ high density lipoprotein (HDL) cholesterol ratioOrdered By: Donta Prabhakar on 11-30-2024 Cholesterol.total/Choleste rol in HDL [Mass ratio] 3.46 {ratio} [facility] Serum creatinine measurement (mass/volume)Ordered By: Donta Prabhakar on 11-30-2024 Creatinine [Mass/Vol] 1.38 mg/dL High 0.70-1.20 [facility] Serum globulin measurementOr dered By: Donta Prabhakar on 11-30-2024 Globulin (S) [Mass/Vol] 3.1 g/dL 2.2-4.2 [facility] Serum glucose measurement (m ass/volume)Ordered By: Donta Prabhakar on 11-30-2024 Glucose [Mass/Vol] 117 mg/dL High 70-99 [facility] Serum or plasma alanine alexis otransferase (ALT) measurementOrdered By: Donta Prabhakar on 11-30-2024 ALT [Catalytic activity/Vol] 9 U/L <[address] [facility] Serum or plasma albumin red urement (mass/volume)Ordered By: Donta Prabhakar on 11-30-2024 Albumin [Mass/Vol] 3.7 g/dL 3.4-4.8 [facility] Serum or plasma albumin/glob ulin mass ratioOrdered By: Donta Prabhakar on 11-30-2024 Albumin/Globulin [Mass ratio] 1.2 {ratio} 0.9-2.[address] [facility] Serum or plasma alkaline chi sphatase measurementOrdered By: Donta Prabhakar on 11-30-2024 ALP [Catalytic activity/Vol] 87 U/L 40-[address] [facility] Serum or plasma calcium red urement (mass/volume)Ordered By: Donta Prabhakar on 11-30-2024 Calcium [Mass/Vol] 9.0 mg/dL 7.6-11.0 [facility] Serum or plasma cholesterol in HDL measurement (mass/volume)Ordered By: Donta Prabhakar on 11-30-2024 Cholesterol in HDL [Mass/Vol] 46 mg/dL >[address] [facility] Comment on above: National Cholesterol Education Program (NCEP) guidelines:<40 mg/dL: Low HDL-cholesterol (major risk factor for CHD)>= 60 mg/dL: High HDL-cholesterol (negative risk factor for CHD)HDL-cholesterol is affected by a number of factors, e.g. smoking, exercise, hormones, sex and age. Serum or plasma cholesterol measurement (mass/volume)Ordered By: Donta Prabhakar on 11-30-2024 Cholesterol [Mass/Vol] 160 mg/dL <201 [facility] Comment on above: Cholesterol level, D esirable <200 mg/dLBorderline high cholesterol 200-239 mg/dLHigh cholesterol >=240 mg/dLRecommendations of the NCEP Adult Treatment Panel for the following risk-cutoff thresholds for the [place] population. Serum or plasma urea nitroge n measurement (mass/volume)Ordered By: Donta Prabhakar on 11-30-2024 Urea nitrogen [Mass/Vol] 29 mg/dL High 4-[address] [facility] Sodium levelOrdered By: Donta Prabhakar on 11-30-2024 Sodium [Moles/Vol] 139 mmol/L 133-145 [facility] Total proteinOrdered By: Ivonne cool Vanna on 11-30-2024 Protein [Mass/Vol] 6.8 g/dL 5.9-8.4 [facility] Triglycerides measurementOrd ered By: Donta Prabhakar on 11-30-2024 Triglyceride [Mass/Vol] 53 mg/dL <199 [facility] Comment on above: The drugs N-Acetylcy steine and Metamizole may falsely depress this assay. Normal range: <150 mg/dLBorderline High: 150-199 mg/dLHigh: 200-499 mg/dLVery High: >500 mg/dL White blood cell (WBC) count Ordered By: Donta Prabhakar on 11-30-2024 WBC (Bld) [#/Vol] 12.9 10*3/uL High 4.4-11.0 [facility] PSA,Total - Annual Screenon 06-09-2024 PSA,TOT SCREEN 2.38 ng/mL Normal 0.00-4.[address] [facility] Comment on above: Result Comment: This test was performed using the TPSA assay method for the [employer] chemistry system. Values obtained with different assay methods cannot be used interchangably. When changing PSA assays in the course of monitoring a patient, additional sequential testing should be carried out to confirm baseline values. Performed By: #### L 500.4050, L503.0105, L509.1000, L100.0100, L501.2300, L501.9985, L500.4100 #### [facility] [address] [place], [place], [id number] CBC W/Diff, Automatedon 05-23 Absolute Lymph 1.81 X10 3/uL Normal 0.83-4.[address] [facility] Comment on above: Performed By: #### L 500.4050, L503.0105, L509.1000, L100.0100, L501.2300, L501.9985, L500.4100 #### [facility] [address] [place], [address] Absolute Neut 7.6 X10 3/uL Normal 2.0-7.[address] [facility] Comment on above: Performed By: #### L 500.4050, L503.0105, L509.1000, L100.0100, L501.2300, L501.9985, L500.4100 #### [facility] [address] [place], [address] Basophils/100 WBC (Bld) 0.7 % Normal 0-1 [facility] Comment on above: Performed By: #### L 500.4050, L503.0105, L509.1000, L100.0100, L501.2300, L501.9985, L500.4100 #### [facility] [address] [place], [address] Eosinophils/100 WBC (Bld) 1.2 % Normal 0-[address] [facility] Comment on above: Performed By: #### L 500.4050, L503.0105, L509.1000, L100.0100, L501.2300, L501.9985, L500.4100 #### [facility] [address] [place], [address] Erythrocyte distribution width (RBC) [Ratio] 15.0 % High 11.6-14.[address] [facility] Comment on above: Performed By: #### L 500.4050, L503.0105, L509.1000, L100.0100, L501.2300, L501.9985, L500.4100 #### [facility] [address] [place], [address] Hematocrit (Bld) [Volume fraction] 38.5 % Low 40-[address] [facility] Comment on above: Performed By: #### L 500.4050, L503.0105, L509.1000, L100.0100, L501.2300, L501.9985, L500.4100 #### [facility] [address] [place] [place], [address] Hemoglobin (Bld) [Mass/Vol] 11.3 g/dL Low 13.0-16.[address] [facility] Comment on above: Performed By: #### L 500.4050, L503.0105, L509.1000, L100.0100, L501.2300, L501.9985, L500.4100 #### [facility] [address] [place], [address] IG% 0.200 Normal 0.0-0.[address] [facility] Comment on above: Result Comment: IG% - Immature Granulocytes (promyelocytes, myelocytes and metamyelocytes) > 1% indicates that a LEFT SHIFT is Present. Performed By: #### L 500.4050, L503.0105, L509.1000, L100.0100, L501.2300, L501.9985, L500.4100 #### [facility] [address] [facility] [place], [address] Lymphocytes/100 WBC (Bld) 17.4 % Low 19-[address] [facility] Comment on above: Performed By: #### L 500.4050, L503.0105, L509.1000, L100.0100, L501.2300, L501.9985, L500.4100 #### [facility] [address] [place], [address] MCH (RBC) [Entitic mass] 23.4 pg Low 27.0-32.[address] [facility] Comment on above: Performed By: #### L 500.4050, L503.0105, L509.1000, L100.0100, L501.2300, L501.9985, L500.4100 #### [facility] [address] [place], [address] MCHC (RBC) [Mass/Vol] 29.4 g/dL Low 32-36 [facility] Comment on above: Performed By: #### L 500.4050, L503.0105, L509.1000, L100.0100, L501.2300, L501.9985, L500.4100 #### [facility] [address] [place], [address] MCV (RBC) [Entitic vol] 79.9 fL Low 80-94 [facility] Comment on above: Performed By: #### L 500.4050, L503.0105, L509.1000, L100.0100, L501.2300, L501.9985, L500.4100 #### [facility] [address] [place], [address] Monocytes/100 WBC (Bld) 7.3 % Normal 0-10 [facility] Comment on above: Performed By: #### L 500.4050, L503.0105, L509.1000, L100.0100, L501.2300, L501.9985, L500.4100 #### [facility] [address] [place], [address] Neutrophils/100 WBC (Bld) 73.2 % High 47-[address] [facility] Comment on above: Performed By: #### L 500.4050, L503.0105, L509.1000, L100.0100, L501.2300, L501.9985, L500.4100 #### [facility] [address] [place], [address] Nucleated RBC (Bld) [#/Vol] 0 10*3/uL Normal 0-[address] [facility] Comment on above: Performed By: #### L 500.4050, L503.0105, L509.1000, L100.0100, L501.2300, L501.9985, L500.4100 #### [facility] [address] [place], [address] Platelet mean volume (Bld) [Entitic vol] 11.1 fL Normal 6.2-12.[address] [facility] Comment on above: Performed By: #### L 500.4050, L503.0105, L509.1000, L100.0100, L501.2300, L501.9985, L500.4100 #### [facility] [address] [place], [address] Platelets (Bld) [#/Vol] 304 10*3/uL Normal 150-[address] [facility] Comment on above: Performed By: #### L 500.4050, L503.0105, L509.1000, L100.0100, L501.2300, L501.9985, L500.4100 #### [facility] [address] [place], [address] RBC (Bld) [#/Vol] 4.82 10*6/uL Normal 4.6-6.2 [facility] Comment on above: Performed By: #### L 500.4050, L503.0105, L509.1000, L100.0100, L501.2300, L501.9985, L500.4100 #### [facility] [address] [place], [address] RDW SD 43.5 fl Normal 35.1-43.[address] [facility] Comment on above: Performed By: #### L 500.4050, L503.0105, L509.1000, L100.0100, L501.2300, L501.9985, L500.4100 #### [facility] [address] [place], [address] WBC (Bld) [#/Vol] 10.4 10*3/uL Normal 4.4-11.0 [facility] Comment on above: Performed By: #### L 500.4050, L503.0105, L509.1000, L100.0100, L501.2300, L501.9985, L500.4100 #### [facility] [address] [place], [address] Comprehensive Metabolic Prof ilon 06-01-2024 Albumin [Mass/Vol] 3.3 g/dL Normal 3.2-5.0 [facility] Comment on above: Performed By: #### L 500.4050, L503.0105, L509.1000, L100.0100, L501.2300, L501.9985, L500.4100 #### [facility] [address] [place], [address] Albumin/Globulin [Mass ratio] 0.8 {ratio} Low 0.9-2.[address] [facility] Comment on above: Performed By: #### L 500.4050, L503.0105, L509.1000, L100.0100, L501.2300, L501.9985, L500.4100 #### [facility] [address] [place], [address] ALK P 95 U/L Normal 45-[address] [facility] Comment on above: Performed By: #### L 500.4050, L503.0105, L509.1000, L100.0100, L501.2300, L501.9985, L500.4100 #### [facility] [address] [place], [address] ALT [Catalytic activity/Vol] 15 U/L Low 16-[address] [facility] Comment on above: Performed By: #### L 500.4050, L503.0105, L509.1000, L100.0100, L501.2300, L501.9985, L500.4100 #### [facility] [address] [place], [address] AST [Catalytic activity/Vol] 12 U/L Low 15-[address] [facility] Comment on above: Performed By: #### L 500.4050, L503.0105, L509.1000, L100.0100, L501.2300, L501.9985, L500.4100 #### [facility] [address] [place], [address] Bilirubin [Mass/Vol] 0.30 mg/dL Normal 0.20-1.00 [facility] Comment on above: Result Comment: For patients on eltrombopag therapy, use of Dimension [place] TBIL is not recommended. Performed By: #### L 500.4050, L503.0105, L509.1000, L100.0100, L501.2300, L501.9985, L500.4100 #### [facility] [address] [place], [address] BUN/CRE 12.8 RATIO Normal 10-[address] [facility] Comment on above: Performed By: #### L 500.4050, L503.0105, L509.1000, L100.0100, L501.2300, L501.9985, L500.4100 #### [facility] [address] [place], [address] CA,Total 9.2 mg/dL Normal 8.5-10.[address] [facility] Comment on above: Performed By: #### L 500.4050, L503.0105, L509.1000, L100.0100, L501.2300, L501.9985, L500.4100 #### [facility] [address] [place], [address] Chloride [Moles/Vol] 105 mmol/L Normal 98-107 [facility] Comment on above: Performed By: #### L 500.4050, L503.0105, L509.1000, L100.0100, L501.2300, L501.9985, L500.4100 #### [facility] [address] [place], [address] CO2 [Moles/Vol] 27.0 mmol/L Normal 21.0-32.[address] [facility] Comment on above: Performed By: #### L 500.4050, L503.0105, L509.1000, L100.0100, L501.2300, L501.9985, L500.4100 #### [facility] [address] [place], [address] Creatinine [Mass/Vol] 1.48 mg/dL High 0.70-1.30 [facility] Comment on above: Result Comment: The validity of the calculated GFR GFRAA in patients over 70 years has not been determined. Clinical correlation is essential. Performed By: #### L 500.4050, L503.0105, L509.1000, L100.0100, L501.2300, L501.9985, L500.4100 #### [facility] [address] [place], [address] EST GFR - AA 60 mL/min Normal >[address] [facility] Comment on above: Result Comment: Afri can [place] GFR Calc Performed By: #### L 500.4050, L503.0105, L509.1000, L100.0100, L501.2300, L501.9985, L500.4100 #### [facility] [address] [place], [address] GAP 7 Normal 5-[address] [facility] Comment on above: Performed By: #### L 500.4050, L503.0105, L509.1000, L100.0100, L501.2300, L501.9985, L500.4100 #### [facility] [address] [place], [address] GFR/1.73 sq M.predicted among non-blacks MDRD (S/P/Bld) [Vol rate/Area] 49 mL/min/{1.73_m2} Low >60 [facility] Comment on above: Result Comment: Non- GFR Calc Performed By: #### L 500.4050, L503.0105, L509.1000, L100.0100, L501.2300, L501.9985, L500.4100 #### [facility] [address] [place], [address] Globulin (S) [Mass/Vol] 4.0 g/dL Normal 2.2-4.2 [facility] Comment on above: Performed By: #### L 500.4050, L503.0105, L509.1000, L100.0100, L501.2300, L501.9985, L500.4100 #### [facility] [address] [place], [address] Glucose [Mass/Vol] 113 mg/dL High 74-106 [facility] Comment on above: Result Comment: Fast ing Glucose result from 100 to 125 mg/dL suggests IMPAIRED HOMEOSTASIS per A.D.A. criteria. Performed By: #### L 500.4050, L503.0105, L509.1000, L100.0100, L501.2300, L501.9985, L500.4100 #### [facility] [address] [place], [address] Potassium [Moles/Vol] 3.8 mmol/L Normal 3.5-5.1 [facility] Comment on above: Performed By: #### L 500.4050, L503.0105, L509.1000, L100.0100, L501.2300, L501.9985, L500.4100 #### [facility] [address] [place], [address] Sodium [Moles/Vol] 139 mmol/L Normal 136-145 [facility] Comment on above: Performed By: #### L 500.4050, L503.0105, L509.1000, L100.0100, L501.2300, L501.9985, L500.4100 #### [facility] [address] [place], [address] T PROT 7.3 g/dL Normal 6.4-8.[address] [facility] Comment on above: Performed By: #### L 500.4050, L503.0105, L509.1000, L100.0100, L501.2300, L501.9985, L500.4100 #### [facility] [address] [place], [address] Urea nitrogen [Mass/Vol] 19 mg/dL High 7-[address] [facility] Comment on above: Performed By: #### L 500.4050, L503.0105, L509.1000, L100.0100, L501.2300, L501.9985, L500.4100 #### [facility] [address] [place], [address] Hemoglobin A1con 06-01-2024 HbA1c (Bld) [Mass fraction] 6.3 % High 3.8-5.[address] [facility] Comment on above: Result Comment: Norm al < 5.7 % Prediabetic 5.7 - 6.4 % Diabetic >or= 6.5 % Please note range changes. Performed By: #### L 500.4050, L503.0105, L509.1000, L100.0100, L501.2300, L501.9985, L500.4100 #### [facility] [address] [place], [address] Lipid Profileon 06-01-2024 Cholesterol [Mass/Vol] 185 mg/dL Normal 200 [facility] Comment on above: Result Comment: <200 mg/dL Desirable 200-240 mg/dL Borderline >240 mg/dL High Risk Performed By: #### L 500.4050, L503.0105, L509.1000, L100.0100, L501.2300, L501.9985, L500.4100 #### [facility] [address] [place], [address] Cholesterol in HDL [Mass/Vol] 51 mg/dL Normal [facility] Comment on above: Result Comment: The drugs N-Acetylcysteine and Metamizole may falsely depress this assay. Reference Range HDL <40 mg/dL Low HDL Cholesterol HDL >or= 60 mg/dL High HDL Cholesterol Performed By: #### L 500.4050, L503.0105, L509.1000, L100.0100, L501.2300, L501.9985, L500.4100 #### [facility] [address] [place], [address] Cholesterol in LDL [Mass/Vol] 118 mg/dL Normal 0-[address] [facility] Comment on above: Performed By: #### L 500.4050, L503.0105, L509.1000, L100.0100, L501.2300, L501.9985, L500.4100 #### [facility] [address] [place], [address] Cholesterol in VLDL [Mass/Vol] 16 mg/dL Normal 5-[address] [facility] Comment on above: Performed By: #### L 500.4050, L503.0105, L509.1000, L100.0100, L501.2300, L501.9985, L500.4100 #### [facility] [address] [place], [address] Triglyceride [Mass/Vol] 80 mg/dL Normal [facility] Comment on above: Result Comment: The drugs N-Acetylcysteine and Metamizole may falsely depress this assay. Serum Triglycerides Reference Interval Normal <150 mg/dL Borderline high 150 - 199 mg/dL High 200 - 499 mg/dL Very High > or = 500 mg/dL Performed By: #### L 500.4050, L503.0105, L509.1000, L100.0100, L501.2300, L501.9985, L500.4100 #### [facility] [address] [place], [address] PTHINon 06-01-2024 PTH 54.3 pg/mL Normal 18.4-80.[address] [facility] Comment on above: Performed By: #### L 500.4050, L503.0105, L509.1000, L100.0100, L501.2300, L501.9985, L500.4100 #### [facility] [address] [place], [address] Phosphoruson 06-01-2024 Phosphate [Mass/Vol] 2.8 mg/dL Normal 2.5-4.9 [facility] Comment on above: Performed By: #### L 500.4050, L503.0105, L509.1000, L100.0100, L501.2300, L501.9985, L500.4100 #### [facility] [address] [place], [address] Vitamin B12on 06-01-2024 Cobalamin (Vitamin B12) [Mass/Vol] 885 pg/mL Normal 211-[address] [facility] Comment on above: Performed By: #### L 500.4050, L503.0105, L509.1000, L100.0100, L501.2300, L501.9985, L500.4100 #### [facility] [address] [place], [address] Absolute lymphocyte countOrd ered By: Donta Prabhakar on 05-29-2023 Lymphocytes Auto (Unsp spec) [#/Vol] 1.53 10*3/uL 0.83-4.[address] [facility] Automated lymphocyte count a s percentage of total leukocytesOrdered By: Donta Prabhakar on 05-29-2023 Lymphocytes/100 WBC Auto (Unsp spec) 14.1 % 19-[address] [facility] Basophil percentageOrdered B y: Donta Prabhakar on 05-29-2023 Basophils/100 WBC (Bld) 0.6 % 0-1 [facility] Bilirubin [Mass/Vol] 0.50 mg/dL 0.20-1.00 [facility] Comment on above: For patients on eltr ombopag therapy, use of Dimension [place] TBIL is not recommended. Chloride [Moles/Vol] 106 mmol/L 98-107 [facility] Cholesterol [Mass/Vol] 190 mg/dL <200 [facility] Comment on above: <200 mg/dL Desirable 200-240 mg/dL Borderline >240 mg/dL High Risk Eosinophils/100 WBC (Bld) 0.7 % 0-[address] [facility] Glucose [Mass/Vol] 107 mg/dL 74-106 [facility] Comment on above: Fasting Glucose resu lt from 100 to 125 mg/dL suggests IMPAIRED HOMEOSTASIS per A.D.A. criteria. Hemoglobin (Bld) [Mass/Vol] 11.2 g/dL 13.0-16.[address] [facility] Monocytes/100 WBC (Bld) 6.1 % 0-10 [facility] Neutrophils (Bld) [#/Vol] 8.5 10*3/uL 2.0-7.[address] [facility] Neutrophils/100 WBC (Bld) 78.3 % 47-[address] [facility] Potassium [Moles/Vol] 3.8 mmol/L 3.5-5.1 [facility] Protein [Mass/Vol] 7.3 g/dL 6.4-8.2 [facility] Sodium [Moles/Vol] 138 mmol/L 136-145 [facility] Triglyceride [Mass/Vol] 70 mg/dL <199 [facility] Comment on above: The drugs N-Acetylcy steine and Metamizole may falsely depress this assay.Serum Triglycerides Reference Interval Normal <150 mg/dL Borderline high 150 - 199 mg/dL High 200 - 499 mg/dL Very High > or = 500 mg/dL WBC (Bld) [#/Vol] 10.9 10*3/uL 4.4-11.0 [facility] Determination of erythrocyte mean corpuscular volume (MCV)Ordered By: Donta Prabhakar on 05-29-2023 MCV (RBC) [Entitic vol] 85.4 fL 80-94 [facility] Erythrocyte distribution wid th ratioOrdered By: Donta Prabhakar on 05-29-2023 Erythrocyte distribution width (RBC) [Ratio] 14.8 % 11.6-14.[address] [facility] Erythrocyte distribution wid th standard deviationOrdered By: Donta Prabhakar on 05-29-2023 Erythrocyte distribution width (RBC) [Entitic vol] 46.4 fL 35.1-43.9 [facility] Hematocrit Auto (Bld) [Volum e fraction]Ordered By: Donta Prabhakar on 05-29-2023 Hematocrit (Bld) [Volume fraction] 37.3 % 40-[address] [facility] Immature granulocytes/100 WB C Auto (Bld)Ordered By: Donta Prabhakar on 05-29-2023 Immature granulocytes/100 WBC (Bld) 0.200 % 0.0-0.[address] [facility] Comment on above: IG% - Immature Granu locytes (promyelocytes, myelocytes and metamyelocytes) > 1% indicates that a LEFT SHIFT is Present. Laboratory - Chemistry and C hemistry - challengeOrdered By: Donta Prabhakar on 05-29-2023 Albumin/Globulin [Mass ratio] 0.7 {ratio} 0.9-2.[address] [facility] ALP [Catalytic activity/Vol] 117 U/L 45-[address] [facility] ALT [Catalytic activity/Vol] 22 U/L 16-[address] [facility] Cholesterol in HDL [Mass/Vol] 45 mg/dL >[address] [facility] Comment on above: The drugs N-Acetylcy steine and Metamizole may falsely depress this assay. Reference Range HDL <40 mg/dL Low HDL Cholesterol HDL >or= 60 mg/dL High HDL Cholesterol Cholesterol in LDL [Mass/Vol] 131 mg/dL 0-[address] [facility] CO2 [Moles/Vol] 25.0 mmol/L 21.0-32.[address] [facility] Globulin (S) [Mass/Vol] 4.2 g/dL 2.2-4.2 [facility] Urea nitrogen/Creatinine [Mass ratio] 12.6 mg/mg 10-[address] [facility] - Hematology and Cell countsOrdered By: Donta Prabhakar on 05-29-2023 MCH (RBC) [Entitic mass] 25.6 pg 27.0-32.[address] [facility] MCHC (RBC) [Mass/Vol] 30.0 g/dL 32-36 [facility] Nucleated RBC/100 WBC (Bld) [Ratio] 0 % 0-[address] [facility] Platelet mean volume (Bld) [Entitic vol] 10.2 fL 6.2-12.[address] [facility] Platelets (Bld) [#/Vol] 251 10*3/uL 150-[address] [facility] No Panel InformationOrdered By: Donta Prabhakar on 05-29-2023 Estimated GFR (MDRD) Amer 59 mL/min >[address] [facility] Comment on above: GFR Calc Estimated GFR (MDRD) Non-Af Amer 48 mL/min >[address] [facility] Comment on above: Non- GFR Calc Prostate Specific Antigen Screen 2.07 ng/mL 0.00-4.[address] [facility] Comment on above: This test was perfor med using the TPSA assay method for the[employer] chemistry system. Values obtained with differentassay methods cannot be used interchangably.When changing PSA assays in the course of monitoring apatient, additional sequential testing should be carriedout to confirm baseline values. VLDL Cholesterol 14 mg/dL 5-[address] [facility] RBC Auto (Bld) [#/Vol]Ordere d By: Donta Prabhakar on 05-29-2023 RBC (Bld) [#/Vol] 4.37 10*6/uL 4.6-6.2 [facility] Serum or plasma calcium red urement (mass/volume)Ordered By: Donta Prabhakar on 05-29-2023 Calcium [Mass/Vol] 9.3 mg/dL 8.5-10.1 [facility] Serum or plasma creatinine m easurement (mass/volume)Ordered By: Donta Prabhakar on 05-29-2023 Creatinine [Mass/Vol] 1.51 mg/dL 0.70-1.30 [facility] Comment on above: The validity of the calculated GFR & GFRAA in patients over 70 years has not been determined. Clinical correlation is essential. Serum or plasma urea nitroge n measurement (mass/volume)Ordered By: Donta Prabhakar on 05-29-2023 Urea nitrogen [Mass/Vol] 19 mg/dL 7-[address] [facility] Thin prep Papanicolaou smear with manual screeningOrdered By: Donta Vanna on 05-29-2023 Thin prep Papanicolaou smear with manual screening 3.1 g/dL 3.2-5.[address] [facility] Thin prep Papanicolaou smear with manual screening 16 U/L 15-[address] [facility] Thin prep Papanicolaou smear with manual screening 7 5-[address] [facility] Basophil percentageOrdered B y: Dr. Aquino on 10-03-2022 Basophil percentage 2.4 mg/dL 2.5-4.9 [facility] Chloride [Moles/Vol] 108 mmol/L 98-107 [facility] [facility] Glucose [Mass/Vol] 113 mg/dL 74-106 [facility] Comment on above: Fasting Glucose resu lt from 100 to 125 mg/dL suggests IMPAIRED HOMEOSTASIS per A.D.A. criteria. Potassium [Moles/Vol] 3.8 mmol/L 3.5-5.1 [facility] Sodium [Moles/Vol] 140 mmol/L 136-145 [facility] WBC (Bld) [#/Vol] 12.4 10*3/uL 4.4-11.0 [facility] Blood erythrocytes count (nu mber/volume)Ordered By: Dr. Aquino on 10-03-2022 RBC (Bld) [#/Vol] 4.29 10*6/uL 4.6-6.2 [facility] Blood hemoglobin measurement (mass/volume)Ordered By: Dr. Aquino on 10-03-2022 Hemoglobin (Bld) [Mass/Vol] 11.0 g/dL 13.0-16.[address] [facility] Blood platelet mean volumeOr dered By: Dr. Aquino on 10-03-2022 Platelet mean volume (Bld) [Entitic vol] 10.3 fL 6.2-12.[address] [facility] Determination of erythrocyte mean corpuscular volume (MCV)Ordered By: Dr. Aquino on 10-03-2022 MCV (RBC) [Entitic vol] 86.7 fL 80-94 [facility] Hematocrit Auto (Bld) [Volum e fraction]Ordered By: Dr. Aquino on 10-03-2022 Hematocrit (Bld) [Volume fraction] 37.2 % 40-[address] [facility] Laboratory - Chemistry and C hemistry - challengeOrdered By: Dr. Aquino on 10-03-2022 CO2 [Moles/Vol] 27.0 mmol/L 21.0-32.[address] [facility] Urea nitrogen/Creatinine [Mass ratio] 16.4 mg/mg 10-[address] [facility] Laboratory - Hematology and Cell countsOrdered By: Dr. Aquino on 10-03-2022 Erythrocyte distribution width (RBC) [Entitic vol] 44.4 fL 35.1-43.9 [facility] Erythrocyte distribution width (RBC) [Ratio] 14.0 % 11.6-14.[address] [facility] MCH (RBC) [Entitic mass] 25.6 pg 27.0-32.[address] [facility] MCHC Auto (RBC) [Mass/Vol]Or dered By: Dr. Aquino on 10-03-2022 MCHC (RBC) [Mass/Vol] 29.6 g/dL 32-36 [facility] No Panel InformationOrdered By: Dr. Aquino on 10-03-2022 Estimated GFR (MDRD) Amer 75 mL/min >[address] [facility] Comment on above: GFR Calc Estimated GFR (MDRD) Non-Af Amer 62 mL/min >[address] [facility] Comment on above: Non- GFR Calc Parathyroid Hormone (Intact) 76.5 pg/mL 18.4-80.[address] [facility] Platelets bldOrdered By: Dr. Aquino on 10-03-2022 Platelets (Bld) [#/Vol] 276 10*3/uL 150-[address] [facility] Serum or plasma albumin red urement (mass/volume)Ordered By: Dr. Aquino on 10-03-2022 Albumin [Mass/Vol] 3.0 g/dL 3.2-5.0 [facility] Serum or plasma calcium red urement (mass/volume)Ordered By: Dr. Aquino on 10-03-2022 Calcium [Mass/Vol] 9.0 mg/dL 8.5-10.1 [facility] Serum or plasma creatinine m easurement (mass/volume)Ordered By: Dr. Aquino on 10-03-2022 Creatinine [Mass/Vol] 1.22 mg/dL 0.70-1.30 [facility] Comment on above: The validity of the calculated GFR & GFRAA in patients over 70 years has not been determined. Clinical correlation is essential. Serum or plasma urea nitroge n measurement (mass/volume)Ordered By: Dr. Aquino on 10-03-2022 Urea nitrogen [Mass/Vol] 20 mg/dL 7-[address] [facility] No Panel InformationOrdered By: Dr. Prabhakar on 06-08-2022 Serum Immunofixation Comment . [facility] Comment on above: No monoclonality det ected. Serum or plasma IgA measurem ent (mass/volume)Ordered By: Dr. Prabhakar on 06-08-2022 IgA [Mass/Vol] 43 mg/dL 61-[address] [facility] Comment on above: Result confirmed on concentration. Serum or plasma IgG measurem ent (mass/volume)Ordered By: Dr. Prabhakar on 06-08-2022 IgG [Mass/Vol] 896 mg/dL 603-[address] [facility] Serum or plasma IgM measurem ent (mass/volume)Ordered By: Dr. Prabhakar on 06-08-2022 IgM [Mass/Vol] 396 mg/dL 15-[address] [facility] Comment on above: Performed at: [place] [id number] Director: Johnny Green PhD, Phone: [phone] 24 hour urine alpha 2 globul in/total protein ratio by electrophoresis (mass fraction)Ordered By: Dr. Prabhakar on 06-05-2022 Alpha 2 globulin Elph (24H U) [Mass fraction] 28.8 % . [facility] 24 hour urine beta globulin/ total protein ratio by electrophoresis (mass fraction)Ordered By: Dr. Prabhakar on 06-05-2022 Beta globulin Elph (24H U) [Mass fraction] 23.0 % . [facility] 24 hour urine gamma globulin /total protein ratio by electrophoresis (mass fraction)Ordered By: Dr. Prabhakar on 06-05-2022 Gamma globulin Elph (24H U) [Mass fraction] 23.2 % . [facility] Basophil percentageOrdered B y: Dr. Prabhakar on 06-05-2022 Basophil percentage Comment . [facility] Comment on above: No monoclonality det ected.Performed at: [employer] [facility] [address] [id number] Director: Johnny Green PhD, Phone: [phone] LDH [Catalytic activity/Vol] 188 U/L 87-[address] [facility] Iron measurement (mass/mass) Ordered By: Dr. Prabhakar on 06-05-2022 Iron (Unsp spec) [Mass/Mass] 26 ug/dL 65-[address] [facility] Laboratory - Chemistry and C hemistry - challengeOrdered By: Dr. Prabhakar on 06-05-2022 Albumin [Mass/Vol] 3.5 g/dL 2.9-4.4 [facility] Cobalamin (Vitamin B12) [Mass/Vol] 258 pg/mL 211-[address] [facility] No Panel InformationOrdered By: Dr. Prabhakar on 06-05-2022 Addendum Document Comment . [facility] Comment on above: The SPE pattern appe ars unremarkable. Evidence ofmonoclonal protein is not apparent. Csqlr-7-Ryvtfnool 0.3 g/dL 0.0-0.[address] [facility] Rbgca-3-Hmdawnced 0.8 g/dL 0.4-1.[address] [facility] Gamma Globulins 1.0 g/dL 0.4-1.[address] [facility] Urine Immunofixation PEP Note Comment . [facility] Comment on above: Protein electrophore sis scan will follow via computer,mail, or mold maker helper delivery. Protein Fractions Elph [Inte rp]Ordered By: Dr. Prabhakar on 06-05-2022 Protein Fractions [Interp] Comment . [facility] Comment on above: Protein electrophore sis scan will follow via computer,mail, or mold maker helper delivery. Serum albumin to globulin ra krista by protein electrophoresisOrdered By: Dr. Prabhakar on 06-05-2022 Albumin/Globulin Elph [Mass ratio] 1.2 0.7-1.[address] [facility] Serum globulin measurement ( mass/volume)Ordered By: Dr. Prabhakar on 06-05-2022 Globulin (S) [Mass/Vol] 3.0 g/dL 2.2-3.9 [facility] Serum or plasma beta globuli n measurement by electrophoresis (mass/volume)Ordered By: Dr. Prabhakar on 06-05-2022 Beta globulin Elph [Mass/Vol] 0.9 g/dL 0.7-1.[address] [facility] Serum or plasma ferritin matt surement (mass/volume)Ordered By: Dr. Prabhakar on 06-05-2022 Ferritin [Mass/Vol] 158 ng/mL 26-388 [facility] Thin prep Papanicolaou smear with manual screeningOrdered By: Dr. Prabhakar on 06-05-2022 Thin prep Papanicolaou smear with manual screening See comment [facility] Comment on above: NOT OBSERVED Total protein bloodOrdered B y: Dr. Prabhakar on 06-05-2022 Protein [Mass/Vol] 6.5 g/dL 6.0-8.5 [facility] Urine albumin/total protein mass ratio by electrophoresisOrdered By: Dr. Prabhakar on 06-05-2022 Albumin Elph (U) [Mass fraction] 21.1 % . [facility] Urine alpha 1 globulin/total protein ratio by electrophoresis (mass fraction)Ordered By: Dr. Prabhakar on 06-05-2022 Alpha 1 globulin Elph (U) [Mass fraction] 3.8 % . [facility] Urine monoclonal protein/tot al protein mass ratio by electrophoresisOrdered By: Dr. Prabhakar on 06-05-2022 Protein.monoclonal Elph (U) [Mass fraction] See comment [facility] Comment on above: NOT OBSERVED Urine protein measurement (m ass/volume)Ordered By: Dr. Prabhakar on 06-05-2022 Protein (U) [Mass/Vol] 13.6 mg/dL Not Estab. [facility] Absolute lymphocyte countOrd ered By: Dr. Prabhakar on 05-23-2022 Lymphocytes Auto (Unsp spec) [#/Vol] 1.88 10*3/uL 0.83-4.[address] [facility] Basophil percentageOrdered B y: Dr. Prabhakar on 05-23-2022 Basophils/100 WBC (Bld) 0.8 % 0-1 [facility] Bilirubin [Mass/Vol] 0.60 mg/dL 0.20-1.00 [facility] Comment on above: For patients on eltr ombopag therapy, use of Dimension [place] TBIL is not recommended. Chloride [Moles/Vol] 106 mmol/L 98-107 [facility] Cholesterol [Mass/Vol] 194 mg/dL <200 [facility] Comment on above: <200 mg/dL Desirable 200-240 mg/dL Borderline >240 mg/dL High Risk Eosinophils/100 WBC (Bld) 1.0 % 0-[address] [facility] Glucose [Mass/Vol] 123 mg/dL 74-106 [facility] Comment on above: Fasting Glucose resu lt from 100 to 125 mg/dL suggests IMPAIRED HOMEOSTASIS per A.D.A. criteria. Neutrophils (Bld) [#/Vol] 7.2 10*3/uL 2.0-7.[address] [facility] Neutrophils/100 WBC (Bld) 71.8 % 47-[address] [facility] Potassium [Moles/Vol] 3.8 mmol/L 3.5-5.1 [facility] Protein [Mass/Vol] 7.3 g/dL 6.4-8.2 [facility] Sodium [Moles/Vol] 141 mmol/L 136-145 [facility] Triglyceride [Mass/Vol] 72 mg/dL <199 [facility] Comment on above: The drugs N-Acetylcy steine and Metamizole may falsely depress this assay.Serum Triglycerides Reference Interval Normal <150 mg/dL Borderline high 150 - 199 mg/dL High 200 - 499 mg/dL Very High > or = 500 mg/dL WBC (Bld) [#/Vol] 10.0 10*3/uL 4.4-11.0 [facility] Bilirubin Test strip Ql (U)O rdered By: Dr. Prabhakar on 05-23-2022 Bilirubin Ql (U) Negative Negative [facility] Blood erythrocytes count (nu mber/volume)Ordered By: Dr. Prabhakar on 05-23-2022 RBC (Bld) [#/Vol] 4.51 10*6/uL 4.6-6.2 [facility] Blood hemoglobin measurement (mass/volume)Ordered By: Dr. Prabhakar on 05-23-2022 Hemoglobin (Bld) [Mass/Vol] 12.5 g/dL 13.0-16.[address] [facility] Blood lymphocytes/100 leukoc ytesOrdered By: Dr. Prabhakar on 05-23-2022 Lymphocytes/100 WBC (Bld) 18.8 % 19-[address] [facility] Blood monocytes/100 leukocyt esOrdered By: Dr. Prabhakar on 05-23-2022 Monocytes/100 WBC (Bld) 7.4 % 0-10 [facility] Blood platelet mean volumeOr dered By: Dr. Prabhakar on 05-23-2022 Platelet mean volume (Bld) [Entitic vol] 11.0 fL 6.2-12.[address] [facility] Determination of erythrocyte mean corpuscular volume (MCV)Ordered By: Dr. Prabhakar on 05-23-2022 MCV (RBC) [Entitic vol] 88.7 fL 80-94 [facility] Hematocrit Auto (Bld) [Volum e fraction]Ordered By: Dr. Prabhakar on 05-23-2022 Hematocrit (Bld) [Volume fraction] 40.0 % 40-[address] [facility] Ketones Test strip Ql (U)Ord ered By: Dr. Prabhakar on 05-23-2022 Ketones Ql (U) 5 mg/dl Negative [facility] Laboratory - Chemistry and C hemistry - challengeOrdered By: Dr. Prabhakar on 05-23-2022 ALP [Catalytic activity/Vol] 104 U/L 45-[address] [facility] ALT [Catalytic activity/Vol] 19 U/L 16-[address] [facility] CO2 [Moles/Vol] 29.0 mmol/L 21.0-32.[address] [facility] Globulin (S) [Mass/Vol] 3.9 g/dL 2.2-4.2 [facility] Urea nitrogen/Creatinine [Mass ratio] 16.5 mg/mg 10-[address] [facility] Laboratory - Hematology and Cell countsOrdered By: Dr. Prabhakar on 05-23-2022 Erythrocyte distribution width (RBC) [Entitic vol] 44.1 fL 35.1-43.9 [facility] Erythrocyte distribution width (RBC) [Ratio] 13.5 % 11.6-14.[address] [facility] Immature granulocytes/100 WBC (Bld) 0.200 % 0.0-0.[address] [facility] Comment on above: IG% - Immature Granu locytes (promyelocytes, myelocytes and metamyelocytes) > 1% indicates that a LEFT SHIFT is Present. MCH (RBC) [Entitic mass] 27.7 pg 27.0-32.[address] [facility] Nucleated RBC/100 WBC (Bld) [Ratio] 0 % 0-[address] [facility] MCHC Auto (RBC) [Mass/Vol]Or dered By: Dr. Prabhakar on 05-23-2022 MCHC (RBC) [Mass/Vol] 31.3 g/dL 32-36 [facility] Nitrite Test strip Ql (U)Ord ered By: Dr. Prabhakar on 05-23-2022 Nitrite Ql (U) Negative Negative [facility] No Panel InformationOrdered By: Dr. Prabhakar on 05-23-2022 Estimated GFR (MDRD) Amer 65 mL/min >[address] [facility] Comment on above: GFR Calc Estimated GFR (MDRD) Non-Af Amer 53 mL/min >[address] [facility] Comment on above: Non- GFR Calc Prostate Specific Antigen Screen 2.63 ng/mL 0.00-4.[address] [facility] Comment on above: This test was perfor med using the TPSA assay method for the[employer] chemistry system. Values obtained with differentassay methods cannot be used interchangably.When changing PSA assays in the course of monitoring apatient, additional sequential testing should be carriedout to confirm baseline values. Platelets bldOrdered By: Dr. Prabhakar on 05-23-2022 Platelets (Bld) [#/Vol] 235 10*3/uL 150-[address] [facility] Protein Test strip Ql (U)Ord ered By: Dr. Prabhakar on 05-23-2022 Protein Ql (U) 15 mg/dl Negative [facility] Serum or plasma albumin red urement (mass/volume)Ordered By: Dr. Prahbakar on 05-23-2022 Albumin [Mass/Vol] 3.4 g/dL 3.2-5.0 [facility] Serum or plasma albumin/glob ulin mass ratioOrdered By: Dr. Prabhakar on 05-23-2022 Albumin/Globulin [Mass ratio] 0.9 {ratio} 0.9-2.[address] [facility] Serum or plasma calcium red urement (mass/volume)Ordered By: Dr. Prabhakar on 05-23-2022 Calcium [Mass/Vol] 9.0 mg/dL 8.5-10.1 [facility] Serum or plasma cholesterol in HDL measurement (mass/volume)Ordered By: Dr. Prabhakar on 05-23-2022 Cholesterol in HDL [Mass/Vol] 46 mg/dL >[address] [facility] Comment on above: The drugs N-Acetylcy steine and Metamizole may falsely depress this assay. Reference Range HDL <40 mg/dL Low HDL Cholesterol HDL >or= 60 mg/dL High HDL Cholesterol Serum or plasma cholesterol in VLDL measurement (mass/volume)Ordered By: Dr. Prabhakar on 05-23-2022 Cholesterol in VLDL [Mass/Vol] 14 mg/dL 5-[address] [facility] Serum or plasma creatinine m easurement (mass/volume)Ordered By: Dr. Prabhakar on 05-23-2022 Creatinine [Mass/Vol] 1.39 mg/dL 0.70-1.30 [facility] Comment on above: The validity of the calculated GFR & GFRAA in patients over 70 years has not been determined. Clinical correlation is essential. Serum or plasma low density lipoprotein (LDL) cholesterol measurement (mass/volume)Ordered By: Dr. Prabhakar on 05-23-2022 Cholesterol in LDL [Mass/Vol] 134 mg/dL 0-[address] [facility] Serum or plasma urea nitroge n measurement (mass/volume)Ordered By: Dr. Prabhakar on 05-23-2022 Urea nitrogen [Mass/Vol] 23 mg/dL 7-[address] [facility] Thin prep Papanicolaou smear with manual screeningOrdered By: Dr. Prabhakar on 05-23-2022 Thin prep Papanicolaou smear with manual screening 16 U/L 15-[address] [facility] Thin prep Papanicolaou smear with manual screening 6 5-[address] [facility] Urine blood detectionOrdered By: Dr. Prabhakar on 05-23-2022 RBC Ql (U) 10 /ul Negative [facility] Urine clarityOrdered By: Dr. Prabhakar on 05-23-2022 Clarity (U) Clear Clear [facility] Urine color determinationOrd ered By: Dr. Prabhakar on 05-23-2022 Color (U) Yellow Yellow [facility] Urine glucose detectionOrder ed By: Dr. Prabhakar on 05-23-2022 Glucose Ql (U) Normal mg/dl Normal [facility] Urine leukocyte esterase det ection by dipstickOrdered By: Dr. Prabhakar on 05-23-2022 Leukocyte esterase Test strip Ql (U) Negative Negative [facility] Urine pHOrdered By: Dr. Erika guillen on 05-23-2022 pH (U) 5.0 [pH] 5.0 - 8.[address] [facility] Urine specific gravity measu rementOrdered By: Dr. Prabhakar on 05-23-2022 Specific gravity (U) [Rel density] 1.020 1.002-1.[address] [facility] Urobilinogen Auto test strip Ql (U)Ordered By: Dr. Prabhakar on 05-23-2022 Urobilinogen Ql (U) Normal mg/dl Normal [facility] Whole blood hemoglobin A1c/t otal hemoglobin ratio (mass fraction)Ordered By: Dr. Prabhakar on 05-23-2022 HbA1c (Bld) [Mass fraction] 6.1 % 3.8-5.[address] [facility] Comment on above: Normal < 5.7 % Predi abetic 5.7 - 6.4 % Diabetic >or= 6.5 % Please note range changes. CNCOon 03-31-2019 [facility] Letter Text Normal [facility] Encounters Encounter Date Encounter Type Care Provider Facility Start: 11-30-2024 End: 11-30-[address] Donta Prabhakar DO Work Phone: -[facility]atory [facility] Start: 11-30-2024 End: 11-30-[address] Donta Prabhakar DO -Laboratory [place] Work Phone: Start: 11-30-2024 End: 11-30-2024 ambulatory Donta Prabhakar Facility:[facility] Start: 06-09-2024 End: 06-09-2024 ambulatory Donta Prabhakar Facility:[facility] Start: 06-01-2024 End: 06-01-2024 ambulatory [facility] Facility:[facility] Start: 07-04-2023 End: 07-04-[address] [facility] Work Phone: Start: 07-04-2023 End: 07-04-2023 Patient encounter procedure [facility]-Sleep Lab Work Phone: Start: 05-29-2023 End: 05-29-[address] [facility] Work Phone: Start: 05-29-2023 End: 05-29-2023 Patient encounter procedure [facility]-Laboratory, [place] Work Phone: Start: 10-03-2022 End: 10-03-[address] [facility] Work Phone: Start: 10-03-2022 End: 10-03-2022 Patient encounter procedure [facility]-Laboratory, Merna Bhaskar [facility] Start: 08-30-2022 End: 08-30-2022 Patient encounter procedure [facility]-Ultrasound, [facility] Start: 06-08-2022 End: 06-08-[address] [facility] Work Phone: Start: 06-08-2022 End: 06-08-2022 Patient encounter procedure [facility]-Laboratory, Merna Muro [facility] Start: 06-05-2022 End: 06-05-[address] [facility] Work Phone: Start: 06-05-2022 End: 06-05-2022 Patient encounter procedure [facility]-Laboratory, Merna Jose Luisly [facility] Start: 05-23-2022 End: 05-23-2022 Patient encounter procedure [facility]-Laboratory, Merna Jose Luisly [facility] Start: 04-09-2022 End: 04-09-[address] [facility] Work Phone: Start: 04-09-2022 End: 04-09-2022 Discharged Recur[address] [facility]-Physical Therapy Procedures Date Procedure Procedure Detail Performing Clinician Start: 08-30-2022 US urinary tract Plan of Treatment Date Care Activity Detail Author Start: 06-05-2022 Serum immunofixation [facility] Start: 06-05-2022 Urine protein electrophoresis [facility] IgA [Mass/volume] in Serum or Plasma [facility] IgG [Mass/volume] in Serum or Plasma [facility] IgM [Mass/volume] in Serum or Plasma [facility] Immunizations Immunization Date Immunization Notes Care Provider Fa cility 07-06-2020 Covms (Moderna) [facility] 06-08-2020 Covid ([facility] Payers Date Payer Category Payer Medicare [id number] [facility] [employer] [facility] [id number] 2023 Self-pay [id number] 2023 Unknown [id number] Unknown [id number] Unknown [id number] Unknown [id number] Unknown [id number] Unknown [id number] [id number] [id number] Social History Date Type Detail Facility Start: 01-22-2020 End: 01-22-2020 Tobacco smoking status NHIS Unknown if ever smoked [facility] Start: 1950 Sex Assigned At Male [facility] Start: 01-22-2020 Tobacco smoking stat us LAIS Ex-smoker (finding) [facility] Evaluation note Note Date & Type Note Facility Evaluation note No assessment information availa ble [facility] Work Phone: Reason for referral (narrative) Note Date & Type Note Facility Reason for referral (narrative) No reason for referral information available [facility] Work Phone: Summary Purpose Family History No Family History Records FoundNo Family History Records Found Advance Directives No Advanced Directives Records Found Advance Directive Response Recorded Date/ Time Living Will Yes January 21 0 11:58am Power of Bladder Cleaner Yes January 21 11:58am Advance Directive Response Recorded Date/ Time Living Will Yes January 21 0 12:58pm Power of Bladder Cleaner Yes January 21 12:58pm Chief Complaint and Reason for Visit Chief Complaint BALANCE/RX HERE Chief Complaint CKD3 Chief Complaint Sleep apnea, unspeci fied Chief Complaint Admit Date FASTING November 30, 2024 11 :28am Additional Source Comments (unrecognized sect ion and content) No Status Records FoundNo Status Records Found INFORMATION SOURCE (unrecogn ized section and content) DATE CREATED AUTHOR 04/01/2019 [facility] DATE CREATED AUTHOR AUTHOR'S ORGANIZ ATION 12/06/2024 [facility] Goals (unrecognized section and content) Goals [...] Role Status Dates Dr. Donta Prabhakar DO Family Provider Active Dr. Donat Prabhakar DO Primary Care Provider Active Team Status: Inactive Member Role Status Dates Dr. Donta Prabhakar DO Primary Care Prov ider, Attending Provider, Referring Provider Active Team Status: Inactive Member Role Status Dates Dr. Donta Prabhakar DO Primary Care Provider, Attendin g Provider Active Team Status: Active Member Role Status Dates Dr. Donta Prabhakar DO Primary Care Provider, Attendin g Provider Active Team Status: Inactive Member Role Status Dates Dr. Donta Prabhakar DO Primary Care Provider Active Dr. Rosa Maria Aquino DO Attending Provider, Referring Trisha mcintyre Active Team Status: Active Member Role/Relationship Status Dates Dr. Donta Prabhakar DO Primary Care Provider Active Team Status: Inactive Member Role/Relationship Status Dates Dr. Donta Prabhakar DO Primary Care Provider Active Start: November 30, 2024 End: November 30, 2024 Dr. Donta Prabhakar DO Attending Provider Active Start: November 30, 2024 End: November 30, 2024 Dr. Donta Prabhakar , Referring Provider Active Start: November 30, 2024 End: November 30, 2024 FOR RECORDS PERTAINING TO PATIENTS WHO ARE [...] BE BASED ON THE PRIMARY CLINICAL RECORDS. [facility] [employer] provides no warranty or guarantee of the accuracy or completeness of information in this document.
== END | disposition home or self-care (01) ==
LOC: BFHLAB 14:44
PROVIDERS: PCP Family Medicine; Visit Provider Family Medicine
DX: D50.9 Iron deficiency anemia, unspecified (principal)
CPT/HCPCS: 36415; 82728; 83540; 83615

== ENCOUNTER → 2025-01-28 | Outpatient (CLI) | payer MEDICARE, BC, SELFPAY ==
[2025-01-28 17:43] LABS: Hematocrit 37.0 % (40-54); Hemoglobin 10.9 g/dL (13.0-16.5); Immature Granulocytes Count 0.040 X10^3/uL (0.0-0.0); Immature Reticulocyte Fraction 11.50 % (3.00-15.90); Mean Corp Hgb Conc 29.5 g/dL (32-36); Mean Corpuscular Volume 77.1 fL (80-94); Mean Platelet Vol. 10.5 fl (6.2-12.0); NRBC Flagged by Analyzer 0 % (0-5); Platelet Count 330 K/mm3 (150-450); RBC Distribution Width CV 18.4 % (11.6-14.6); RBC Distribution Width SD 51.8 fl (35.1-43.9); Red Blood Count 4.80 M/mm3 (4.6-6.2); Reticulocyte Count 0.72 % (0.5-1.5); White Blood Count 13.7 K/mm3 (4.4-11.0)
[2025-01-28 19:53] LABS: AST(SGOT) 16 U/L (<=37); Alanine Aminotransfer ALT/SGPT 10 U/L (<=46); Albumin, Serum 3.9 g/dL (3.4-4.8); Alkaline Phosphatase 92 U/L (40-129); Anion Gap 11 (5-15); BUN 26 mg/dL (4-19); BUN/Creat Ratio 20.1 RATIO (10-20); Calcium,Total 9.5 mg/dL (7.6-11.0); Carbon Dioxide 24.4 mmol/L (21.0-32.0); Chloride 105 mmol/L (98-108); Ferritin 38 ng/mL (37-417); Globulin 3.5 g/dL (2.2-4.2); Glucose 101 mg/dL (70-99); Potassium 4.0 mmol/L (3.3-5.1)
[2025-01-28 20:26] LABS: CRP 25.10 mg/L (0.0-3.0); Iron 17 ug/dL (65-175); LDH 161 U/L (87-241)
[2025-02-03 03:07] LABS: Egg, Whole <0.10 kU/L (Class 0); Mussels <0.10 kU/L (Class 0)
[2025-02-15 15:08] LABS: ACCA 17 units (0-90); ALCA 69 units (0-60); Albumin 3.5 g/dL (2.9-4.4); Cytoplasmic Ab (C-ANCA) <1:20 titer (Neg:<1:20); Gamma Globulin 1.3 g/dL (0.4-1.8); Immunoglobulin A 60 mg/dL (61-437); Immunoglobulin G 1087 mg/dL (603-1613); Immunoglobulin M 479 mg/dL (15-143); PROEL- TOTAL PROTEIN 6.9 g/dL (6.0-8.5); Perinuclear Ab (P-ANCA) <1:20 titer (Neg:<1:20)
== END | disposition home or self-care (01) ==
LOC: LAB 16:50
PROVIDERS: PCP Family Medicine; Referring Provider Internal Medicine Gastroenterology; Visit Provider Internal Medicine Gastroenterology
DX: D64.9 Anemia, unspecified (principal); Z12.10 Encounter for screening for malignant neoplasm of intestinal tract, unspecified
CPT/HCPCS: 80053; 82728; 82784; 82785; 83516; 83540; 83615; 84165; 84443; 85025; 85045; 85652; 86003; 86005; 86036; 86037; 86140; 86255; 86334; 86671

== ENCOUNTER 2025-03-24 09:38 | Day surgery (SDC) | payer MEDICARE, BC, SELFPAY ==
--- NOTE | 2025-03-19 12:23 | PAT.ANESEVAL ---
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 When Was Last Pacemaker Check QUESTION #4 FULL TEXT: You/Your Family Experience fever (hyperthermia) with Anesthesia Last Oral Intake Last Oral intake: Last Oral Intake NPO since Meds taken in AM with sips of water? 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 - wire bound box machine helper: PONV - wire bound box machine helper Female No 03/19/25 10:29 HX of Motion Sickness No 03/19/25 10:29 HX of N/V After Surgery No 03/19/25 10:29 Non-Smoker Yes 03/19/25 10:29 Duration of Surgery greater No 03/19/25 10:29 than 60 minutes Number of Risk Factors 1 03/19/25 10:29 PONV Score Low Risk 03/19/25 10:29 Respiratory Assessment Respiratory Assessment - wire bound box machine helper: Respiratory Tract Infection Hx - wire bound box machine helper Hx Respiratory Tract Infection No 03/19/25 10:29 STOP Sleep Apnea STOP Sleep Apnea - wire bound box machine helper: STOP Sleep Apnea - wire bound box machine helper Hx Hypertension No 03/19/25 10:29 Hx Sleep Apnea No 03/19/25 10:29 CPAP BIPAP Do you snore loudly (louder No 03/19/25 10:29 than talking or can be heard Do you often feel tired/ No 03/19/25 10:29 fatigued/ sleepy during daytime? Has anyone observed you stop No 03/19/25 10:29 breathing during sleep? STOP Results Negative 03/19/25 10:29 QUESTION #5 FULL TEXT : Do you snore loudly (louder than talking or can be heard through closed doors)? 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 Specify any problems Hx of Preganancy in last 3 N/A 03/19/25 10:29 Months Nurse Filling Out Transfusion VCHRISTIN 03/19/25 10:29 & Questions: Date: 03/19/25 03/19/25 10:29 Time: 10:30 03/19/25 10:29 Patient unable to answer at this time (ie. confused, unrespo /Reproduction History /Reproductive History - wire bound box machine helper: /Reproductive Hx- wire bound box machine helper Hx Now No 03/19/25 10:29 Gestational Age (in weeks): EDC: Hx Hx Para Hx Section SAB No 03/19/25 10:29 Does the father of the baby or his family experience fever w Father of the baby Malignant Hypertension history comment [facility] Medical History (Updated 03/19/25 @ 10:29 by Luanne Crane) Wears glasses Arthritis Former smoker Vitamin B12 deficiency Urinary frequency IFG (impaired fasting glucose) Osteoarthritis Prediabetes HLD (hyperlipidemia) CLAUDIA (iron deficiency anemia) Anemia Stage 3a chronic kidney disease HTN (hypertension) Home Medications Medication Instructions Recorded Last Taken Type cholecalciferol (vitamin D3) 50 2,000 unit PO DAILY supplement 01/22/20 Unknown History mcg (2,000 unit) capsule amlodipine 5 mg tablet 5 mg PO QDAY 01/04/25 Unknown History ferrous sulfate 325 mg (65 mg 325 mg PO QDAY 01/04/25 Unknown History iron) tablet mecobalamin (vitamin B12) 2,500 2,500 mcg PO .TWICE WEEKLY 01/04/25 Unknown History mcg chewable tablet Allergy/AdvReac Type Severity Reaction Status Date / Time No Known Allergies Allergy Verified 03/19/25 10:17 Family History Mother Liver disease Father Prostate cancer Surgical History (Updated 03/19/25 @ 10:29 by Luanne Crane) Hx of colonoscopy History of tonsillectomy and adenoidectomy Social History Smoking Status: Former smoker quit date: 04/22/69 alcohol intake: current alcohol intake frequency: 0-2 drinks per day Alcohol type: wine substance use type: does not use Audit: Pertinent Findings Pertinent Findings Additional pertinent findings: Hemoglobin 10.9 g/dL, WBC 13,700/cc. Labs from 01/28/2025. Should be adequate to proceed with procedure. Recommendation Anesthesia Recommendation Anesthesia recommendation: OPTIMIZED for anesthesia
--- NOTE | 2025-03-24 09:50 | PCM.PRE.AN2 ---
ASA Classification* ASA Classification ASA Classification: 2 Assessment & Plan Anesthesia* Anesthesia Assessment Anesthesia Assessment: Discussed sedation and/or anesthesia options, risks, benefits, and alternatives with patient/parents/legal guardian/POA. Questions invited. The patient/parents/legal guardian/POA seems to understand and agrees to proceed with anesthesia plan. Reviewed the physical assessment, medical history, allergy history and patient home medications list prior to surgery/procedure/anesthetic and documented any changes. Performed airway and anesthesia risk assessments. Anesthesia Type Anesthesia Type: MAC Anesthesia Focused Assessment* Airway Assessment Mouth opens: >3 cm Mallampati Score: II Labs Anesthesia Preop lab: CBC WBC, (4.4-11.0) 13.7 K/mm3 H 01/28/25, 17: RBC, (4.6-6.2) 4.80 M/mm3 01/28/25, 17: Hgb, (13.0-16.5) 10.9 g/dL L 01/28/25, 17: Hct, (40-54) 37.0 % L 01/28/25, 17: Plt Count, (150-450) 330 K/mm3 01/28/25, 17:01 CHEMISTRY Potassium, (3.3-5.1) 4.0 mmol/L 01/28/25, 17: Sodium, (133-145) 141 mmol/L 01/28/25, 17: Phosphorus, (2.5-4.9) 2.8 mg/dL 06/01/24, 11:41 BUN, (4-19) 26 mg/dL H 01/28/25, 17:01 Creatinine, (0.70-1.20) 1.29 mg/dL H 01/28/25, 17:01 Glucose, (70-99) 101 mg/dL H 01/28/25, 17:01 TSH, (0.300-4.200) 1.120 uIU/mL 01/28/25, 17:01 COAG Pre-Assessment Diagnosis/Proposed Procedure Planned Operative Procedure(s): COLONOSCOPY/EGD Anesthesia History 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 When Was Last Pacemaker Check QUESTION #4 FULL TEXT: You/Your Family Experience fever (hyperthermia) with Anesthesia Last Oral Intake Last Oral intake: Last Oral Intake NPO since Meds taken in AM with sips of water? 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 Female No 03/19/25 10:29 HX of Motion Sickness No 03/19/25 10:29 HX of N/V After Surgery No 03/19/25 10:29 Non-Smoker Yes 03/19/25 10:29 Duration of Surgery greater No 03/19/25 10:29 than 60 minutes Number of Risk Factors 1 03/19/25 10:29 PONV Score Low Risk 03/19/25 10:29 Respiratory Assessment Respiratory Assessment - maintenance and operations supervisor: Respiratory Tract Infection Hx - maintenance and operations supervisor Hx Respiratory Tract Infection No 03/19/25 10:29 STOP Sleep Apnea STOP Sleep Apnea - maintenance and operations supervisor: STOP Sleep Apnea - maintenance and operations supervisor Hx Hypertension No 03/19/25 10:29 Hx Sleep Apnea No 03/19/25 10:29 CPAP BIPAP Do you snore loudly (louder No 03/19/25 10:29 than talking or can be heard Do you often feel tired/ No 03/19/25 10:29 fatigued/ sleepy during daytime? Has anyone observed you stop No 03/19/25 10:29 breathing during sleep? STOP Results Negative 03/19/25 10:29 QUESTION #5 FULL TEXT : Do you snore loudly (louder than talking or can be heard through closed doors)? 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 Specify any problems Hx of Preganancy in last 3 N/A 03/19/25 10:29 Months Nurse Filling Out Transfusion VCHRISTIN 03/19/25 10:29 & Questions: Date: 03/19/25 03/19/25 10:29 Time: 10:30 03/19/25 10:29 Patient unable to answer at this time (ie. confused, unrespo /Reproduction History /Reproductive History - maintenance and operations supervisor: /Reproductive Hx- maintenance and operations supervisor Hx Now No 03/19/25 10:29 Gestational Age (in weeks): EDC: Hx Hx Para Hx Section SAB No 03/19/25 10:29 Does the father of the baby or his family experience fever w Father of the baby Malignant Hypertension history comment Active Medications Active Medications: Current Medications Generic Name Dose Route Start Last Admin Trade Name Freq PRN Reason Stop Dose Admin Lactated Ringer's 1,000 mls @ 15 mls/hr 03/24/25 09:45 IV .Q48H EVANS PFSH Medical History Wears glasses Arthritis Former smoker Vitamin B12 deficiency Urinary frequency IFG (impaired fasting glucose) Osteoarthritis Prediabetes HLD (hyperlipidemia) CLAUDIA (iron deficiency anemia) Anemia Stage 3a chronic kidney disease HTN (hypertension) Home Medications Medication Instructions Recorded Last Taken Type cholecalciferol (vitamin D3) 50 2,000 unit PO DAILY supplement 01/22/20 Unknown History mcg (2,000 unit) capsule amlodipine 5 mg tablet 5 mg PO QDAY 01/04/25 Unknown History ferrous sulfate 325 mg (65 mg 325 mg PO QDAY 01/04/25 Unknown History iron) tablet mecobalamin (vitamin B12) 2,500 2,500 mcg PO .TWICE WEEKLY 01/04/25 Unknown History mcg chewable tablet Allergy/AdvReac Type Severity Reaction Status Date / Time No Known Allergies Allergy Verified 03/19/25 10:17 Family History Mother Liver disease Father Prostate cancer Surgical History Hx of colonoscopy History of tonsillectomy and adenoidectomy Social History Smoking Status: Former smoker quit date: 04/22/69 alcohol intake: current alcohol intake frequency: 0-2 drinks per day Alcohol type: wine substance use type: does not use Review of Systems (Anesthesia) ROS Narrative System reviewed and no additional complaints, except as documented.
[2025-03-24 10:01] VITALS: BP 155/67; PULSE 108; RESP 18; TEMP 36.6; O2SAT 100; BMI 22.7
[2025-03-24] MEDS: Lactated Ringers 1,000 ML 15 ML IV (10:07)
--- NOTE | 2025-03-24 10:30 | EGD_PTH ---
PATIENT: ALEJA SALCIDO LOC: EN U#:[id number] AGE/SX: 74/M ROOM: RE03/24/[address]: Dr. Nnamdi Vernon DO : 1950 BED: DIS: 03/24/2025 SPEC #: [id number] RECD: 03/24/25 13:42 STATUS: FER REPerri #: [id number] TRUNG: 03/24/25 10:[address]: Nnamdi Vernon DEPT: SURGICAL PATHOLOGY RECD BY: Marnie Erazo ENTERED: 03/25/25 08:50 SP TYPE: EGD BIOPSY TORREY DR: Dr. Donta Prabhakar DO Tissues: A - Esophagus, NOS B - Duodenum, NOS C - COLON BIOPSY D - Descending colon Procedures: Surgery Specimen Level IV HEADER OPERATION: Colonoscopy with biopsy, EGD with biopsy PRE-OP DIAGNOSIS: Screening for intestinal cancer, CLAUDIA, vitamin B12 deficiency TISSUE SUBMITTED: A- Distal esophagus biopsy, B- Duodenum biopsy, C- Splenic flexure biopsy,D- Descending colon biopsy MICROSCOPIC DIAGNOSIS A. Esophagus, distal, biopsies: - Benign squamous epithelium - Oxynto-cardiac mucosa with chronic inflammation - No goblet cell metaplasia is identified B. Small intestine, duodenum: * Irregular villous blunting with a focally increased mixed lymphoplasmacytic inflammatory cell infiltrate in the lamina propria and with Brianna's gland hyperplasia (See COMMENT) C. Large intestine, splenic flexure: - Benign colonic mucosa with normal appearing crypts without active inflammation and with a hyperplastic muscularis mucosae D. Large intestine, descending: * Benign colonic mucosa with normal appearing crypts without active inflammation and with a hyperplastic muscularis mucosae COMMENT The histopathological features in Part B are etiologically nonspecific and the differential diagnosis includes sensitivity to gluten and non-gluten proteins, small intestinal bacterial overgrowth, stasis related changes, infection, protein calorie malnutrition, tropical sprue, and medication. If celiac disease is a clinical concern, additional studies, such as tTG-IgA, are recommended MICROSCOPIC DESCRIPTION Slides are reviewed. GROSS DESCRIPTION A. Received in fixative is one container labeled with the patient's name and designated "Distal esophagus biopsy." The specimen consists of two irregular fragments of espana tissue that measure 0.3 and 0.6 cm. The specimen is totally submitted in one cassette. B. Received in fixative is one container labeled with the patient's name and designated "Duodenum biopsy." The specimen consists of multiple irregular fragments of espana tissue that in aggregate measure 0.6 x 0.3 x 0.1 cm. The specimen is totally submitted in one cassette. C. Received in fixative is one container labeled with the patient's name and designated "Splenic flexure biopsy." The specimen consists of one irregular fragment of espana tissue that measures 0.4 cm. The specimen is totally submitted in one cassette. D. Received in fixative is one container labeled with the patient's name and designated "Descending colon biopsy." The specimen consists of multiple irregular fragments of espana tissue that in aggregate measure 1 x 0.3 x 0.1 cm. The specimen is totally submitted in one cassette. MO 03/24/2025 CPT:[id number]
--- NOTE | 2025-03-24 11:35 | HP.PCM_ITS ---
[facility] - General General Date of Admission: 03/24/25 Date of Service: 03/24/25 Chief Complaint: Anemia and GI bleeding HPI Narrative ALEJA SALCIDO, is a 74-year-old gentleman, presents for an evaluation of new rectal bleeding. The bleeding is described as bright red blood noted on the toilet paper after wiping and occasionally as streaks in the toilet bowl. He reports this has been occurring intermittently for the past several weeks. He denies elif hematochezia or melena. He has not checked his blood pressure or weight at home, but has experienced increasing fatigue and mild shortness of breath with exertion over the past few months. He denies abdominal pain, recent changes in bowel habits, or use of nonsteroidal anti-inflammatory drugs (NSAIDs) or aspirin. This presentation follows the discovery of new microcytic anemia, which was found incidentally. His hemoglobin has dropped from a normal level of 14.1 g/dL in 2019 to 9.1 g/dL in 2024 pt reports that he began having rectal bleeding November 19, [address] to [place], rectal bleeding stooped on November 27, 2024; has not had any rectal bleeding since. Pt went and saw Dr Minaya and was diagnosed with anemia and was started on iron. Pt reports that he is not currently having any GI symptoms of concern, denies fatigue. Pt's last colonoscopy was with Dr Acosta. No significant past medical history. Discovered to have microcytic anemia secondary to iron deficiency anemia. Also recently diagnosed with possible CKD based on an increased BUN/creatinine ratio. * 2019: Hemoglobin 14.1 g/dL. * 2024: Hemoglobin 9.1 g/dL., Ferritin 38, iron 11 * Other 2024 labs : Microcytic anemia, iron deficiency anemia, and increased BUN/creatinine ratio. * Transferrin Saturation (TSAT): Low. * Vitamin B12: Low ] [facility] Medical History Wears glasses Arthritis Former smoker Vitamin B12 deficiency Urinary frequency IFG (impaired fasting glucose) Osteoarthritis Prediabetes HLD (hyperlipidemia) CLAUDIA (iron deficiency anemia) Anemia Stage 3a chronic kidney disease HTN (hypertension) Home Medications Medication Instructions Recorded Last Taken Type cholecalciferol (vitamin D3) 50 2,000 unit PO DAILY valle pplement 01/22/20 Unknown History mcg (2,000 unit) capsule amlodipine 5 mg tablet 5 mg PO QDAY 01/04/25 06:30 History ferrous sulfate 325 mg (65 mg 325 mg PO QDAY 01/04/25 Unknown History iron) tablet mecobalamin (vitamin B12) 2,500 2,500 mcg PO .TWICE WE EKLY 01/04/25 Unknown History mcg chewable tablet Allergy/AdvReac Type Severity Reaction Status Date / Time No Known Allergies Allergy Verified 03/24/25 10:01 Family History Mother Liver disease Father Prostate cancer Surgical History Hx of colonoscopy History of tonsillectomy and adenoidectomy Social History Smoking Status: Former smoker quit date: 04/22/69 alcohol intake: current alcohol intake frequency: 0-2 drinks per day Alcohol type: wine substance use type: does not use ROS Constitutional Constitutional: Denies fatigue, fever(s), poor appetite, weight gain or weight loss Gastrointestinal Gastrointestinal: Denies belching, bloating, change in bowel habits, change in stool character, chewing difficulty, coffee ground emesis, constipation, cramping, diarrhea, dyspepsia, dysphagia, early satiety, excessive flatus, fecal incontinence, heartburn, hematemesis, hematochezia, hemorrhoids, loose stools, melena, nausea, odynophagia, rectal bleeding, tenesmus, vomiting or weight changes Vital Signs Vital Signs Vital Signs: 03/24/25 10:01 03/24/25 10:01 03/24/25 10:01 Temperature 97.8 F Temperature Source Temporal Pulse Rate 108 H Respiratory Rate 18 Respiratory Pattern Normal Blood Pressure 155/67 H Blood Pressure Mean 96 Blood Pressure Source Monitor Blood Pressure Position Sitting Blood Pressure Location Right Arm Baseline BP 155/67 Pulse Ox 100 Oxygen Delivery Method Room Air Weight Weight: 136 lb 10.986 oz Body Mass Index (BMI) 22.7 Assessment & Plan Assessment/Plan (1) Screening for intestinal cancer: (2) CLAUDIA (iron deficiency anemia): (3) Vitamin B12 deficiency: PLAN: Assessment and Plan Assessment and Plan (1) Screening for intestinal cancer: Status: Acute (2) Vitamin B12 deficiency: Status: Acute (3) CLAUDIA (iron deficiency anemia): Status: Acute Plan: 74-year-old male with new rectal bleeding, iron deficiency anemia, B12 deficiency, and possible CKD. 1. Gastrointestinal (GI) Bleeding and Anemia: * The patient presents with significant iron deficiency anemia (CLAUDIA) that has worsened over the last five years, dropping his Hgb from 14.1 to 9.1. * This chronic iron loss, now accompanied by new rectal bleeding, points toward a GI source. * The most common cause of CLAUDIA in elderly men is chronic GI blood loss from sources such as esophagitis, ulcers, or GI malignancy, especially colon cancer. * Rectal bleeding in an elderly patient warrants urgent evaluation due to the risk of colorectal cancer. * The elevated BUN/creatinine ratio is non-specific but could also be related to an upper GI bleed 2. Vitamin B12 Deficiency: * The patient also has B12 deficiency, which can cause macrocytic anemia and is a distinct process from iron deficiency. * Combining both iron deficiency and B12 deficiency can result in a confusing red blood cell picture; however, a low MCV (microcytic) suggests the iron deficiency is the predominant cause of the red blood cell morphology. * The B12 deficiency needs to be treated to prevent potential neurological complications. * Common causes in the elderly include pernicious anemia (autoimmune), malabsorption syndromes, or the long-term use of acid-reducing medications. 3. Chronic Kidney Disease (CKD): * The patient has a history of possible CKD based on an increased BUN/creatinine ratio. * CKD itself can cause anemia (anemia of chronic disease) by reducing the production of erythropoietin. * The elevated BUN and creatinine levels need further evaluation with an estimated Glomerular Filtration Rate (eGFR) and possibly a urine albumin- creatinine ratio (UACR) to confirm and stage the CKD. * The patient's age and potential comorbidities like hypertension or diabetes increase the risk of CKD. Plan 1. Diagnostic Plan: * Urgent Colonoscopy: To evaluate for the source of rectal bleeding and CLAUDIA, especially considering the patient's age and family history of colon cancer. * Esophagogastroduodenoscopy (EGD): To be performed concurrently with the colonoscopy if no lower GI source is identified, or if the elevated BUN/creatinine ratio is highly suggestive of an upper GI bleed. * Repeat Laboratory Studies: * Repeat CBC with differential. * Comprehensive Metabolic Panel (CMP) including electrolytes, BUN, and creatinine to re-calculate the eGFR. * Check folic acid and ferritin levels. * Check for markers of intrinsic factor-related malabsorption, such as an intrinsic factor blocking antibody, to evaluate for pernicious anemia. * Check labs for celiac disease, inflammatory bowel disease, serum protein electrophoresis, ESR, CRP, LDH * Nephrology Consult: possible CKD, consultation is recommended for further evaluation and management. Therapeutic Plan: * Iron Supplementation: Continue or re-initiate oral iron supplementation. Monitor response and side effects. * Vitamin B12 Replacement: Initiate vitamin B12 replacement therapy, likely starting with injections due to potential malabsorption issues. * CKD Management: Initiate lifestyle and dietary modifications for CKD, focusing on blood pressure control and avoiding nephrotoxic medications like NSAIDs. * GI Bleed Management: No specific treatment initiated at this time beyond the planned urgent endoscopy, as the bleeding is not considered life-threatening. : Orders: Orders CBC W/Diff, Automated Today D64.9 - Anemia, unspecified, Z12.10 - Encounter for screening for malignant neoplasm of intestinal tract, unspecified CRISTIAN + Protein Elect, Serum Today Z12.10 - Encounter for screening for malignant neoplasm of intestinal tract, unspecified LDH Today Z12.10 - Encounter for screening for malignant neoplasm of intestinal tract, unspecified Retic Panel Count Today Z12.10 - Encounter for screening for malignant neoplasm of intestinal tract, unspecified Iron Today D64.9 - Anemia, unspecified, Z12.10 - Encounter for screening for malignant neoplasm of intestinal tract, unspecified Celiac Disease Profile Today Z12.10 - Encounter for screening for malignant neoplasm of intestinal tract, unspecified Ferritin Today D64.9 - Anemia, unspecified, Z12.10 - Encounter for screening for malignant neoplasm of intestinal tract, unspecified ANCA Today Z12.10 - Encounter for screening for malignant neoplasm of intestinal tract, unspecified Allergen, Food Profile 14 Today Z12.10 - Encounter for screening for malignant neoplasm of intestinal tract, unspecified Immunoglobulins G/A/M/E Today Z12.10 - Encounter for screening for malignant neoplasm of intestinal tract, unspecified CRP Today Z12.10 - Encounter for screening for malignant neoplasm of intestinal tract, unspecified Erythrocyte Sed Rate Today Z12.10 - Encounter for screening for malignant neoplasm of intestinal tract, unspecified Thyroid Stim Hormone (TSH) Today D64.9 - Anemia, unspecified, Z12.10 - Encounter for screening for malignant neoplasm of intestinal tract, unspecified Comprehensive Metabolic Profil Today Z12.10 - Encounter for screening for malignant neoplasm of intestinal tract, unspecified IBD Expanded Profile Today Z12.10 - Encounter for screening for malignant neoplasm of intestinal tract, unspecified Anti-Parietal Cell AB, QN Today D50.9 - Iron deficiency anemia, unspecified, E53.8 - Deficiency of other specified B group vitamins, Z12.10 - Encounter for screening for malignant neoplasm of intestinal tract, unspecified Intrinsic Factor Ab Today D50.9 - Iron deficiency anemia, unspecified, E53.8 - Deficiency of other specified B group vitamins, Z12.10 - Encounter for screening for malignant neoplasm of intestinal tract, unspecified Gastrin, Serum Today D50.9 - Iron deficiency anemia, unspecified, E53.8 - Deficiency of other specified B group vitamins, Z12.10 - Encounter for screening for malignant neoplasm of intestinal tract, unspecified
[2025-03-24 12:26] VITALS: BP 131/72; BP 135/85; BP 155/67; PULSE 103; PULSE 97; RESP 18; RESP 20; TEMP 37.1; O2SAT 96; O2SAT 98
--- NOTE | 2025-03-24 12:26 | PCM.POST.ANE ---
Anesthesia: Postop Eval I Current Vital Signs Temperature: 98.8 F Pulse Rate: 103 Blood Pressure: 135/85 Respiratory Rate: 20 Pulse Ox: 96 Assessment Airway patent: Yes Spontaneous unlabored respirations: Yes nausea: No Vomiting: No Anesthesia Complication: No Fluid Hydration Crystalloid volume administer (ml): 300 Total IV fluid infused: 300 Progress Note Anesthesia document: Postop Eval 1 completed: Yes
--- NOTE | 2025-03-24 12:28 | OP.PROVAT_ITS ---
03/24/2025 Donta Prabhakar [address] [place] [address] Re : Upper GI endoscopy procedure for Moris Acevedo Dear Dr. Prabhakar This procedure was performed on Monday, March 24, 2025. My impressions and recommendations are as follows: Impressions : - LA Grade A reflux esophagitis with no bleeding. Biopsied. - Medium-sized hiatal hernia. - Erythematous duodenopathy. Biopsied. Recommendations : - Discharge patient to home. - Resume previous diet. - Continue present medications. - Await pathology results. My findings are described in the full procedure note, which is enclosed. If I can be of further assistance, please feel free to contact me at . Sincerely, Nnamdi Vernon, 03/24/2025 12:28:07 PM This report has been signed electronically.
--- NOTE | 2025-03-24 12:28 | OP.EGD_ITS ---
Patient Name: Moris Acevedo Procedure Date: 03/24/2025 11:42 AM Date of : 1950 Age: 74 Procedure: Upper GI endoscopy Indications: Generalized abdominal pain, Iron deficiency anemia Providers: Nnamdi Vernon DO Referring MD: Donta Prabhakar Medicines: Monitored Anesthesia Care Patient Profile: This is a 74 year old male. Refer to note in patient chart for documentation of history and physical. Complications: No immediate complications. Procedure: Pre-Anesthesia Assessment: - Prior to the procedure, a History and Physical was performed, and patient medications and allergies were reviewed. The patient is competent. The risks and benefits of the procedure and the sedation options and risks were discussed with the patient. All questions were answered and informed consent was obtained. Patient identification and proposed procedure were verified by the physician in the pre-procedure area. Mental Status Examination: alert and oriented. Airway Examination: normal oropharyngeal airway and neck mobility. Respiratory Examination: clear to auscultation. CV Examination: normal. Prophylactic Antibiotics: The patient does not require prophylactic antibiotics. Prior Anticoagulants: The patient has taken no anticoagulant or antiplatelet agents. ASA Grade Assessment: II - A patient with mild systemic disease. After reviewing the risks and benefits, the patient was deemed in satisfactory condition to undergo the procedure. The anesthesia plan was to use monitored anesthesia care (MAC). Immediately prior to administration of medications, the patient was re-assessed for adequacy to receive sedatives. The heart rate, respiratory rate, oxygen saturations, blood pressure, adequacy of pulmonary ventilation, and response to care were monitored throughout the procedure. The physical status of the patient was re-assessed after the procedure. After obtaining informed consent, the endoscope was passed under direct vision. Throughout the procedure, the patient's blood pressure, pulse, and oxygen saturations were monitored continuously. The pediatric colonoscope was introduced through the mouth, and advanced to the third part of the duodenum. Small bowel enteroscopy was deemed necessary. The upper GI endoscopy was accomplished without difficulty. The patient tolerated the procedure well. Scope In: 11:57:54 AM Scope Out: 12:01:35 PM Total Procedure Duration Time 0 hours 3 minutes 41 seconds Findings: LA Grade A (one or more mucosal breaks less than 5 mm, not extending between tops of 2 mucosal folds) esophagitis with no bleeding was found 39 to 40 cm from the incisors. Biopsies were taken with a cold forceps for histology. Verification of patient identification for the specimen was done. A medium-sized hiatal hernia was present. No other significant abnormalities were identified in a careful examination of the stomach. Patchy mildly erythematous mucosa without active bleeding and with no stigmata of bleeding was found in the entire duodenum. Biopsies were taken with a cold forceps for histology. Verification of patient identification for the specimen was done. Estimated blood loss was minimal. Impression: - LA Grade A reflux esophagitis with no bleeding. Biopsied. - Medium-sized hiatal hernia. - Erythematous duodenopathy. Biopsied. Recommendation: - Discharge patient to home. - Resume previous diet. - Continue present medications. - Await pathology results. Procedure Code(s): --- Professional --- 50967, Small intestinal endoscopy, enteroscopy beyond second portion of duodenum, not including ileum; with biopsy, single or multiple CPT copyright 2021 [employer]. All rights reserved. The codes documented in this report are preliminary and upon equipment processer storage review may be revised to meet current compliance requirements. Nnamdi Vernon DO 03/24/2025 12:28:07 PM This report has been signed electronically. Number of Addenda: 0 Note Initiated On: 03/24/2025 11:42 AM
[2025-03-24 12:32] VITALS: BP 121/75; BP 155/67; PULSE 93; RESP 12; O2SAT 97
--- NOTE | 2025-03-24 12:32 | OP.PROVAT_ITS ---
03/24/2025 Donta Prabhakar [address] [place] [address] Re : Colonoscopy procedure for Moris Acevedo Dear Dr. Prabhakar This procedure was performed on Monday, March 24, 2025. My impressions and recommendations are as follows: Impressions : - Diverticulosis in the recto-sigmoid colon and in the sigmoid colon. - Segmental severe inflammation was found in the descending colon and at the splenic flexure secondary to ischemic colitis. Biopsied. Recommendations : - Discharge patient to home. - Resume previous diet. - Continue present medications. - Await pathology results. - Repeat colonoscopy for surveillance based on pathology results. My findings are described in the full procedure note, which is enclosed. If I can be of further assistance, please feel free to contact me at . Sincerely, Nnamdi Vernon, 03/24/2025 12:31:27 PM This report has been signed electronically.
--- NOTE | 2025-03-24 12:32 | OP.COLON_ITS ---
Patient Name: Moris Acevedo Procedure Date: 03/24/2025 12:01 PM Date of : 1950 Age: 74 Procedure: Colonoscopy Indications: Screening for colorectal malignant neoplasm Providers: Nnamdi Vernon DO Referring MD: Donta Prabhakar Medicines: Monitored Anesthesia Care Patient Profile: This is a 74 year old male. Refer to note in patient chart for documentation of history and physical. Last Colonoscopy: none. The patient's first colonoscopy is today. Complications: No immediate complications. Procedure: Pre-Anesthesia Assessment: - Prior to the procedure, a History and Physical was performed, and patient medications and allergies were reviewed. The patient is competent. The risks and benefits of the procedure and the sedation options and risks were discussed with the patient. All questions were answered and informed consent was obtained. Patient identification and proposed procedure were verified by the physician in the pre-procedure area. Mental Status Examination: alert and oriented. Airway Examination: normal oropharyngeal airway and neck mobility. Respiratory Examination: clear to auscultation. CV Examination: normal. Prophylactic Antibiotics: The patient does not require prophylactic antibiotics. Prior Anticoagulants: The patient has taken no anticoagulant or antiplatelet agents. ASA Grade Assessment: II - A patient with mild systemic disease. After reviewing the risks and benefits, the patient was deemed in satisfactory condition to undergo the procedure. The anesthesia plan was to use monitored anesthesia care (MAC). Immediately prior to administration of medications, the patient was re-assessed for adequacy to receive sedatives. The heart rate, respiratory rate, oxygen saturations, blood pressure, adequacy of pulmonary ventilation, and response to care were monitored throughout the procedure. The physical status of the patient was re-assessed after the procedure. After I obtained informed consent, the scope was passed under direct vision. Throughout the procedure, the patient's blood pressure, pulse, and oxygen saturations were monitored continuously. The pediatric colonoscope was introduced through the anus and advanced to the cecum, identified by appendiceal orifice and ileocecal valve. The colonoscopy was performed without difficulty. The patient tolerated the procedure well. The quality of the bowel preparation was adequate. The ileocecal valve, appendiceal orifice, and rectum were photographed. Scope In: 12:03:47 PM Scope Withdrawal Time 0 hours 10 minutes 30 seconds Scope Out: 12:19:27 PM Total Procedure Duration Time 0 hours 15 minutes 40 seconds Findings: The perianal and digital rectal examinations were normal. A few small-mouthed diverticula were found in the recto-sigmoid colon and sigmoid colon. Segmental severe inflammation characterized by angiodysplasia, erosions, erythema and friability was found in the descending colon and at the splenic flexure. Biopsies were taken with a cold forceps for histology. Verification of patient identification for the specimen was done. Estimated blood loss was minimal. Impression: - Diverticulosis in the recto-sigmoid colon and in the sigmoid colon. - Segmental severe inflammation was found in the descending colon and at the splenic flexure secondary to ischemic colitis. Biopsied. Recommendation: - Discharge patient to home. - Resume previous diet. - Continue present medications. - Await pathology results. - Repeat colonoscopy for surveillance based on pathology results. Procedure Code(s): --- Professional --- 39123, Colonoscopy, flexible; with biopsy, single or multiple CPT copyright 2021 [employer]. All rights reserved. The codes documented in this report are preliminary and upon administration clerk review may be revised to meet current compliance requirements. Nnamdi Vernon DO 03/24/2025 12:31:27 PM This report has been signed electronically. Number of Addenda: 0 Note Initiated On: 03/24/2025 12:01 PM
[2025-03-24 12:35] VITALS: BP 118/84; BP 155/67; PULSE 93; RESP 18; O2SAT 98
[2025-03-24 12:38] VITALS: BP 114/70; BP 155/67; PULSE 82; RESP 18; TEMP 36.9; O2SAT 98
[2025-03-24 13:01] VITALS: BP 155/67
--- NOTE | 2025-03-24 13:32 | POSTOPAN2_ITS ---
Anesthesia Postop Eval I Sum Postop Eval Completion status Anesthesia document: Postop Eval 1 completed: Yes Anesthesia Postop Eval I Summary Anesthesia Postop Eval I Summary: Anesthesia Postop Eval I: Assessment Summary Airway patent Yes 03/24/25 12:26 PROTECTION [email or web address] Spontaneous unlabored Yes 03/24/25 12:26 PROTECTION [email or web address] respirations Mental status nausea No 03/24/25 12:26 PROTECTION [email or web address] Vomiting No 03/24/25 12:26 PROTECTION [email or web address] Anesthesia Postop Eval I: Fluid Summary Crystalloid volume administer 300 03/24/25 12:26 PROTECTION [email or web address] (ml) Colloids volume administered ( ml) Blood Product volume administered (ml) Total IV fluid infused 300 03/24/25 12:26 PROTECTION [email or web address] Anesthesia Postop Eval I: Summary Notes Anesthesia Complication No 03/24/25 12:26 PROTECTION [email or web address] Anesthesia Complication Comment: Post-operative progress note Anesthesia: Postop Eval II Evaluation Mental status: Awake Pain Level: 0 nausea: No Vomiting: No
--- NOTE | 2025-03-24 13:32 | PCM.POSTANE2 ---
Anesthesia Postop Eval I Sum Postop Eval Completion status Anesthesia document: Postop Eval 1 completed: Yes Anesthesia Postop Eval I Summary Anesthesia Postop Eval I Summary: Anesthesia Postop Eval I: Assessment Summary Airway patent Yes 03/24/25 12:26 FURNACE AND WASH EQUIPMENT [email or web address] Spontaneous unlabored Yes 03/24/25 12:26 FURNACE AND WASH EQUIPMENT OPERATOR.CSIR respirations Mental status nausea No 03/24/25 12:26 FURNACE AND WASH EQUIPMENT OPERATOR.CSIR Vomiting No 03/24/25 12:26 FURNACE AND WASH EQUIPMENT OPERATOR.CSIR Anesthesia Postop Eval I: Fluid Summary Crystalloid volume administer 300 03/24/25 12:26 FURNACE AND WASH EQUIPMENT OPERATOR.CSIR (ml) Colloids volume administered ( ml) Blood Product volume administered (ml) Total IV fluid infused 300 03/24/25 12:26 FURNACE AND WASH EQUIPMENT OPERATOR.CSIR Anesthesia Postop Eval I: Summary Notes Anesthesia Complication No 03/24/25 12:26 FURNACE AND WASH EQUIPMENT OPERATOR.CSIR Anesthesia Complication Comment: Post-operative progress note Anesthesia: Postop Eval II Evaluation Mental status: Awake Pain Level: 0 nausea: No Vomiting: No
== END 2025-03-24 13:12 | disposition home or self-care (01) ==
LOC: EN 09:40 → AC 09:41
PROVIDERS: PCP Family Medicine; Referring Provider Family Medicine; Visit Provider Internal Medicine Gastroenterology
PROC: 0DJD8ZZ Inspection of Lower Intestinal Tract, Via Natural or Artificial Opening Endoscopic (ICD-10-PCS; CPT 45378; principal; 2025-03-24 10:25)
DX: Z12.11 Encounter for screening for malignant neoplasm of colon (principal); N18.31 Chronic kidney disease, stage 3a; D50.9 Iron deficiency anemia, unspecified; K21.00 Gastro-esophageal reflux disease with esophagitis, without bleeding; K57.30 Diverticulosis of large intestine without perforation or abscess without bleeding; I12.9 Hypertensive chronic kidney disease with stage 1 through stage 4 chronic kidney disease, or unspecified chronic kidney disease; Z87.891 Personal history of nicotine dependence; K44.9 Diaphragmatic hernia without obstruction or gangrene; E78.5 Hyperlipidemia, unspecified; K55.20 Angiodysplasia of colon without hemorrhage
CPT/HCPCS: 44361; 45380; 88305; J2405